=== PATIENT | male | born 1950 | race Caucasian/White ===

== ENCOUNTER 2016-07-30 11:11 | Inpatient (IN) | payer MEDICARE ==
[2016-07-30 12:18] LABS: Glucose,Whole Blood 125 mg/dL (75-99)
[2016-07-30 13:08] LABS: Anisocytosis Slight; Basophils % (A) 0 %; CH 30.4; CHCM 31.1; Eosinophils # (A) 0.1 k/uL (0-0.7); Eosinophils % (A) 1 %; HCT 36.9 % (39.0-53.0); HDW 3.21; HGB 11.2 gm/dL (13.0-17.5); Hypochromasia Moderate; Luc # (Auto) 0.18; Luc % (Auto) 2; Lymphocytes # (A) 0.7 k/uL (1.0-4.8); Lymphocytes % (A) 9 %; MCH 29.9 pg (25.0-35.0); MCHC 30.3 g/dL (31.0-37.0); MCV 98.6 fL (80.0-100.0); Macrocytosis Slight; Mean Platelet Volume 8.1; Monocytes # (A) 0.5 k/uL (0-1.0); Monocytes % (A) 7 %; Neutrophils # (A) 6.3 k/uL (1.3-7.7); Neutrophils % (A) 81 %; RBC 3.75 m/uL (4.30-5.90); WBC 7.8 k/uL (3.8-10.6); WBC (Perox) 8.12
[2016-07-30 13:12] LABS: INR 4.9 (<1.1); Prothrombin Time 48.6 sec (9.0-12.0)
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
[2016-07-30 13:58] LABS: ALT 23 U/L (21-72); AST 29 U/L (17-59); Alkaline Phosphatase 119 U/L (38-126); Anion Gap 13 mmol/L; Blood Urea Nitrogen 16 mg/dL (9-20); Calcium 9.3 mg/dL (8.4-10.2); Carbon Dioxide 30 mmol/L (22-30); Chloride 102 mmol/L (98-107); Glucose 127 mg/dL (74-99); Non-African American GFR(MDRD) >60 (>60 ml/min/1.73 sqM); Potassium 3.9 mmol/L (3.5-5.1); Sodium 145 mmol/L (137-145); Total Bilirubin 2.4 mg/dL (0.2-1.3); Total Protein 7.6 g/dL (6.3-8.2)
[2016-07-30 14:22] LABS: Hemoglobin A1C 5.7 % (4.2-6.1)
[2016-07-30] MEDS: ASPIRIN 81 MG CHEW PO SCH (14:32)
[2016-07-30 14:47] LABS: Uric Acid 3.8 mg/dL (3.5-8.5)
--- NOTE | 2016-07-30 15:16 | XR ---
EXAMINATION TYPE: XR chest 2V DATE OF EXAM: 07/30/2016 3:09 PM COMPARISON: NONE INDICATION: Dyspnea TECHNIQUE: Single frontal view of the chest is obtained. FINDINGS: The heart size is enlarged. The pulmonary vasculature is normal. There is improved retrocardiac infiltrate. Mild residual remains. Some right lower lobe infiltrate ma y be present. IMPRESSION: 1. Right lower lobe and suggestion of minimal retrocardiac infiltrate. Retrocardiac infiltrate is imp roving. 2. Cardiomegaly.
--- NOTE | 2016-07-30 15:23 | US ---
EXAMINATION TYPE: US carotid duplex BILAT DATE OF EXAM: 07/30/2016 3:02 PM COMPARISON: NONE CLINICAL HISTORY: syncope. EXAM MEASUREMENTS: RIGHT: Peak Systolic Velocity (PSV) cm/sec ----- Right CCA: 50.5 ----- Right ICA: 141.7 ----- Right ECA: 66.9 ICA/CCA ratio: 2.8 RIGHT: End Diastole cm/sec ----- Right CCA: 22.6 ----- Right ICA: 55.0 ----- Right ECA: 5.4 LEFT: Peak Systolic Velocity (PSV) cm/sec ----- Left CCA: 61.5 ----- Left ICA: 135.7 ----- Left ECA: 85.3 ICA/CCA ratio: 2.2 LEFT: End Diastole cm/sec ----- Left CCA: 16.4 ----- Left ICA: 45.1 ----- Left ECA: 12.8 VERTEBRALS (direction of flow): Right Vertebral: Antegrade Left Vertebral: Antegrade TECHNOLOGIST IMPRESSION: Moderate plaque noted bilateral bifurcations. Mildly increased velocities n oted right ICA and left ICA There is intimal thickening atheromatous plaquing within the right carotid bulb. Doppler waveforms ap pear normal. Some turbulent flow is noted within the distal right internal carotid artery. Atheromato us plaquing and intimal thickening is within the left carotid bulb. There is filling of the acoustic windows within the mid common carotid artery and proximal internal carotid artery. There is elevation of the internal carotid artery velocities bilaterally.t There is elevated ratios present bilaterally. IMPRESSION: 1. Elevated velocities with elevated ratios within the internal carotid arteries present bilaterally. This would place the degree of stenosis in the range of 50-69% bilaterally. Criteria for Assigning % of Stenosis / Diameter reduction (Estimation based on the indirect measurements of the internal carotid artery velocities (ICA PSV). 1. Normal (no stenosis)=ICA PSV < 125 cm/s: ratio < 2.0: ICA EDV<40 cm/s. 2. Less than 50% stenosis=ICA PSV < 125 cm/s: ratio < 2.0: ICA EDV<40 cm/s. 3. 50 to 69% stenosis=ICA PSV of 125 to 230 cm/s: ration 2.0 ? 4.0: ICA EDV 40-100 cm/s. 4. Greater than 70% stenosis to near occlusion= ICA PSV > 230 cm/s: ratio > 4.0: ICA EDV > 100 cm/s. 5. Near occlusion= ICA PSV velocities may be low or undetectable: variable ratio and ICA EDV. 6. Total occlusion=unable to detect flow.
[2016-07-30] MEDS: FUROSEMIDE 10 MG/ML 4 ML VIAL IV SCH ×2 (15:58→20:19)
[2016-07-30 17:08] LABS: Glucose,Whole Blood 112 mg/dL (75-99)
--- NOTE | 2016-07-30 17:31 | CONS ---
DATE OF CONSULTATION: Mr. Espitia is a 66-year-old male who was admitted directly from Dr. Rueda's office. He has a known history of what appears to be aortic valve placement many years ago, has not been followed in the cardiology office, history of chronic atrial fibrillation, hypertension, hyperlipidemia, and diabetes mellitus, who presented with progressive ulceration and lower extremities, progressive weakness and dyspnea. Two weeks ago he had an episode of fall that appears to be related to weakness as well as hypoglycemia. According to him, he did not have full syncopal episode. He denies any symptoms of chest pain. It is unclear if he had any obstructive coronary artery disease at time of his cardiac catheterization. I do not have those reports. He is very limited in his physical activity, has chronic dyspnea on exertion and progressive dyspnea as well as nonhealing ulcers in the lower extremities. I am not quite sure if evaluation of his peripheral circulation was done in the past. He has symptoms to suggest PND. No palpitation. He had the fall but no clear syncope according to him. He is unsteady walking. His coronary risk factors are remarkable for hypertension, hyperlipidemia, and diabetes mellitus. He is a nonsmoker. His medications at home include: 1. Coumadin. 2. Levothyroxine 0.025 mg daily. 3. Aspirin 81 mg daily. 4. Metformin 1 gram daily. 5. Simvastatin 40 mg daily. 6. Metoprolol titrate 25 mg twice a day. 7. Zestril 20 mg daily. 8. Glimepiride. 9. Lasix 40 mg twice a day. REVIEW OF SYSTEMS: RESPIRATORY SYSTEM: Had dyspnea on exertion. No recent wheezing or cough. GI: No recent GI bleeding. No peptic ulcer disease. system: No dysuria or hematuria. Nervous system: No history of stroke. PHYSICAL EXAMINATION: He is a 66-year-old male, alert, ( ) obese, mildly dyspneic. Blood pressure 146/90 with a heart in the 90s. HEAD: Normocephalic. EYES: Sclerae anicteric. NECK: No bruit. LUNGS: Clear to auscultation. HEART: Irregularly irregular. S1, S2, no S3, with systolic murmur 2/6 heard at the base. No diastolic murmur. No rub. ABDOMEN: Soft, obese, nontender. Extremities with ulceration noted on both legs, nonhealing, severe discoloration with 2+ edema and 1+ distal pulses. Lab data is not available. IMPRESSION: 1. Nonhealing ulcer of the lower extremities with decreased pulses. Could represent a peripheral vascular disease. 2. Episode of fall but no clear evidence of syncope. 3. Probable prior aortic valve replacement. 4. Atrial fibrillation appears to be chronic. 5. Hypertension. 6. Hyperlipidemia. 7. Diabetes mellitus. 8. Morbid obesity. RECOMMENDATION: I will obtain echocardiogram with Doppler. We will evaluate his lab data. I will try to obtain his prior work-up. I will start him on intravenous diuretics. He will be seen by Dr. Houser. If not done, he will need venous as well as an arterial duplex of his lower extremities. Depending on those findings, further recommendation will be made. Thank you for this consult. We will follow with you.
[2016-07-30] MEDS: HYDROcodone/APAP 5-325MG 1 EACH TAB PO PRN (17:58)
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
[2016-07-30] MEDS: METOPROLOL TARTRATE 25 MG TAB PO SCH (20:16)
--- NOTE | 2016-07-30 20:22 | US ---
EXAMINATION TYPE: US venous doppler duplex LE DATE OF EXAM: 07/30/2016 8:15 PM COMPARISON: NONE CLINICAL HISTORY: leg ulcers. Swelling. Patient states he takes blood thinners SIDE PERFORMED: Bilateral VESSELS IMAGED: External Iliac Vein (EIV) Common Femoral Vein Deep Femoral Vein Greater Saphenous Vein * Femoral Vein Popliteal Vein Small Saphenous Vein * Proximal Calf Veins (* superficial vessels) TECHNOLOGIST IMPRESSION: Right Leg: Negative for DVT Left Leg: Negative for DVT IMPRESSION: Normal exam. No evidence of deep venous thrombosis.
[2016-07-30 21:59] LABS: Glucose,Whole Blood 127 mg/dL (75-99)
[2016-07-31 01:55] LABS: Magnesium 1.9 mg/dL (1.6-2.3); Potassium 4.3 mmol/L (3.5-5.1)
[2016-07-31] MEDS: HYDROcodone/APAP 5-325MG 1 EACH TAB PO PRN ×3 (02:04→16:36)
[2016-07-31 06:18] LABS: Anisocytosis Slight; Basophils % (A) 0 %; Eosinophils # (A) 0.2 k/uL (0-0.7); Eosinophils % (A) 2 %; HCT 35.5 % (39.0-53.0); HDW 3.08; HGB 10.8 gm/dL (13.0-17.5); Hypochromasia Moderate; Luc # (Auto) 0.22; Luc % (Auto) 3; Lymphocytes # (A) 0.8 k/uL (1.0-4.8); Lymphocytes % (A) 10 %; MCH 29.7 pg (25.0-35.0); MCHC 30.4 g/dL (31.0-37.0); MCV 97.6 fL (80.0-100.0); Macrocytosis Slight; Monocytes # (A) 0.6 k/uL (0-1.0); Monocytes % (A) 8 %; Neutrophils % (A) 77 %; RBC 3.64 m/uL (4.30-5.90); RDW 16.8 % (11.5-15.5); WBC 7.7 k/uL (3.8-10.6); WBC (Perox) 7.99
[2016-07-31 06:31] LABS: INR 3.3 (<1.1); Prothrombin Time 32.1 sec (9.0-12.0)
[2016-07-31 06:35] LABS: ALT 28 U/L (21-72); AST 22 U/L (17-59); Alkaline Phosphatase 120 U/L (38-126); Anion Gap 11 mmol/L; Blood Urea Nitrogen 19 mg/dL (9-20); C Reactive Protein 12.9 mg/L (<10.0); Calcium 9.2 mg/dL (8.4-10.2); Carbon Dioxide 32 mmol/L (22-30); Chloride 99 mmol/L (98-107); Glucose 119 mg/dL (74-99); Non-African American GFR(MDRD) >60 (>60 ml/min/1.73 sqM); Potassium 4.2 mmol/L (3.5-5.1); Sodium 142 mmol/L (137-145); Total Bilirubin 2.3 mg/dL (0.2-1.3); Total Protein 7.5 g/dL (6.3-8.2)
[2016-07-31] MEDS: metFORMIN 500 MG TAB PO SCH (06:49)
[2016-07-31] MEDS: LEVOTHYROXINE 25 MCG TAB PO SCH (06:49)
[2016-07-31] MEDS: GLIMEPIRIDE 1 MG TAB PO SCH (06:50)
[2016-07-31 06:57] LABS: Glucose,Whole Blood 114 mg/dL (75-99)
[2016-07-31 07:26] LABS: Hepatitis B Surface Ag Index 0.08
[2016-07-31 07:32] LABS: Hepatitis B Core IgM Index 0.05
[2016-07-31 07:43] LABS: Hepatitis C Virus IgG Index 0.03
[2016-07-31] MEDS: ASPIRIN 81 MG CHEW PO SCH (07:54)
[2016-07-31] MEDS: ATORVASTATIN 20 MG TAB PO SCH (07:54)
[2016-07-31] MEDS: ALLOPURINOL 300 MG TAB PO SCH (07:54)
[2016-07-31] MEDS: FUROSEMIDE 10 MG/ML 4 ML VIAL IV SCH ×2 (07:54→21:03)
[2016-07-31] MEDS: METOPROLOL TARTRATE 25 MG TAB PO SCH ×2 (07:55→21:06)
[2016-07-31 08:00] LABS: Hepatitis C Virus IgG Ab Negative (Negative)
[2016-07-31 08:58] LABS: Erythrocyte Sedimentation Rate 50 mm/hr (0-15)
--- NOTE | 2016-07-31 09:52 | P.PN ---
Subjective Principal diagnosis: Acute congestive heart failure exacerbation Patient is a 66-year-old male with known history of aortic valve replacement and history of cardiomyopathy who was admitted to [facility] with multiple medical problems including syncopal episode, worsening shortness of breath with evidence of acute exacerbation of congestive heart failure, bilateral lower extremity cellulitis with large ulcerations on bilateral pretibial areas. He was admitted to telemetry floor he was started on IV Lasix he was seen by cardiology and by infectious disease. Today he is feeling somewhat better his shortness of breath has improved lower extremity swelling has improved he has dressing on bilateral lower extremities. He denies any chest pain no dizziness no nausea or vomiting no abdominal pain and no urinary symptoms. Objective - Vital Signs Vital signs: Vital Signs Temp 97.3 F L 07/31/16 07:48 Pulse 94 07/31/16 07:48 Resp 18 07/31/16 07:48 BP 124/73 07/31/16 07:48 Pulse Ox 92 L 07/31/16 07:48 Intake & Output 07/30/16 07/31/16 07/31/16 18:59 06:59 18:59 Intake Total 240 600 240 Output Total 800 1250 Balance -560 -650 240 Weight 132.6 kg 131.5 kg Intake: Oral 240 600 240 Output: Urine 800 1250 - Exam In general patient is alert and oriented 3 in no apparent distress HEENT head normocephalic and atraumatic Neck is supple no JVD no goiter no lymphadenopathy Chest exam reveals a scattered crackles in both lung helton no wheezing Cardiac exam reveals irregular heart sounds no gallops no murmurs Abdomen is soft nontender no organomegaly Extremity exam reveals 3+ edema, with large ulcers on bilateral lower extremities no cyanosis or clubbing Skin exam reveals generalized purpura rash on upper and lower extremities - Labs CBC & Chem 7: 07/31/16 05:31 07/31/16 05:31 Labs: Abnormal Lab Results - Last 24 Hours (Table) 07/30/16 07/30/16 07/30/16 Range/Units 12:09 12:44 12:44 RBC 3.75 L (4.30-5.90) m/uL Hgb 11.2 L (13.0-17.5) gm/dL Hct 36.9 L (39.0-53.0) % MCHC 30.3 L (31.0-37.0) g/dL RDW 17.0 H (11.5-15.5) % Lymphocytes # 0.7 L (1.0-4.8) k/uL ESR (0-15) mm/hr PT (9.0-12.0) sec Carbon Dioxide (22-30) mmol/L Glucose 127 H (74-99) mg/dL POC Glucose (mg/dL) 125 H (75-99) mg/dL Total Bilirubin 2.4 H (0.2-1.3) mg/dL C-Reactive Protein (<10.0) mg/L TSH 4.720 H (0.465-4.680) mIU/L 07/30/16 07/30/16 07/30/16 Range/Units 12:44 16:47 21:57 RBC (4.30-5.90) m/uL Hgb (13.0-17.5) gm/dL Hct (39.0-53.0) % MCHC (31.0-37.0) g/dL RDW (11.5-15.5) % Lymphocytes # (1.0-4.8) k/uL ESR (0-15) mm/hr PT 48.6 H (9.0-12.0) sec Carbon Dioxide (22-30) mmol/L Glucose (74-99) mg/dL POC Glucose (mg/dL) 112 H 127 H (75-99) mg/dL Total Bilirubin (0.2-1.3) mg/dL C-Reactive Protein (<10.0) mg/L TSH (0.465-4.680) mIU/L 07/31/16 07/31/16 07/31/16 Range/Units 05:31 05:31 05:31 RBC 3.64 L (4.30-5.90) m/uL Hgb 10.8 L (13.0-17.5) gm/dL Hct 35.5 L (39.0-53.0) % MCHC 30.4 L (31.0-37.0) g/dL RDW 16.8 H (11.5-15.5) % Lymphocytes # 0.8 L (1.0-4.8) k/uL ESR 50 H (0-15) mm/hr PT 32.1 H (9.0-12.0) sec Carbon Dioxide 32 H (22-30) mmol/L Glucose 119 H (74-99) mg/dL POC Glucose (mg/dL) (75-99) mg/dL Total Bilirubin 2.3 H (0.2-1.3) mg/dL C-Reactive Protein 12.9 H (<10.0) mg/L TSH (0.465-4.680) mIU/L 07/31/16 Range/Units 06:45 RBC (4.30-5.90) m/uL Hgb (13.0-17.5) gm/dL Hct (39.0-53.0) % MCHC (31.0-37.0) g/dL RDW (11.5-15.5) % Lymphocytes # (1.0-4.8) k/uL ESR (0-15) mm/hr PT (9.0-12.0) sec Carbon Dioxide (22-30) mmol/L Glucose (74-99) mg/dL POC Glucose (mg/dL) 114 H (75-99) mg/dL Total Bilirubin (0.2-1.3) mg/dL C-Reactive Protein (<10.0) mg/L TSH (0.465-4.680) mIU/L Assessment and Plan Plan: #1 syncopal episode, patient described waiting for the bus on his porch when the bus came in he walked down the 3 steps off his porch and then he felt dizzy and fell to the ground the electrician bus came down to help him he regained consciousness momentarily this happened few days prior to admission. At this time will check echocardiogram and carotid Doppler. #2 worsening dyspnea, likely acute diastolic congestive heart failure exacerbation, echocardiogram was ordered and cardiology consult requested patient was started on IV Lasix #3 coagulopathy Will hold Coumadin and monitor INR closely #4 bilateral lower extremity cellulitis was large ulcers, infectious disease consultation was requested #5 underlying history of [id number] diabetes mellitus millimeters, will check hemoglobin A1c will continue was his home medications at this time #6 underlying history of gout, resume allopurinol #7 for GI prophylaxis we will use Pepcid, for DVT prophylaxis will continue with Coumadin, dose need to be adjusted Will follow patient closely awaiting input from cardiology and infectious disease
[2016-07-31 11:39] LABS: Prealbumin 12 mg/dL (18-36)
[2016-07-31 11:49] LABS: Glucose,Whole Blood 72 mg/dL (75-99)
--- NOTE | 2016-07-31 12:11 | PN ---
Mr. Espitia is a 66-year-old male with a known history of aortic valve replacement for bicuspid aortic valve and severe aortic regurgitation, history of atrial fibrillation in the past, status post cardioversion in the past but with permanent atrial fibrillation at this time, history of cardiomyopathy who presented with symptoms of progressive dyspnea. He is feeling slightly better today. He was seen by Dr. Houser and treatment of his ulceration was initiated. He is denying any chest pain. No dizziness. No palpitation. He denies any PND or orthopnea. He has no palpitation. He continued to be on aspirin 81 mg daily, Lipitor 20 mg daily, furosemide 40 mg IV q.12 hours, lisinopril 20 mg daily, metoprolol tartrate 25 mg twice a day and metformin. PHYSICAL EXAMINATION: Blood pressure 124/70 with the heart rate in the 90s. LUNGS: With a few crackles bilaterally. No wheezes. HEART: Irregularly, irregular, S1, S2, no S3, with a systolic murmur at the base. No diastolic murmur. No rub. ABDOMEN: Soft, obese and nontender. EXTREMITIES: Van wrapping in place. Lab data revealed an INR of 3.3. BUN and creatinine 19 and 1.0. Potassium 4.2. Hemoglobin of 10.8. IMPRESSION: 1. Status post aortic valve replacement with prior history of cardiomyopathy. 2. Chronic atrial fibrillation. 3. Peripheral ulceration. His venous duplex scan revealed no evidence of deep venous thrombosis. He has underwent an arterial duplex scan and the results are pending. 4. Obesity. 5. Recent episode of presyncope. 6. History of diabetes. 7. Hyperlipidemia. RECOMMENDATION: From the cardiac standpoint, will continue present therapy. I will continue on IV Lasix and anticoagulation. I will review the results of his echocardiogram and depending on his progress, further recommendation will be made.
[2016-07-31] MEDS: LISINOPRIL 20 MG TAB PO SCH (16:36)
[2016-07-31 16:40] LABS: Glucose,Whole Blood 81 mg/dL (75-99)
[2016-07-31] MEDS ORDERED: METOPROLOL TARTRATE 25 MG TAB PO STA (19:08)
--- NOTE | 2016-07-31 20:57 | P.PN ---
Subjective Principal diagnosis: yncope with lower extremity edema 66-year-old male who is somewhat of a poor historian presents to the physician's office with a complaint of an episode of syncope and increasing weakness. The patient apparently has been ill over the last year with increasing difficulties with fatigue and worsening exercise tolerance. He developed increasing lower extremity edema and ulcerations. He was caring for them with local products at home including baby powder. This was not working and the ulcerations were continuing to increase in number and size. Not until he had the syncopal event at his home where he bruised his left arm that he finally seek care. It appears his 2 brothers helped him seek care. He lives in a home with his 90-year-old mother. The 2 other brothers do help with the overall care such that they do the shopping and help with the cooking. The patient apparently has been medically disabled since his mid 50s. Relates to feeling better today. Lower extremity edema is slightly improved. He is less short of breath and has been eating well. Relates to good urinary output. Objective - Vital Signs Vital signs: Vital Signs Temp 97.3 F L 07/31/16 07:48 Pulse 75 07/31/16 20:00 Resp 18 07/31/16 20:00 BP 114/75 07/31/16 20:00 Pulse Ox 92 L 07/31/16 20:00 Intake & Output 07/31/16 07/31/16 08/01/16 06:59 18:59 06:59 Intake Total 600 700 Output Total 1250 800 Balance -650 -100 Weight 131.5 kg 131.5 kg Intake: Oral 600 700 Output: Urine 1250 800 Other: Voiding Method Urinal - Exam Obese 66-year-old male seems to be comfortable sitting upright on the bedside. HEENT: Anicteric conjunctiva are pink and moist nasal mucosa grossly intact without significant lesions, there is no thrush. Poor dentition Neck: The neck is supple without significant lymphadenopathy or thyromegaly. Lungs: There is symmetrical air entry, few basilar crackles scattered wheezes without zeus bronchial sounds or egophony being noted Heart: Irregular with an audible S1 and S2. Soft S4 2/6 systolic murmur left sternal border that radiates to the carotid PMI is nondisplaced Abdomen: Obese, Positive bowel sounds soft and nontender without palpable masses or organomegaly. There was no guarding or rebound. Extremities: The upper extremities show evidence of the bruising to the left arm proximal to the elbow, there is evidence of muscular wasting. The lower extremities have evidence of just trace edema at this time. Skin patient is evidence of the multiple full-thickness ulcerations on the bilateral lower extremities with eschar at the base. He does have a few lesions on the abdominal wall on his pannus. The bruises left arm is without any ulceration. Although does have evidence of some rash-like changes of the bilateral upper extremities and he is not clear how long that has been present. The lower extremity ulcerations have been present for at least a year Neuro: Awake alert oriented to person place and time. Follows simple commands. Appears to have a limited IQ - Labs CBC & Chem 7: 07/31/16 05:31 07/31/16 05:31 Labs: Abnormal Lab Results - Last 24 Hours (Table) 07/30/16 07/31/16 07/31/16 Range/Units 21:57 05:31 05:31 RBC 3.64 L (4.30-5.90) m/uL Hgb 10.8 L (13.0-17.5) gm/dL Hct 35.5 L (39.0-53.0) % MCHC 30.4 L (31.0-37.0) g/dL RDW 16.8 H (11.5-15.5) % Lymphocytes # 0.8 L (1.0-4.8) k/uL ESR 50 H (0-15) mm/hr PT (9.0-12.0) sec Carbon Dioxide 32 H (22-30) mmol/L Glucose 119 H (74-99) mg/dL POC Glucose (mg/dL) 127 H (75-99) mg/dL Total Bilirubin 2.3 H (0.2-1.3) mg/dL C-Reactive Protein 12.9 H (<10.0) mg/L Prealbumin 12 L (18-36) mg/dL 07/31/16 07/31/16 07/31/16 Range/Units 05:31 06:45 11:48 RBC (4.30-5.90) m/uL Hgb (13.0-17.5) gm/dL Hct (39.0-53.0) % MCHC (31.0-37.0) g/dL RDW (11.5-15.5) % Lymphocytes # (1.0-4.8) k/uL ESR (0-15) mm/hr PT 32.1 H (9.0-12.0) sec Carbon Dioxide (22-30) mmol/L Glucose (74-99) mg/dL POC Glucose (mg/dL) 114 H 72 L (75-99) mg/dL Total Bilirubin (0.2-1.3) mg/dL C-Reactive Protein (<10.0) mg/L Prealbumin (18-36) mg/dL Microbiology - Last 24 Hours (Table) 07/30/16 17:47 Gram Stain - Preliminary Leg - Right Wound Culture - Preliminary Laboratory Results WBC 7.7 k/uL (3.8-10.6) 07/31/16 05:31 RBC 3.64 m/uL (4.30-5.90) L 07/31/16 05:31 Hgb 10.8 gm/dL (13.0-17.5) L 07/31/16 05:31 Hct 35.5 % (39.0-53.0) L 07/31/16 05:31 MCV 97.6 fL (80.0-100.0) 07/31/16 05:31 MCH 29.7 pg (25.0-35.0) 07/31/16 05:31 MCHC 30.4 g/dL (31.0-37.0) L 07/31/16 05:31 RDW 16.8 % (11.5-15.5) H 07/31/16 05:31 Plt Count 270 k/uL (150-450) 07/31/16 05:31 Neutrophils % 77 % 07/31/16 05:31 Lymphocytes % 10 % 07/31/16 05:31 Monocytes % 8 % 07/31/16 05:31 Eosinophils % 2 % 07/31/16 05:31 Basophils % 0 % 07/31/16 05:31 Neutrophils # 6.0 k/uL (1.3-7.7) 07/31/16 05:31 Lymphocytes # 0.8 k/uL (1.0-4.8) L 07/31/16 05:31 Monocytes # 0.6 k/uL (0-1.0) 07/31/16 05:31 Eosinophils # 0.2 k/uL (0-0.7) 07/31/16 05:31 Basophils # 0.0 k/uL (0-0.2) 07/31/16 05:31 Hypochromasia Moderate 07/31/16 05:31 Anisocytosis Slight 07/31/16 05:31 Macrocytosis Slight 07/31/16 05:31 ESR 50 mm/hr (0-15) H 07/31/16 05:31 PT 32.1 sec (9.0-12.0) H 07/31/16 05:31 INR 3.3 (<1.1) 07/31/16 05:31 Sodium 142 mmol/L (137-145) 07/31/16 05:31 Potassium 4.2 mmol/L (3.5-5.1) 07/31/16 05:31 Chloride 99 mmol/L (98-107) 07/31/16 05:31 Carbon Dioxide 32 mmol/L (22-30) H 07/31/16 05:31 Anion Gap 11 mmol/L 07/31/16 05:31 BUN 19 mg/dL (9-20) 07/31/16 05:31 Creatinine 1.00 mg/dL (0.66-1.25) 07/31/16 05:31 Est GFR (MDRD) Af Amer >60 (>60 ml/min/1.73 sqM) 07/31/16 05:31 Est GFR (MDRD) Non-Af >60 (>60 ml/min/1.73 sqM) 07/31/16 05:31 Glucose 119 mg/dL (74-99) H 07/31/16 05:31 POC Glucose (mg/dL) 81 mg/dL (75-99) 07/31/16 16:38 POC Glu Top Lift Nailer ID Silvia Quiles 07/31/16 16:[address] Glu mg/dL 117 mg/dL 07/30/16 13:50 Hemoglobin A1c 5.7 % (4.2-6.1) 07/30/16 13:50 Uric Acid 3.8 mg/dL (3.5-8.5) 07/30/16 12:44 Calcium 9.2 mg/dL (8.4-10.2) 07/31/16 05:31 Magnesium 1.9 mg/dL (1.6-2.3) 07/31/16 01:20 Total Bilirubin 2.3 mg/dL (0.2-1.3) H 07/31/16 05:31 AST 22 U/L (17-59) 07/31/16 05:31 ALT 28 U/L (21-72) 07/31/16 05:31 Alkaline Phosphatase 120 U/L (38-126) 07/31/16 05:31 C-Reactive Protein 12.9 mg/L (<10.0) H 07/31/16 05:31 NT-Pro-B Natriuret Pep 5800 pg/mL 07/30/16 12:44 Total Protein 7.5 g/dL (6.3-8.2) 07/31/16 05:31 Albumin 3.9 g/dL (3.5-5.0) 07/31/16 05:31 Prealbumin 12 mg/dL (18-36) L 07/31/16 05:31 TSH 4.720 mIU/L (0.465-4.680) H 07/30/16 12:44 Hepatitis A IgM Ab NEGATIVE 07/31/16 05:31 Hep Bs Antigen Negative 07/31/16 05:31 Hep B Core IgM Ab NEGATIVE 07/31/16 05:31 Hep C IgG Ab Negative (Negative) 07/31/16 05:31 Microbiology 07/30/16 17:47 Leg - Right Gram Stain - Preliminary 07/30/16 17:47 Leg - Right Wound Culture - Preliminary Duplex negative for deep venous thrombosis. Arterial Dopplers are pending. Assessment and Plan (1) Lower extremity ulceration Narrative/Plan: 66-year-old male who has a history of significant underlying medical issues including aortic valve replacement and a recent bout of syncope. He relates to about a one-year history of ulcerations to his bilateral lower extremities have been worsening over time. Is doing some in-home care such as local creams and baby powder which has not helped the ulcers improved. Because of the syncopal event in his worsening functional status he was brought to Hospital with concerns to worsening of congestive heart failure. Echocardiogram has been ordered as has carotid Dopplers. These are pending at this time. The patient is evidence of chronic lower extremity ulcerations and arterial Dopplers are in process and awaited but the venous studies show notice any deep venous thrombosis In the meantime cultures obtained and local wound care with Silvadene and a light wrap will be applied. The patient was concerned that he could be at risk for losing his legs. We discussed at the moment that workup is needed but he does not have evidence of gangrenous changes necessitating amputation at this time. His diabetes appears to be well controlled Evaluation of his cardiovascular status is in process to evaluate impact of his cardiovascular status on his lower extremities. Given his obesity and abnormal liver functions hepatitis panel was checked and is negative for viral hepatitis. Status: Acute (2) H/O aortic valve replacement Status: Acute (3) Warfarin-induced coagulopathy Status: Acute (4) Obesity Status: Acute
[2016-07-31 21:10] LABS: Glucose,Whole Blood 101 mg/dL (75-99)
[2016-08-01] MEDS: HYDROcodone/APAP 5-325MG 1 EACH TAB PO PRN ×3 (04:06→23:47)
[2016-08-01 06:18] LABS: Glucose,Whole Blood 88 mg/dL (75-99)
[2016-08-01] MEDS: metFORMIN 500 MG TAB PO SCH (06:55)
[2016-08-01] MEDS: LEVOTHYROXINE 25 MCG TAB PO SCH (06:55)
[2016-08-01 07:01] LABS: Prothrombin Time 19.7 sec (9.0-12.0)
[2016-08-01 07:12] LABS: Anion Gap 12 mmol/L; Blood Urea Nitrogen 28 mg/dL (9-20); Calcium 9.3 mg/dL (8.4-10.2); Carbon Dioxide 29 mmol/L (22-30); Chloride 99 mmol/L (98-107); Glucose 82 mg/dL (74-99); Non-African American GFR(MDRD) >60 (>60 ml/min/1.73 sqM); Potassium 3.9 mmol/L (3.5-5.1); Sodium 140 mmol/L (137-145)
--- NOTE | 2016-08-01 09:02 | PN ---
Mr. Espitia is a 66-year-old male with known history of bicuspid aortic valve, status post aortic valve replacement, history of cardiomyopathy in the past, atrial fibrillation who presented with progressive ulceration and edema in the lower extremities as well as dyspnea. He is feeling better today. He has no chest pain. He feels that his breathing is better, but he had an episode of nonsustained ventricular tachycardia that was asymptomatic yesterday. He is unaware of the arrhythmia. He denies any dizziness, palpitation. He is back in atrial fibrillation with controlled ventricular response. He continued to be on metoprolol 25 mg twice a day, Lipitor 20 mg daily, aspirin 81 mg daily, Lasix 40 mg IV q.12 hours, levothyroxine 0.025 mg daily, lisinopril 20 mg daily and metformin. PHYSICAL EXAMINATION: Blood pressure 130/80 with a heart rate in the 80s. LUNGS: No wheezes. HEART: Irregularly irregular. S1, S2, no S3, with systolic murmur heard at the base. No diastolic murmur. No rub. ABDOMEN: Soft, obese, nontender. EXTREMITIES: With Van wrapping in place. Edema noted. Lab data revealed BUN and creatinine 28 and 1.19. Potassium 3.9, INR of 2.0. IMPRESSION: 1. Prior history of cardiomyopathy, status post aortic valve replacement for bicuspid aortic valve. 2. Atrial fibrillation, chronic. 3. Peripheral cellulitis, awaiting the arterial duplex scan. 4. History of hypertension. 5. Diabetes. RECOMMENDATION: I will await the results of his echocardiogram, I will increase the dose of his beta leigh. Depending on his left ventricular systolic function, he may be a candidate for ICD implantation. I will continue the intravenous diuresis. Will follow his renal function and magnesium. I will continue on the diuresis and depending on his peripheral edema and his breathing, further recommendation will be made. Patient has been seen by Dr. Houser regarding his infections and ulceration in the lower extremities.
[2016-08-01] MEDS: GLIMEPIRIDE 1 MG TAB PO SCH (09:53)
[2016-08-01] MEDS: ASPIRIN 81 MG CHEW PO SCH (09:54)
[2016-08-01] MEDS: ALLOPURINOL 300 MG TAB PO SCH (09:54)
[2016-08-01] MEDS: FUROSEMIDE 10 MG/ML 4 ML VIAL IV SCH ×2 (09:54→20:13)
[2016-08-01] MEDS: LISINOPRIL 20 MG TAB PO SCH (09:54)
[2016-08-01] MEDS: METOPROLOL TARTRATE 50 MG TAB PO SCH ×2 (09:54→20:13)
[2016-08-01] MEDS: ATORVASTATIN 20 MG TAB PO SCH (09:54)
--- NOTE | 2016-08-01 10:06 | ECHOF ---
Referral Reason:syncope MEASUREMENTS -------- HEIGHT: 167.6 cm WEIGHT: 132.4 kg BP: RVIDd: 5.0 cm (< 3.3) IVSd: 1.3 cm (0.6 - 1.1) LVIDd: 4.9 cm (3.9 - 5.3) LVPWd: 1.6 cm (0.6 - 1.1) IVSs: 2.2 cm LVIDs: 3.3 cm LVPWs: 1.7 cm Ao Diam: 3.6 cm (2.0 - 3.7) AV Cusp: 1.6 cm (1.5 - 2.6) LA Diam: 4.8 cm (2.7 - 3.8) MV EXCURSION: 20.824 mm (> 18.000) MV EF SLOPE: 99 mm/s (70 - 150) EPSS: 1.8 cm MV E Aiden: 1.27 m/s MV DecT: 249 ms MV A Aiden: 0.26 m/s MV E/A Ratio: 4.87 AV maxP.09 mmHg AV meanP.74 mmHg RAP: 5.00 mmHg RVSP: 81.85 mmHg FINDINGS -------- Sinus rhythm. This was a technically difficult study with suboptimal views. There is moderate concentric left ventricular hypertrophy. Overall left ventricular systolic function is low-normal with, an EF between 50 - 55 %. There is paradoxical/dysynergic septal motion consistent with right ventricular volume overload and/or elevated right ventricular end-diastolic pressure. The right ventricle is severely enlarged. The left atrium is moderately dilated. The right atrium was not well visualized. 1.5mg of Definity was utilized for enhancement of images Aortic valve is trileaflet and is mildly thickened. There is no evidence of aortic regurgitation. Peak/mean gradient across the Aortic Valve is 22.09mmHg / 12.74mmHg. Normally functioning bioprosthetic valve. The mitral valve leaflets are mildly thickened. Mild mitral regurgitation is present. Moderate to severe tricuspid regurgitation present. There is severe pulmonary hypertension. The right ventricular systolic pressure, as measured by Doppler, is 81.85mmHg. Pulmonic valve appears structurally normal. The aortic root size is normal. The pericardium is normal. CONCLUSIONS -------- 1. Sinus rhythm. 2. Aortic valve is trileaflet and is mildly thickened. 3. There is no evidence of aortic regurgitation. 4. Peak/mean gradient across the Aortic Valve is 22.09mmHg / 12.74mmHg. 5. Normally functioning bioprosthetic valve. 6. The mitral valve leaflets are mildly thickened. 7. Mild mitral regurgitation is present. 8. Moderate to severe tricuspid regurgitation present. 9. There is severe pulmonary hypertension. 10. The right ventricular systolic pressure, as measured by Doppler, is 81.85mmHg. 11. Pulmonic valve appears structurally normal. 12. This was a technically difficult study with suboptimal views. 13. The aortic root size is normal. 14. The pericardium is normal. 15. There is moderate concentric left ventricular hypertrophy. 16. Overall left ventricular systolic function is low-normal with, an EF between 50 - 55 %. 17. There is paradoxical/dysynergic septal motion consistent with right ventricular volume overload and/or elevated right ventricular end-diastolic pressure. 18. The right ventricle is severely enlarged. 19. The left atrium is moderately dilated. 20. The right atrium was not well visualized. 21. 1.5mg of Definity was utilized for enhancement of images RAND SEWER: Kalyani Rossi RDCS
[2016-08-01 11:45] LABS: Glucose,Whole Blood 119 mg/dL (75-99)
[2016-08-01 16:52] LABS: Glucose,Whole Blood 102 mg/dL (75-99)
[2016-08-01] MEDS: ceFAZolin 2 GM in SODIUM CHLORIDE 0.9% 100 ML IVPB SCH ×2 (18:00→23:47)
[2016-08-01] MEDS ORDERED: WARFARIN 5 MG TAB PO ONE (18:00)
--- NOTE | 2016-08-01 18:08 | P.PN ---
Subjective Principal diagnosis: Acute congestive heart failure exacerbation Patient is a 66-year-old male with known history of aortic valve replacement and history of cardiomyopathy who was admitted to [facility] with multiple medical problems including syncopal episode, worsening shortness of breath with evidence of acute exacerbation of congestive heart failure, bilateral lower extremity cellulitis with large ulcerations on bilateral pretibial areas. He was admitted to telemetry floor he was started on IV Lasix he was seen by cardiology and by infectious disease. Today he is feeling somewhat better his shortness of breath has improved lower extremity swelling has improved he has dressing on bilateral lower extremities. He denies any chest pain no dizziness no nausea or vomiting no abdominal pain and no urinary symptoms. Objective - Vital Signs Vital signs: Vital Signs Temp 98.2 F 08/01/16 16:00 Pulse 69 08/01/16 16:00 Resp 18 08/01/16 16:00 BP 118/75 08/01/16 16:00 Pulse Ox 96 08/01/16 16:00 Intake & Output 07/31/16 08/01/16 08/01/16 18:59 06:59 18:59 Intake Total 700 20 Output Total 800 240 400 Balance -100 -220 -400 Weight 131.5 kg 132.9 kg Intake: IV 20 IV Flush 20 Oral 700 Output: Urine 800 240 400 Other: Voiding Method Urinal Urinal - Exam In general patient is alert and oriented 3 in no apparent distress HEENT head normocephalic and atraumatic Neck is supple no JVD no goiter no lymphadenopathy Chest exam reveals a scattered crackles in both lung helton no wheezing Cardiac exam reveals irregular heart sounds no gallops no murmurs Abdomen is soft nontender no organomegaly Extremity exam reveals 3+ edema, with large ulcers on bilateral lower extremities no cyanosis or clubbing Skin exam reveals generalized purpura rash on upper and lower extremities - Labs CBC & Chem 7: 07/31/16 05:31 08/01/16 06:12 Labs: Abnormal Lab Results - Last 24 Hours (Table) 07/31/16 08/01/16 08/01/16 Range/Units 21:08 06:12 06:14 PT 19.7 H (9.0-12.0) sec BUN 28 H (9-20) mg/dL POC Glucose (mg/dL) 101 H (75-99) mg/dL 08/01/16 08/01/16 Range/Units 11:38 16:49 PT (9.0-12.0) sec BUN (9-20) mg/dL POC Glucose (mg/dL) 119 H 102 H (75-99) mg/dL Microbiology - Last 24 Hours (Table) 07/30/16 17:47 Gram Stain - Preliminary Leg - Right Wound Culture - Preliminary Presumptive Staph aureus Strep pyogenes (grp a) Assessment and Plan Plan: #1 syncopal episode, patient described waiting for the bus on his porch when the bus came in he walked down the 3 steps off his porch and then he felt dizzy and fell to the ground the business management consultant came down to help him he regained consciousness momentarily this happened few days prior to admission. At this time will check echocardiogram and carotid Doppler. #2 worsening dyspnea, likely acute diastolic congestive heart failure exacerbation, echocardiogram was ordered and cardiology consult requested patient was started on IV Lasix #3 coagulopathy, resolved will resume on Coumadin today #4 bilateral lower extremity cellulitis was large ulcers, infectious disease consultation was requested, maintained on IV cefazolin #5 underlying history of [id number] diabetes mellitus millimeters, will check hemoglobin A1c will continue was his home medications at this time #6 underlying history of gout, resume allopurinol #7 for GI prophylaxis we will use Pepcid, for DVT prophylaxis will continue with Coumadin, dose need to be adjusted Will follow patient closely awaiting input from cardiology and infectious disease
--- NOTE | 2016-08-01 18:21 | P.PN ---
Subjective Principal diagnosis: syncope with lower extremity edema 66-year-old male who is somewhat of a poor historian presents to the physician's office with a complaint of an episode of syncope and increasing weakness. The patient apparently has been ill over the last year with increasing difficulties with fatigue and worsening exercise tolerance. He developed increasing lower extremity edema and ulcerations. He was caring for them with local products at home including baby powder. This was not working and the ulcerations were continuing to increase in number and size. Not until he had the syncopal event at his home where he bruised his left arm that he finally seek care. It appears his 2 brothers helped him seek care. He lives in a home with his 90-year-old mother. The 2 other brothers do help with the overall care such that they do the shopping and help with the cooking. The patient apparently has been medically disabled since his mid 50s. Relates to feeling better today. Lower extremity edema is slightly improved. He is less short of breath and has been eating well. Relates to good urinary output. Objective - Vital Signs Vital signs: Vital Signs Temp 98.2 F 08/01/16 16:00 Pulse 69 08/01/16 16:00 Resp 18 08/01/16 16:00 BP 118/75 08/01/16 16:00 Pulse Ox 96 08/01/16 16:00 Intake & Output 07/31/16 08/01/16 08/01/16 18:59 06:59 18:59 Intake Total 700 20 Output Total 800 240 400 Balance -100 -220 -400 Weight 131.5 kg 132.9 kg Intake: IV 20 IV Flush 20 Oral 700 Output: Urine 800 240 400 Other: Voiding Method Urinal Urinal - Exam Obese 66-year-old male seems to be comfortable sitting upright on the bedside. HEENT: Anicteric conjunctiva are pink and moist nasal mucosa grossly intact without significant lesions, there is no thrush. Poor dentition Neck: The neck is supple without significant lymphadenopathy or thyromegaly. Lungs: There is symmetrical air entry, few basilar crackles scattered wheezes without zeus bronchial sounds or egophony being noted Heart: Irregular with an audible S1 and S2. Soft S4 2/6 systolic murmur left sternal border that radiates to the carotid PMI is nondisplaced Abdomen: Obese, Positive bowel sounds soft and nontender without palpable masses or organomegaly. There was no guarding or rebound. Extremities: The upper extremities show evidence of the bruising to the left arm proximal to the elbow, there is evidence of muscular wasting. The lower extremities have evidence of just trace edema at this time. Skin patient is evidence of the multiple full-thickness ulcerations on the bilateral lower extremities with eschar at the base. He does have a few lesions on the abdominal wall on his pannus. The bruises left arm is without any ulceration. Although does have evidence of some rash-like changes of the bilateral upper extremities and he is not clear how long that has been present. The lower extremity ulcerations have been present for at least a year, improving with the Silvadene wrap. Neuro: Awake alert oriented to person place and time. Follows simple commands. Appears to have a limited IQ - Labs CBC & Chem 7: 07/31/16 05:31 08/01/16 06:12 Labs: Abnormal Lab Results - Last 24 Hours (Table) 07/31/16 08/01/16 08/01/16 Range/Units 21:08 06:12 06:14 PT 19.7 H (9.0-12.0) sec BUN 28 H (9-20) mg/dL POC Glucose (mg/dL) 101 H (75-99) mg/dL 08/01/16 08/01/16 Range/Units 11:38 16:49 PT (9.0-12.0) sec BUN (9-20) mg/dL POC Glucose (mg/dL) 119 H 102 H (75-99) mg/dL Microbiology - Last 24 Hours (Table) 07/30/16 17:47 Gram Stain - Preliminary Leg - Right Wound Culture - Preliminary Presumptive Staph aureus Strep pyogenes (grp a) Laboratory Results WBC 7.7 k/uL (3.8-10.6) 07/31/16 05:31 RBC 3.64 m/uL (4.30-5.90) L 07/31/16 05:31 Hgb 10.8 gm/dL (13.0-17.5) L 07/31/16 05:31 Hct 35.5 % (39.0-53.0) L 07/31/16 05:31 MCV 97.6 fL (80.0-100.0) 07/31/16 05:31 MCH 29.7 pg (25.0-35.0) 07/31/16 05:31 MCHC 30.4 g/dL (31.0-37.0) L 07/31/16 05:31 RDW 16.8 % (11.5-15.5) H 07/31/16 05:31 Plt Count 270 k/uL (150-450) 07/31/16 05:31 Neutrophils % 77 % 07/31/16 05:31 Lymphocytes % 10 % 07/31/16 05:31 Monocytes % 8 % 07/31/16 05:31 Eosinophils % 2 % 07/31/16 05:31 Basophils % 0 % 07/31/16 05:31 Neutrophils # 6.0 k/uL (1.3-7.7) 07/31/16 05:31 Lymphocytes # 0.8 k/uL (1.0-4.8) L 07/31/16 05:31 Monocytes # 0.6 k/uL (0-1.0) 07/31/16 05:31 Eosinophils # 0.2 k/uL (0-0.7) 07/31/16 05:31 Basophils # 0.0 k/uL (0-0.2) 07/31/16 05:31 Hypochromasia Moderate 07/31/16 05:31 Anisocytosis Slight 07/31/16 05:31 Macrocytosis Slight 07/31/16 05:31 ESR 50 mm/hr (0-15) H 07/31/16 05:31 PT 19.7 sec (9.0-12.0) H 08/01/16 06:14 INR 2.0 (<1.1) 08/01/16 06:14 Sodium 140 mmol/L (137-145) 08/01/16 06:12 Potassium 3.9 mmol/L (3.5-5.1) 08/01/16 06:12 Chloride 99 mmol/L (98-107) 08/01/16 06:12 Carbon Dioxide 29 mmol/L (22-30) 08/01/16 06:12 Anion Gap 12 mmol/L 08/01/16 06:12 BUN 28 mg/dL (9-20) H 08/01/16 06:12 Creatinine 1.19 mg/dL (0.66-1.25) 08/01/16 06:12 Est GFR (MDRD) Af Amer >60 (>60 ml/min/1.73 sqM) 08/01/16 06:12 Est GFR (MDRD) Non-Af >60 (>60 ml/min/1.73 sqM) 08/01/16 06:12 Glucose 82 mg/dL (74-99) 08/01/16 06:12 POC Glucose (mg/dL) 102 mg/dL (75-99) H 08/01/16 16:49 POC Glu Hand Thermal Cutter ID Mary Swanson 08/01/16 16:[address] Glu mg/dL 117 mg/dL 07/30/16 13:50 Hemoglobin A1c 5.7 % (4.2-6.1) 07/30/16 13:50 Uric Acid 3.8 mg/dL (3.5-8.5) 07/30/16 12:44 Calcium 9.3 mg/dL (8.4-10.2) 08/01/16 06:12 Magnesium 1.8 mg/dL (1.6-2.3) 08/01/16 06:12 Total Bilirubin 2.3 mg/dL (0.2-1.3) H 07/31/16 05:31 AST 22 U/L (17-59) 07/31/16 05:31 ALT 28 U/L (21-72) 07/31/16 05:31 Alkaline Phosphatase 120 U/L (38-126) 07/31/16 05:31 C-Reactive Protein 12.9 mg/L (<10.0) H 07/31/16 05:31 NT-Pro-B Natriuret Pep 5800 pg/mL 07/30/16 12:44 Total Protein 7.5 g/dL (6.3-8.2) 07/31/16 05:31 Albumin 3.9 g/dL (3.5-5.0) 07/31/16 05:31 Prealbumin 12 mg/dL (18-36) L 07/31/16 05:31 TSH 4.720 mIU/L (0.465-4.680) H 07/30/16 12:44 Hepatitis A IgM Ab NEGATIVE 07/31/16 05:31 Hep Bs Antigen Negative 07/31/16 05:31 Hep B Core IgM Ab NEGATIVE 02/28/17 05:31 Hep C IgG Ab Negative (Negative) 07/31/16 05:31 Microbiology 07/30/16 17:47 Leg - Right Gram Stain - Preliminary 07/30/16 17:47 Leg - Right Wound Culture - Preliminary Presumptive Staph aureus Strep pyogenes (grp a) Assessment and Plan (1) Lower extremity ulceration Narrative/Plan: 66-year-old male who has a history of significant underlying medical issues including aortic valve replacement and a recent bout of syncope. He relates to about a one-year history of ulcerations to his bilateral lower extremities have been worsening over time. Is doing some in-home care such as local creams and baby powder which has not helped the ulcers improved. Because of the syncopal event in his worsening functional status he was brought to Hospital with concerns to worsening of congestive heart failure. Echocardiogram has been ordered as has carotid Dopplers. These are pending at this time. The patient is evidence of chronic lower extremity ulcerations and arterial Dopplers are in process and awaited but the venous studies show notice any deep venous thrombosis In the meantime cultures obtained and local wound care with Silvadene and a light wrap will be applied. The patient was concerned that he could be at risk for losing his legs. We discussed at the moment that workup is needed but he does not have evidence of gangrenous changes necessitating amputation at this time. His diabetes appears to be well controlled Evaluation of his cardiovascular status is in process to evaluate impact of his cardiovascular status on his lower extremities. Given his obesity and abnormal liver functions hepatitis panel was checked and is negative for viral hepatitis. Culture to show evidence of MSSA as well as strep and cefazolin 2 g IV piggyback hours as started. Continue local wound care with Silvadene and wraps and elevation. Continue with treatment for his volume overload. As he improves would be able to transition to oral antibiotic therapy at discharge. Status: Acute (2) H/O aortic valve replacement Status: Acute (3) Warfarin-induced coagulopathy Status: Acute (4) Obesity Status: Acute
[2016-08-01] MEDS: SILVER sulfADIAZINE Cream 400 GM 1 APPLIC APPLIC TOPICAL SCH (20:09)
[2016-08-01 20:46] LABS: Glucose,Whole Blood 139 mg/dL (75-99)
[2016-08-02] MEDS: HYDROcodone/APAP 5-325MG 1 EACH TAB PO PRN ×4 (05:30→23:54)
[2016-08-02] MEDS: GLIMEPIRIDE 1 MG TAB PO SCH (05:59)
[2016-08-02 06:02] LABS: Glucose,Whole Blood 96 mg/dL (75-99)
[2016-08-02 06:05] LABS: Anisocytosis Slight; Basophils % (A) 0 %; CH 30.2; CHCM 31.8; Eosinophils # (A) 0.3 k/uL (0-0.7); Eosinophils % (A) 4 %; HCT 34.7 % (39.0-53.0); HDW 3.08; HGB 10.9 gm/dL (13.0-17.5); Hypochromasia Slight; Luc # (Auto) 0.23; Luc % (Auto) 3; Lymphocytes # (A) 0.7 k/uL (1.0-4.8); Lymphocytes % (A) 10 %; MCH 30.2 pg (25.0-35.0); MCHC 31.6 g/dL (31.0-37.0); MCV 95.7 fL (80.0-100.0); Mean Platelet Volume 7.8; Monocytes # (A) 0.6 k/uL (0-1.0); Monocytes % (A) 8 %; Neutrophils # (A) 5.5 k/uL (1.3-7.7); Neutrophils % (A) 74 %; RBC 3.63 m/uL (4.30-5.90); RDW 16.7 % (11.5-15.5); WBC 7.4 k/uL (3.8-10.6)
[2016-08-02 06:12] LABS: INR 1.9 (<1.1); Prothrombin Time 17.9 sec (9.0-12.0)
[2016-08-02 06:18] LABS: ALT 30 U/L (21-72); AST 22 U/L (17-59); Alkaline Phosphatase 132 U/L (38-126); Anion Gap 12 mmol/L; Blood Urea Nitrogen 43 mg/dL (9-20); Calcium 9.7 mg/dL (8.4-10.2); Carbon Dioxide 31 mmol/L (22-30); Chloride 98 mmol/L (98-107); Glucose 105 mg/dL (74-99); Non-African American GFR(MDRD) >60 (>60 ml/min/1.73 sqM); Potassium 4.5 mmol/L (3.5-5.1); Sodium 141 mmol/L (137-145); Total Bilirubin 1.7 mg/dL (0.2-1.3); Total Protein 7.5 g/dL (6.3-8.2)
[2016-08-02 06:18] LABS: Glucose,Whole Blood 108 mg/dL (75-99)
[2016-08-02] MEDS: metFORMIN 500 MG TAB PO SCH (06:33)
[2016-08-02] MEDS: LEVOTHYROXINE 25 MCG TAB PO SCH (06:33)
--- NOTE | 2016-08-02 07:58 | XR ---
EXAMINATION TYPE: XR chest 2V DATE OF EXAM: 08/02/2016 7:01 AM COMPARISON: 07/30/2016 TECHNIQUE: PA and lateral views submitted. HISTORY: Shortness of breath FINDINGS: Diffuse bilateral airspace disease is noted. Heart is enlarged and there is postoperative change. Art hropathy of the shoulders noted. IMPRESSION: 1. Diffuse bilateral airspace disease is stable. Differential diagnosis includes venous congestion, o pportunistic infection, interstitial pneumonitis or atypical pneumonia.
[2016-08-02] MEDS: FUROSEMIDE 10 MG/ML 4 ML VIAL IV SCH ×2 (08:28→21:11)
[2016-08-02] MEDS: ceFAZolin 2 GM in SODIUM CHLORIDE 0.9% 100 ML IVPB SCH ×3 (08:28→23:54)
[2016-08-02] MEDS: ALLOPURINOL 300 MG TAB PO SCH (08:28)
[2016-08-02] MEDS: METOPROLOL TARTRATE 50 MG TAB PO SCH ×2 (08:29→21:11)
[2016-08-02] MEDS: LISINOPRIL 20 MG TAB PO SCH (08:29)
[2016-08-02] MEDS: ATORVASTATIN 20 MG TAB PO SCH (08:29)
[2016-08-02] MEDS: ASPIRIN 81 MG CHEW PO SCH (08:29)
[2016-08-02 11:47] LABS: Glucose,Whole Blood 124 mg/dL (75-99)
[2016-08-02] MEDS ORDERED: ENOXAPARIN 80 MG/0.8 ML SYRINGE SQ STA (14:52)
--- NOTE | 2016-08-02 14:57 | P.PN ---
Subjective Acute congestive heart failure exacerbation Patient is a 66-year-old male with known history of aortic valve replacement and history of cardiomyopathy who was admitted to [facility] with multiple medical problems including syncopal episode, worsening shortness of breath with evidence of acute exacerbation of congestive heart failure, bilateral lower extremity cellulitis with large ulcerations on bilateral pretibial areas. He was admitted to telemetry floor he was started on IV Lasix he was seen by cardiology and by infectious disease. Patient still having some shortness of breath and lower extremity edema. He has noted to have some weight gain. He reports no bowel movement for a couple of days. He denies any difficulty urinating. Denies any chest pain or shortness of breath. Objective - Vital Signs Vital signs: Vital Signs Temp 97 F L 08/02/16 08:28 Pulse 68 08/02/16 11:25 Resp 16 08/02/16 11:25 BP 124/69 08/02/16 11:25 Pulse Ox 92 L 08/02/16 11:25 Intake & Output 08/01/16 08/02/16 08/02/16 18:59 06:59 18:59 Intake Total 450 238 Output Total 400 1300 200 Balance -400 -850 38 Weight 133.7 kg Intake: Intake, IV Titration 100 Amount ceFAZolin 2 gm In Sodium 100 Chloride 0.9% 100 ml @ 100 mls/hr IVPB Q8HR [facility] Rx#:[id number] Oral 350 238 Output: Urine 400 1300 200 Other: Voiding Method Urinal Urinal Urinal # Voids 0 - Exam Head normocephalic Neck supple Lungs crackles at bases Heart regular rate and rhythm S1-S2, no rub or gallop Abdomen is soft nontender nondistended positive bowel sounds no hepatosplenomegaly Extremities legs are Van wrapped. 2+ edema. Neuro alert and orientated to 3 - Labs CBC & Chem 7: 08/02/16 05:52 08/02/16 05:52 Labs: Abnormal Lab Results - Last 24 Hours (Table) 08/01/16 08/01/16 08/02/16 Range/Units 16:49 20:09 05:52 RBC (4.30-5.90) m/uL Hgb (13.0-17.5) gm/dL Hct (39.0-53.0) % RDW (11.5-15.5) % Lymphocytes # (1.0-4.8) k/uL PT 17.9 H (9.0-12.0) sec Carbon Dioxide (22-30) mmol/L BUN (9-20) mg/dL Glucose (74-99) mg/dL POC Glucose (mg/dL) 102 H 139 H (75-99) mg/dL Total Bilirubin (0.2-1.3) mg/dL Alkaline Phosphatase (38-126) U/L 08/02/16 08/02/16 08/02/16 Range/Units 05:52 05:52 06:17 RBC 3.63 L (4.30-5.90) m/uL Hgb 10.9 L (13.0-17.5) gm/dL Hct 34.7 L (39.0-53.0) % RDW 16.7 H (11.5-15.5) % Lymphocytes # 0.7 L (1.0-4.8) k/uL PT (9.0-12.0) sec Carbon Dioxide 31 H (22-30) mmol/L BUN 43 H (9-20) mg/dL Glucose 105 H (74-99) mg/dL POC Glucose (mg/dL) 108 H (75-99) mg/dL Total Bilirubin 1.7 H (0.2-1.3) mg/dL Alkaline Phosphatase 132 H (38-126) U/L 08/02/16 Range/Units 11:45 RBC (4.30-5.90) m/uL Hgb (13.0-17.5) gm/dL Hct (39.0-53.0) % RDW (11.5-15.5) % Lymphocytes # (1.0-4.8) k/uL PT (9.0-12.0) sec Carbon Dioxide (22-30) mmol/L BUN (9-20) mg/dL Glucose (74-99) mg/dL POC Glucose (mg/dL) 124 H (75-99) mg/dL Total Bilirubin (0.2-1.3) mg/dL Alkaline Phosphatase (38-126) U/L Microbiology - Last 24 Hours (Table) 07/30/16 17:47 Gram Stain - Final Leg - Right Wound Culture - Final Staphylococcus aureus Strep pyogenes (grp a) Assessment and Plan Plan: #1 syncopal episode, patient described waiting for the bus on his porch when the bus came in he walked down the 3 steps off his porch and then he felt dizzy and fell to the ground the business development consultant came down to help him he regained consciousness momentarily this happened few days prior to admission. Carotid shows bilateral stenosis of the internal carotid arteries of 50-69%. Echo shows an EF of 50-55% with moderate to severe tricuspid regurgitation and severe pulmonary hypertension. #2 acute diastolic CHF exacerbation: Continue IV Lasix. Cardiology is following. #3 coagulopathy, resolved . INR 1.9. She will receive Coumadin 5 mg tonight. We'll give Lovenox 80 mg 1. Repeat PT/INR in a.m. #4 bilateral lower extremity cellulitis was large ulcers, infectious disease consultation was requested, maintained on IV cefazolin #5 underlying history of [id number] diabetes mellitus millimeters, will check hemoglobin A1c will continue was his home medications at this time #6 underlying history of gout, resume allopurinol #7 for GI prophylaxis we will use Pepcid, for DVT prophylaxis will continue with Coumadin, dose need to be adjusted
[2016-08-02] MEDS ORDERED: LACTULOSE 20 GM/30 ML CUP PO ONE (15:00)
--- NOTE | 2016-08-02 15:52 | P.PN ---
Subjective Principal diagnosis: Dyspnea This is a 66-year-old gentleman with known history of bicuspid aortic valve, status post aortic valve replacement, history of cardiomyopathy in the past atrial fibrillation, who presented to the hospital with ulcerations and edema in the lower extremities as well as associated dyspnea. Patient also had an episode of nonsustained ventricular tachycardia that was asymptomatic the day before yesterday. He was unaware of the arrhythmia. No further arrhythmias have been noted on the monitor. A repeat echocardiogram with Doppler study was performed this admission which revealed a normal left ventricular systolic function. The pressure today 120/80 with a heart rate of 68. Hemoglobin 10.9, platelet count 285, potassium 4.5, INR normal 1.9, BUN 43 , creatinine 1.2. Objective - Vital Signs Vital signs: Vital Signs Temp 97 F L 08/02/16 15:26 Pulse 68 08/02/16 15:26 Resp 18 08/02/16 15:26 BP 120/88 08/02/16 15:26 Pulse Ox 95 08/02/16 15:26 Intake & Output 08/01/16 08/02/16 08/02/16 18:59 06:59 18:59 Intake Total 450 238 Output Total 400 1300 200 Balance -400 -850 38 Weight 133.7 kg Intake: Intake, IV Titration 100 Amount ceFAZolin 2 gm In Sodium 100 Chloride 0.9% 100 ml @ 100 mls/hr IVPB Q8HR [facility] Rx#:[id number] Oral 350 238 Output: Urine 400 1300 200 Other: Voiding Method Urinal Urinal Urinal # Voids 0 - Exam PHYSICAL EXAMINATION: HEENT: Head is atraumatic, normocephalic. Pupils equal, round. Neck is supple. There is no elevated jugular venous pressure. HEART EXAMINATION: Heart S1 and S2 irregularly irregular, systolic murmur is CHEST EXAMINATION: Lungs reveal decreased air exchange ABDOMEN: Soft, obese, nontender. Bowel sounds are heard. No organomegaly noted. EXTREMITIES: 1+ peripheral pulses with 1-2+ evidence of peripheral edema and no calf tenderness noted. NEUROLOGIC patient is awake, alert and oriented -3. . - Labs CBC & Chem 7: 08/02/16 05:52 08/02/16 05:52 Labs: Abnormal Lab Results - Last 24 Hours (Table) 08/01/16 08/01/16 08/02/16 Range/Units 16:49 20:09 05:52 RBC (4.30-5.90) m/uL Hgb (13.0-17.5) gm/dL Hct (39.0-53.0) % RDW (11.5-15.5) % Lymphocytes # (1.0-4.8) k/uL PT 17.9 H (9.0-12.0) sec Carbon Dioxide (22-30) mmol/L BUN (9-20) mg/dL Glucose (74-99) mg/dL POC Glucose (mg/dL) 102 H 139 H (75-99) mg/dL Total Bilirubin (0.2-1.3) mg/dL Alkaline Phosphatase (38-126) U/L 08/02/16 08/02/16 08/02/16 Range/Units 05:52 05:52 06:17 RBC 3.63 L (4.30-5.90) m/uL Hgb 10.9 L (13.0-17.5) gm/dL Hct 34.7 L (39.0-53.0) % RDW 16.7 H (11.5-15.5) % Lymphocytes # 0.7 L (1.0-4.8) k/uL PT (9.0-12.0) sec Carbon Dioxide 31 H (22-30) mmol/L BUN 43 H (9-20) mg/dL Glucose 105 H (74-99) mg/dL POC Glucose (mg/dL) 108 H (75-99) mg/dL Total Bilirubin 1.7 H (0.2-1.3) mg/dL Alkaline Phosphatase 132 H (38-126) U/L 08/02/16 Range/Units 11:45 RBC (4.30-5.90) m/uL Hgb (13.0-17.5) gm/dL Hct (39.0-53.0) % RDW (11.5-15.5) % Lymphocytes # (1.0-4.8) k/uL PT (9.0-12.0) sec Carbon Dioxide (22-30) mmol/L BUN (9-20) mg/dL Glucose (74-99) mg/dL POC Glucose (mg/dL) 124 H (75-99) mg/dL Total Bilirubin (0.2-1.3) mg/dL Alkaline Phosphatase (38-126) U/L Microbiology - Last 24 Hours (Table) 07/30/16 17:47 Gram Stain - Final Leg - Right Wound Culture - Final Staphylococcus aureus Strep pyogenes (grp a) Assessment and Plan (1) HTN (hypertension) Status: Acute (2) Chronic a-fib Status: Acute (3) H/O aortic valve replacement Status: Acute (4) Lower extremity ulceration Status: Acute (5) Obesity Status: Acute (6) Diabetes Status: Acute (7) Hyperlipemia Status: Acute Plan: We will give the patient 5 mg of Coumadin today. Continue Lasix 40 mg IV twice a day, check lytes BUN and creatinine in the morning. DNP note has been reviewed, I agree with a documented findings and plan of care. Patient was seen and examined.
[2016-08-02 16:46] LABS: Glucose,Whole Blood 105 mg/dL (75-99)
[2016-08-02] MEDS: SILVER sulfADIAZINE Cream 400 GM 1 APPLIC APPLIC TOPICAL SCH ×2 (17:32→23:54)
[2016-08-02] MEDS ORDERED: WARFARIN 5 MG TAB PO ONE (18:00)
[2016-08-02 21:15] LABS: Glucose,Whole Blood 125 mg/dL (75-99)
[2016-08-03 05:47] LABS: Anisocytosis Slight; Basophils % (A) 1 %; CH 30.3; CHCM 31.6; Eosinophils # (A) 0.3 k/uL (0-0.7); Eosinophils % (A) 5 %; HCT 36.6 % (39.0-53.0); HDW 2.97; HGB 11.2 gm/dL (13.0-17.5); Hypochromasia Slight; Luc # (Auto) 0.31; Luc % (Auto) 4; Lymphocytes # (A) 0.8 k/uL (1.0-4.8); Lymphocytes % (A) 11 %; MCH 29.6 pg (25.0-35.0); MCHC 30.7 g/dL (31.0-37.0); MCV 96.6 fL (80.0-100.0); Macrocytosis Slight; Mean Platelet Volume 6.9; Monocytes # (A) 0.7 k/uL (0-1.0); Monocytes % (A) 10 %; Neutrophils # (A) 5.2 k/uL (1.3-7.7); Neutrophils % (A) 71 %; RBC 3.79 m/uL (4.30-5.90); RDW 16.6 % (11.5-15.5); WBC 7.4 k/uL (3.8-10.6); WBC (Perox) 7.26
[2016-08-03 05:58] LABS: INR 2.4 (<1.1); Prothrombin Time 23.4 sec (9.0-12.0)
[2016-08-03 06:33] LABS: ALT 31 U/L (21-72); AST 25 U/L (17-59); Alkaline Phosphatase 126 U/L (38-126); Anion Gap 15 mmol/L; Blood Urea Nitrogen 46 mg/dL (9-20); Calcium 9.8 mg/dL (8.4-10.2); Carbon Dioxide 27 mmol/L (22-30); Chloride 102 mmol/L (98-107); Glucose 107 mg/dL (74-99); Non-African American GFR(MDRD) >60 (>60 ml/min/1.73 sqM); Potassium 4.6 mmol/L (3.5-5.1); Sodium 144 mmol/L (137-145); Total Bilirubin 1.5 mg/dL (0.2-1.3); Total Protein 7.7 g/dL (6.3-8.2)
[2016-08-03 06:36] LABS: Glucose,Whole Blood 95 mg/dL (75-99)
[2016-08-03] MEDS: GLIMEPIRIDE 1 MG TAB PO SCH (06:45)
[2016-08-03] MEDS: LEVOTHYROXINE 25 MCG TAB PO SCH (06:46)
[2016-08-03] MEDS: metFORMIN 500 MG TAB PO SCH (06:46)
[2016-08-03] MEDS: HYDROcodone/APAP 5-325MG 1 EACH TAB PO PRN ×3 (06:50→18:20)
[2016-08-03] MEDS: FUROSEMIDE 10 MG/ML 4 ML VIAL IV SCH ×2 (08:41→22:23)
[2016-08-03] MEDS: ATORVASTATIN 20 MG TAB PO SCH (08:41)
[2016-08-03] MEDS: ceFAZolin 2 GM in SODIUM CHLORIDE 0.9% 100 ML IVPB SCH ×2 (08:41→15:59)
[2016-08-03] MEDS: ALLOPURINOL 300 MG TAB PO SCH (08:41)
[2016-08-03] MEDS: METOPROLOL TARTRATE 50 MG TAB PO SCH ×2 (08:42→22:23)
[2016-08-03] MEDS: LISINOPRIL 20 MG TAB PO SCH (08:42)
--- NOTE | 2016-08-03 10:03 | P.PN ---
Subjective Principal diagnosis: Acute congestive heart failure exacerbation Patient is a 66-year-old male with known history of aortic valve replacement and history of cardiomyopathy who was admitted to [facility] with multiple medical problems including syncopal episode, worsening shortness of breath with evidence of acute exacerbation of congestive heart failure, bilateral lower extremity cellulitis with large ulcerations on bilateral pretibial areas. He was admitted to telemetry floor he was started on IV Lasix he was seen by cardiology and by infectious disease. Today he is feeling somewhat better his shortness of breath has improved lower extremity swelling has improved he has dressing on bilateral lower extremities. He denies any chest pain no dizziness no nausea or vomiting no abdominal pain and no urinary symptoms. Objective - Vital Signs Vital signs: Vital Signs Temp 97.0 F L 08/03/16 04:00 Pulse 73 08/03/16 04:00 Resp 18 08/03/16 04:00 BP 141/86 08/03/16 04:00 Pulse Ox 92 L 08/03/16 04:00 Intake & Output 08/02/16 08/03/16 08/03/16 18:59 06:59 18:59 Intake Total 238 Output Total 925 1350 Balance -687 -1350 Weight 133.9 kg Intake: Oral 238 Output: Urine 925 1350 Other: Voiding Method Urinal # Voids 1 - Exam In general patient is alert and oriented 3 in no apparent distress HEENT head normocephalic and atraumatic Neck is supple no JVD no goiter no lymphadenopathy Chest exam reveals a scattered crackles in both lung [place] no wheezing Cardiac exam reveals irregular heart sounds no gallops no murmurs Abdomen is soft nontender no organomegaly Extremity exam reveals 3+ edema, with large ulcers on bilateral lower extremities no cyanosis or clubbing Skin exam reveals generalized purpura rash on upper and lower extremities - Labs CBC & Chem 7: 08/03/16 05:31 08/03/16 05:31 Labs: Abnormal Lab Results - Last 24 Hours (Table) 08/02/16 08/02/16 08/02/16 Range/Units 11:45 16:44 20:48 RBC (4.30-5.90) m/uL Hgb (13.0-17.5) gm/dL Hct (39.0-53.0) % MCHC (31.0-37.0) g/dL RDW (11.5-15.5) % Lymphocytes # (1.0-4.8) k/uL PT (9.0-12.0) sec BUN (9-20) mg/dL Glucose (74-99) mg/dL POC Glucose (mg/dL) 124 H 105 H 125 H (75-99) mg/dL Total Bilirubin (0.2-1.3) mg/dL 08/03/16 08/03/16 08/03/16 Range/Units 05:31 05:31 05:31 RBC 3.79 L (4.30-5.90) m/uL Hgb 11.2 L (13.0-17.5) gm/dL Hct 36.6 L (39.0-53.0) % MCHC 30.7 L (31.0-37.0) g/dL RDW 16.6 H (11.5-15.5) % Lymphocytes # 0.8 L (1.0-4.8) k/uL PT 23.4 H (9.0-12.0) sec BUN 46 H (9-20) mg/dL Glucose 107 H (74-99) mg/dL POC Glucose (mg/dL) (75-99) mg/dL Total Bilirubin 1.5 H (0.2-1.3) mg/dL Microbiology - Last 24 Hours (Table) 07/30/16 17:47 Gram Stain - Final Leg - Right Wound Culture - Final Staphylococcus aureus Strep pyogenes (grp a) Assessment and Plan Plan: #1 syncopal episode, patient described waiting for the bus on his porch when the bus came in he walked down the 3 steps off his porch and then he felt dizzy and fell to the ground the rodbuster came down to help him he regained consciousness momentarily this happened few days prior to admission. At this time will check echocardiogram and carotid Doppler. #2 worsening dyspnea, likely acute diastolic congestive heart failure exacerbation, echocardiogram was ordered and cardiology consult requested patient was started on IV Lasix #3 coagulopathy, resolved will resume on Coumadin today #4 bilateral lower extremity cellulitis was large ulcers, infectious disease consultation was requested, maintained on IV cefazolin #5 underlying history of [id number] diabetes mellitus millimeters, will check hemoglobin A1c will continue was his home medications at this time #6 underlying history of gout, resume allopurinol #7 bilateral lower extremity purpura likely related to Coumadin use will assess if patient qualifies for a different anticoagulant #8 for GI prophylaxis we will use Pepcid, for DVT prophylaxis will continue with Coumadin, dose need to be adjusted Will follow patient closely awaiting input from cardiology and infectious disease
[2016-08-03] MEDS: SILVER sulfADIAZINE Cream 400 GM 1 APPLIC APPLIC TOPICAL SCH ×2 (11:26→22:23)
[2016-08-03 11:45] LABS: Glucose,Whole Blood 113 mg/dL (75-99)
--- NOTE | 2016-08-03 12:56 | P.PN ---
Subjective Principal diagnosis: Dyspnea This is a 66-year-old gentleman with known history of bicuspid aortic valve, status post aortic valve replacement, history of cardiomyopathy in the past , atrial fibrillation, who presented to the hospital with ulcerations and edema in the lower extremities as well as associated dyspnea. A repeat echocardiogram with Doppler study was performed this admission which revealed a normal left ventricular systolic function. Blood pressure today 120/80 with a heart rate of 68. Hemoglobin 11.2, platelet count 275, potassium 4.6, INR normal 2.4, BUN 46, creatinine 1.1. Patient was seen and examined this morning , overall doing much better. Edema is improving. Breathing is improving. Objective - Vital Signs Vital signs: Vital Signs Temp 96.9 F L 08/03/16 12:00 Pulse 72 08/03/16 12:00 Resp 18 08/03/16 12:00 BP 134/81 08/03/16 12:00 Pulse Ox 92 L 08/03/16 12:00 Intake & Output 08/02/16 08/03/16 08/03/16 18:59 06:59 18:59 Intake Total 238 Output Total 925 1350 625 Balance -687 -1350 -625 Weight 133.9 kg 133.9 kg Intake: Oral 238 Output: Urine 925 1350 625 Other: Voiding Method Urinal # Voids 1 - Exam PHYSICAL EXAMINATION: HEENT: Head is atraumatic, normocephalic. Pupils equal, round. Neck is supple. There is no elevated jugular venous pressure. HEART EXAMINATION: Heart S1 and S2 irregularly irregular, systolic murmur is CHEST EXAMINATION: Lungs reveal improvement in air exchange bilaterally. ABDOMEN: Soft, obese, nontender. Bowel sounds are heard. No organomegaly noted. EXTREMITIES: 1+ peripheral pulses with 1+ evidence of peripheral edema and no calf tenderness noted. Evidence of bilateral ulcerations NEUROLOGIC patient is awake, alert and oriented -3. . - Labs CBC & Chem 7: 08/03/16 05:31 08/03/16 05:31 Labs: Abnormal Lab Results - Last 24 Hours (Table) 08/02/16 08/02/16 08/03/16 Range/Units 16:44 20:48 05:31 RBC (4.30-5.90) m/uL Hgb (13.0-17.5) gm/dL Hct (39.0-53.0) % MCHC (31.0-37.0) g/dL RDW (11.5-15.5) % Lymphocytes # (1.0-4.8) k/uL PT (9.0-12.0) sec BUN 46 H (9-20) mg/dL Glucose 107 H (74-99) mg/dL POC Glucose (mg/dL) 105 H 125 H (75-99) mg/dL Total Bilirubin 1.5 H (0.2-1.3) mg/dL 08/03/16 08/03/16 08/03/16 Range/Units 05:31 05:31 11:44 RBC 3.79 L (4.30-5.90) m/uL Hgb 11.2 L (13.0-17.5) gm/dL Hct 36.6 L (39.0-53.0) % MCHC 30.7 L (31.0-37.0) g/dL RDW 16.6 H (11.5-15.5) % Lymphocytes # 0.8 L (1.0-4.8) k/uL PT 23.4 H (9.0-12.0) sec BUN (9-20) mg/dL Glucose (74-99) mg/dL POC Glucose (mg/dL) 113 H (75-99) mg/dL Total Bilirubin (0.2-1.3) mg/dL Microbiology - Last 24 Hours (Table) 07/30/16 17:47 Gram Stain - Final Leg - Right Wound Culture - Final Staphylococcus aureus Strep pyogenes (grp a) Assessment and Plan (1) HTN (hypertension) Status: Acute (2) Chronic a-fib Status: Acute (3) H/O aortic valve replacement Status: Acute (4) Lower extremity ulceration Status: Acute (5) Obesity Status: Acute (6) Diabetes Status: Acute (7) Hyperlipemia Status: Acute Plan: Coumadin will be discontinued and patient will be initiated on Xarelto 20 mg daily. We will continue current dose of IV Lasix. Check lytes BUN and creatinine in the morning. DNP note has been reviewed, I agree with a documented findings and plan of care. Patient was seen and examined.
[2016-08-03 16:45] LABS: Glucose,Whole Blood 124 mg/dL (75-99)
[2016-08-03] MEDS ORDERED: RIVAROXABAN 10 MG TAB PO SCH (17:30)
[2016-08-03] MEDS ORDERED: WARFARIN 2.5 MG TAB PO ONE (18:00)
--- NOTE | 2016-08-03 19:56 | P.PN ---
Subjective Principal diagnosis: syncope with lower extremity edema 66-year-old male who is somewhat of a poor historian presents to the physician's office with a complaint of an episode of syncope and increasing weakness. The patient apparently has been ill over the last year with increasing difficulties with fatigue and worsening exercise tolerance. He developed increasing lower extremity edema and ulcerations. He was caring for them with local products at home including baby powder. This was not working and the ulcerations were continuing to increase in number and size. Not until he had the syncopal event at his home where he bruised his left arm that he finally seek care. It appears his 2 brothers helped him seek care. He lives in a home with his 90-year-old mother. The 2 other brothers do help with the overall care such that they do the shopping and help with the cooking. The patient apparently has been medically disabled since his mid 50s. Relates to feeling somewhat worse today to the onset of a rash on his legs that is burning and uncomfortable. Lower extremity edema is slightly improved. He is less short of breath and has been eating well. Relates to good urinary output. Objective - Vital Signs Vital signs: Vital Signs Temp 96.0 F L 08/03/16 16:00 Pulse 69 08/03/16 16:00 Resp 18 08/03/16 16:00 BP 126/79 08/03/16 16:00 Pulse Ox 91 L 08/03/16 16:00 Intake & Output 08/03/16 08/03/16 08/04/16 06:59 18:59 06:59 Intake Total 400 Output Total 1350 975 Balance -1350 -575 Weight 133.9 kg 133.9 kg Intake: Oral 400 Output: Urine 1350 975 Other: # Voids 1 - Exam Obese 66-year-old male seems to be comfortable sitting upright on the bedside. HEENT: Anicteric conjunctiva are pink and moist nasal mucosa grossly intact without significant lesions, there is no thrush. Poor dentition Neck: The neck is supple without significant lymphadenopathy or thyromegaly. Lungs: There is symmetrical air entry, few basilar crackles scattered wheezes without zeus bronchial sounds or egophony being noted Heart: Irregular with an audible S1 and S2. Soft S4 2/6 systolic murmur left sternal border that radiates to the carotid PMI is nondisplaced Abdomen: Obese, Positive bowel sounds soft and nontender without palpable masses or organomegaly. There was no guarding or rebound. Extremities: The upper extremities show evidence of the bruising to the left arm proximal to the elbow, there is evidence of muscular wasting. The lower extremities have evidence of just trace edema at this time. Skin patient is evidence of the multiple full-thickness ulcerations on the bilateral lower extremities with eschar at the base. He does have a few lesions on the abdominal wall on his pannus. The bruises left arm is without any ulceration. Although does have evidence of some rash-like changes of the bilateral upper extremities and he is not clear how long that has been present. The lower extremity ulcerations have been present for at least a year, improving with the Silvadene wrap. However now has evidence of the purpuric rash in the lower extremities from the knee distally. Neuro: Awake alert oriented to person place and time. Follows simple commands. Appears to have a limited IQ - Labs CBC & Chem 7: 08/03/16 05:31 08/03/16 05:31 Labs: Abnormal Lab Results - Last 24 Hours (Table) 08/02/16 08/03/16 08/03/16 Range/Units 20:48 05:31 05:31 RBC 3.79 L (4.30-5.90) m/uL Hgb 11.2 L (13.0-17.5) gm/dL Hct 36.6 L (39.0-53.0) % MCHC 30.7 L (31.0-37.0) g/dL RDW 16.6 H (11.5-15.5) % Lymphocytes # 0.8 L (1.0-4.8) k/uL PT (9.0-12.0) sec BUN 46 H (9-20) mg/dL Glucose 107 H (74-99) mg/dL POC Glucose (mg/dL) 125 H (75-99) mg/dL Total Bilirubin 1.5 H (0.2-1.3) mg/dL 08/03/16 08/03/16 08/03/16 Range/Units 05:31 11:44 16:41 RBC (4.30-5.90) m/uL Hgb (13.0-17.5) gm/dL Hct (39.0-53.0) % MCHC (31.0-37.0) g/dL RDW (11.5-15.5) % Lymphocytes # (1.0-4.8) k/uL PT 23.4 H (9.0-12.0) sec BUN (9-20) mg/dL Glucose (74-99) mg/dL POC Glucose (mg/dL) 113 H 124 H (75-99) mg/dL Total Bilirubin (0.2-1.3) mg/dL Laboratory Results WBC 7.4 k/uL (3.8-10.6) 08/03/16 05:31 RBC 3.79 m/uL (4.30-5.90) L 08/03/16 05:31 Hgb 11.2 gm/dL (13.0-17.5) L 08/03/16 05:31 Hct 36.6 % (39.0-53.0) L 08/03/16 05:31 MCV 96.6 fL (80.0-100.0) 08/03/16 05:31 MCH 29.6 pg (25.0-35.0) 08/03/16 05:31 MCHC 30.7 g/dL (31.0-37.0) L 08/03/16 05:31 RDW 16.6 % (11.5-15.5) H 08/03/16 05:31 Plt Count 275 k/uL (150-450) 08/03/16 05:31 Neutrophils % 71 % 08/03/16 05:31 Lymphocytes % 11 % 08/03/16 05:31 Monocytes % 10 % 08/03/16 05:31 Eosinophils % 5 % 08/03/16 05:31 Basophils % 1 % 08/03/16 05:31 Neutrophils # 5.2 k/uL (1.3-7.7) 08/03/16 05:31 Lymphocytes # 0.8 k/uL (1.0-4.8) L 08/03/16 05:31 Monocytes # 0.7 k/uL (0-1.0) 08/03/16 05:31 Eosinophils # 0.3 k/uL (0-0.7) 08/03/16 05:31 Basophils # 0.0 k/uL (0-0.2) 08/03/16 05:31 Hypochromasia Slight 08/03/16 05:31 Anisocytosis Slight 08/03/16 05:31 Macrocytosis Slight 08/03/16 05:31 ESR 50 mm/hr (0-15) H 07/31/16 05:31 PT 23.4 sec (9.0-12.0) H 08/03/16 05:31 INR 2.4 (<1.1) 08/03/16 05:31 Sodium 144 mmol/L (137-145) 08/03/16 05:31 Potassium 4.6 mmol/L (3.5-5.1) 08/03/16 05:31 Chloride 102 mmol/L (98-107) 08/03/16 05:31 Carbon Dioxide 27 mmol/L (22-30) 08/03/16 05:31 Anion Gap 15 mmol/L 08/03/16 05:31 BUN 46 mg/dL (9-20) H 08/03/16 05:31 Creatinine 1.10 mg/dL (0.66-1.25) 08/03/16 05:31 Est GFR (MDRD) Af Amer >60 (>60 ml/min/1.73 sqM) 08/03/16 05:31 Est GFR (MDRD) Non-Af >60 (>60 ml/min/1.73 sqM) 08/03/16 05:31 Glucose 107 mg/dL (74-99) H 08/03/16 05:31 POC Glucose (mg/dL) 124 mg/dL (75-99) H 08/03/16 16:41 POC Glu Tow Motor Driver HE Malinda Conner 08/03/16 16:[address] Glu mg/dL 117 mg/dL 07/30/16 13:50 Hemoglobin A1c 5.7 % (4.2-6.1) 07/30/16 13:50 Uric Acid 3.8 mg/dL (3.5-8.5) 07/30/16 12:44 Calcium 9.8 mg/dL (8.4-10.2) 08/03/16 05:31 Magnesium 1.8 mg/dL (1.6-2.3) 08/01/16 06:12 Total Bilirubin 1.5 mg/dL (0.2-1.3) H 08/03/16 05:31 AST 25 U/L (17-59) 08/03/16 05:31 ALT 31 U/L (21-72) 08/03/16 05:31 Alkaline Phosphatase 126 U/L (38-126) 08/03/16 05:31 C-Reactive Protein 12.9 mg/L (<10.0) H 07/31/16 05:31 NT-Pro-B Natriuret Pep 5800 pg/mL 07/30/16 12:44 Total Protein 7.7 g/dL (6.3-8.2) 08/03/16 05:31 Albumin 4.0 g/dL (3.5-5.0) 08/03/16 05:31 Prealbumin 12 mg/dL (18-36) L 07/31/16 05:31 TSH 4.720 mIU/L (0.465-4.680) H 07/30/16 12:44 Hepatitis A IgM Ab NEGATIVE 07/31/16 05:31 Hep Bs Antigen Negative 07/31/16 05:31 Hep B Core IgM Ab NEGATIVE 07/31/16 05:31 Hep C IgG Ab Negative (Negative) 07/31/16 05:31 Microbiology 07/30/16 17:47 Leg - Right Gram Stain - Final 07/30/16 17:47 Leg - Right Wound Culture - Final Staphylococcus aureus Strep pyogenes (grp a) Assessment and Plan (1) Lower extremity ulceration Narrative/Plan: 66-year-old male who has a history of significant underlying medical issues including aortic valve replacement and a recent bout of syncope. He relates to about a one-year history of ulcerations to his bilateral lower extremities have been worsening over time. Is doing some in-home care such as local creams and baby powder which has not helped the ulcers improved. Because of the syncopal event in his worsening functional status he was brought to Hospital with concerns to worsening of congestive heart failure. Echocardiogram has been ordered as has carotid Dopplers. These are pending at this time. The patient is evidence of chronic lower extremity ulcerations and arterial Dopplers are in process and awaited but the venous studies show notice any deep venous thrombosis In the meantime cultures obtained and local wound care with Silvadene and a light wrap will be applied. The patient was concerned that he could be at risk for losing his legs. We discussed at the moment that workup is needed but he does not have evidence of gangrenous changes necessitating amputation at this time. His diabetes appears to be well controlled Evaluation of his cardiovascular status is in process to evaluate impact of his cardiovascular status on his lower extremities. Given his obesity and abnormal liver functions hepatitis panel was checked and is negative for viral hepatitis. Culture did show evidence of MSSA as well as strep and cefazolin 2 g IV piggyback every 8 hours in use. Continue local wound care with Silvadene and wraps and elevation. Continue with treatment for his volume overload. Since the ulceration is improving alter cefazolin to cefuroxime 500 mg every 12 hours. The current skin eruption was thought to be due to his Coumadin therapy. It is somewhat limited to the lower extremities. Drug eruption not completely ruled out. Ancef was discontinued and monitored. Status: Acute (2) H/O aortic valve replacement Status: Acute (3) Warfarin-induced coagulopathy Status: Acute (4) Obesity Status: Acute
[2016-08-03 21:09] LABS: Glucose,Whole Blood 162 mg/dL (75-99)
[2016-08-03] MEDS: CEFUROXIME 250 MG TAB PO SCH (22:39)
[2016-08-04] MEDS: HYDROcodone/APAP 5-325MG 1 EACH TAB PO PRN ×4 (03:07→22:01)
[2016-08-04 06:27] LABS: Anisocytosis Slight; Basophils % (A) 0 %; CH 30.2; CHCM 31.3; Eosinophils # (A) 0.2 k/uL (0-0.7); Eosinophils % (A) 3 %; HCT 34.1 % (39.0-53.0); HDW 3.01; HGB 10.7 gm/dL (13.0-17.5); Hypochromasia Slight; Luc # (Auto) 0.24; Luc % (Auto) 3; Lymphocytes # (A) 0.6 k/uL (1.0-4.8); Lymphocytes % (A) 8 %; MCH 30.6 pg (25.0-35.0); MCHC 31.4 g/dL (31.0-37.0); MCV 97.5 fL (80.0-100.0); Macrocytosis Slight; Mean Platelet Volume 7.9; Monocytes # (A) 0.7 k/uL (0-1.0); Monocytes % (A) 9 %; Neutrophils # (A) 5.6 k/uL (1.3-7.7); Neutrophils % (A) 76 %; RDW 16.8 % (11.5-15.5); WBC 7.4 k/uL (3.8-10.6); WBC (Perox) 7.61
[2016-08-04 06:42] LABS: ALT 16 U/L (21-72); AST 23 U/L (17-59); Alkaline Phosphatase 128 U/L (38-126); Anion Gap 14 mmol/L; Blood Urea Nitrogen 43 mg/dL (9-20); Calcium 9.5 mg/dL (8.4-10.2); Carbon Dioxide 31 mmol/L (22-30); Chloride 98 mmol/L (98-107); Glucose 119 mg/dL (74-99); Non-African American GFR(MDRD) >60 (>60 ml/min/1.73 sqM); Potassium 4.1 mmol/L (3.5-5.1); Sodium 143 mmol/L (137-145); Total Bilirubin 1.7 mg/dL (0.2-1.3); Total Protein 7.6 g/dL (6.3-8.2)
[2016-08-04] MEDS: GLIMEPIRIDE 1 MG TAB PO SCH (06:48)
[2016-08-04] MEDS: LEVOTHYROXINE 25 MCG TAB PO SCH (06:48)
[2016-08-04] MEDS: metFORMIN 500 MG TAB PO SCH (06:48)
[2016-08-04 07:22] LABS: INR 4.9 (<1.1); Prothrombin Time 48.7 sec (9.0-12.0)
[2016-08-04] MEDS: CEFUROXIME 250 MG TAB PO SCH ×2 (08:44→22:01)
[2016-08-04] MEDS: LISINOPRIL 20 MG TAB PO SCH (08:44)
[2016-08-04] MEDS: ALLOPURINOL 300 MG TAB PO SCH (08:44)
[2016-08-04] MEDS: METOPROLOL TARTRATE 50 MG TAB PO SCH ×2 (08:44→22:01)
[2016-08-04] MEDS: ATORVASTATIN 20 MG TAB PO SCH (08:45)
[2016-08-04] MEDS: FUROSEMIDE 10 MG/ML 4 ML VIAL IV SCH ×2 (08:45→22:01)
[2016-08-04 12:17] LABS: Glucose,Whole Blood 85 mg/dL (75-99)
--- NOTE | 2016-08-04 13:17 | P.PN ---
Subjective Patient is complaining of itching in both lower extremities Objective - Vital Signs Vital signs: Vital Signs Temp 97.9 F 08/04/16 12:00 Pulse 69 08/04/16 12:00 Resp 18 08/04/16 12:00 BP 100/69 08/04/16 12:00 Pulse Ox 94 L 08/04/16 12:00 Intake & Output 08/03/16 08/04/16 08/04/16 18:59 06:59 18:59 Intake Total 400 300 440 Output Total 975 1800 Balance -575 300 -1360 Weight 133.9 kg 134.1 kg Intake: Oral 400 300 440 Output: Urine 975 1800 Other: Voiding Method Urinal Urinal # Voids 1 - Exam General: The patient is awake and alert, in no distress Eye: there is normal conjunctiva bilaterally. Neck: The neck is supple, there is no JVD. Cardiovascular: Normal S1-S2, no S3-S4, no murmurs. Respiratory: Lungs clear to auscultation bilaterally Gastrointestinal: Abdomen is soft, nontender Musculoskeletal: Lower extremities wrapped with Van wrap to [id number] Neurological:. Speech is normal. Skin: There is redness and evidence of poor involving the skin on the lower extremity above the knee above the Van wrap up to the midthigh - Labs CBC & Chem 7: 08/04/16 05:33 08/04/16 05:33 Labs: Abnormal Lab Results - Last 24 Hours (Table) 08/03/16 08/03/16 08/04/16 Range/Units 16:41 20:43 05:33 RBC 3.50 L (4.30-5.90) m/uL Hgb 10.7 L (13.0-17.5) gm/dL Hct 34.1 L (39.0-53.0) % RDW 16.8 H (11.5-15.5) % Lymphocytes # 0.6 L (1.0-4.8) k/uL PT (9.0-12.0) sec Carbon Dioxide (22-30) mmol/L BUN (9-20) mg/dL Glucose (74-99) mg/dL POC Glucose (mg/dL) 124 H 162 H (75-99) mg/dL Total Bilirubin (0.2-1.3) mg/dL ALT (21-72) U/L Alkaline Phosphatase (38-126) U/L 08/04/16 08/04/16 Range/Units 05:33 07:02 RBC (4.30-5.90) m/uL Hgb (13.0-17.5) gm/dL Hct (39.0-53.0) % RDW (11.5-15.5) % Lymphocytes # (1.0-4.8) k/uL PT 48.7 H (9.0-12.0) sec Carbon Dioxide 31 H (22-30) mmol/L BUN 43 H (9-20) mg/dL Glucose 119 H (74-99) mg/dL POC Glucose (mg/dL) (75-99) mg/dL Total Bilirubin 1.7 H (0.2-1.3) mg/dL ALT 16 L (21-72) U/L Alkaline Phosphatase 128 H (38-126) U/L Assessment and Plan Plan: #3 worsening dyspnea, secondary to acute diastolic congestive heart failure exacerbation, echocardiogram was ordered and cardiology consult requested patient was started on IV Lasix #3 coagulopathy, Coumadin was discontinued. Patient will be restarted on Rivaroxaban and when INR is below 2 #4 bilateral lower extremity cellulitis was large ulcers, infectious disease consultation was requested, antibiotic switched to oral. #5 underlying history of [id number] diabetes mellitus millimeters, continue with his home medications at this time #6 underlying history of gout, I would discontinue allopurinol for now and check uric acid level #7 bilateral lower extremity purpura likely related to Coumadin and possibly allopurinol use: May use Benadryl for itching as needed
[2016-08-04] MEDS: SILVER sulfADIAZINE Cream 400 GM 1 APPLIC APPLIC TOPICAL SCH ×2 (14:07→22:01)
[2016-08-04 17:13] LABS: Glucose,Whole Blood 94 mg/dL (75-99)
[2016-08-04 21:05] LABS: Glucose,Whole Blood 102 mg/dL (75-99)
[2016-08-05 06:19] LABS: Anisocytosis Slight; Basophils % (A) 1 %; CH 30.2; CHCM 30.7; Eosinophils # (A) 0.2 k/uL (0-0.7); Eosinophils % (A) 3 %; HCT 37.8 % (39.0-53.0); HDW 2.89; HGB 11.3 gm/dL (13.0-17.5); Hypochromasia Moderate; Luc # (Auto) 0.23; Luc % (Auto) 3; Lymphocytes # (A) 0.6 k/uL (1.0-4.8); Lymphocytes % (A) 9 %; MCH 29.5 pg (25.0-35.0); MCHC 29.8 g/dL (31.0-37.0); MCV 99.1 fL (80.0-100.0); Macrocytosis Slight; Mean Platelet Volume 7.3; Monocytes # (A) 0.6 k/uL (0-1.0); Monocytes % (A) 9 %; Neutrophils # (A) 5.2 k/uL (1.3-7.7); Neutrophils % (A) 75 %; RBC 3.82 m/uL (4.30-5.90); RDW 16.7 % (11.5-15.5); WBC 6.9 k/uL (3.8-10.6)
[2016-08-05 06:26] LABS: Glucose,Whole Blood 87 mg/dL (75-99)
[2016-08-05 06:29] LABS: ALT 26 U/L (21-72); AST 27 U/L (17-59); Alkaline Phosphatase 135 U/L (38-126); Anion Gap 10 mmol/L; Blood Urea Nitrogen 44 mg/dL (9-20); Calcium 9.9 mg/dL (8.4-10.2); Carbon Dioxide 31 mmol/L (22-30); Chloride 101 mmol/L (98-107); Glucose 87 mg/dL (74-99); Non-African American GFR(MDRD) >60 (>60 ml/min/1.73 sqM); Potassium 4.9 mmol/L (3.5-5.1); Sodium 142 mmol/L (137-145); Total Bilirubin 1.6 mg/dL (0.2-1.3); Total Protein 7.9 g/dL (6.3-8.2); Uric Acid 3.9 mg/dL (3.5-8.5)
[2016-08-05 06:30] LABS: INR 2.7 (<1.1); Prothrombin Time 25.9 sec (9.0-12.0)
[2016-08-05] MEDS: GLIMEPIRIDE 1 MG TAB PO SCH (06:37)
[2016-08-05] MEDS: LEVOTHYROXINE 25 MCG TAB PO SCH (06:37)
[2016-08-05] MEDS: metFORMIN 500 MG TAB PO SCH (06:37)
[2016-08-05] MEDS: HYDROcodone/APAP 5-325MG 1 EACH TAB PO PRN ×3 (06:43→19:08)
[2016-08-05] MEDS: FUROSEMIDE 10 MG/ML 4 ML VIAL IV SCH (09:27)
[2016-08-05] MEDS: LISINOPRIL 20 MG TAB PO SCH (09:27)
[2016-08-05] MEDS: CEFUROXIME 250 MG TAB PO SCH ×2 (09:27→21:27)
[2016-08-05] MEDS: ATORVASTATIN 20 MG TAB PO SCH (09:28)
[2016-08-05] MEDS: METOPROLOL TARTRATE 50 MG TAB PO SCH ×2 (09:28→21:27)
[2016-08-05 11:47] LABS: Glucose,Whole Blood 96 mg/dL (75-99)
[2016-08-05] MEDS: diphenhydrAMINE 25 MG CAP PO PRN ×2 (12:38→21:31)
--- NOTE | 2016-08-05 13:03 | P.PN ---
Subjective Patient's anasarca with no significant improvement. Negative fluid balance within the past 24 hours. Objective - Vital Signs Vital signs: Vital Signs Temp 97.8 F 08/05/16 08:00 Pulse 82 08/05/16 08:00 Resp 18 08/05/16 08:00 BP 106/62 08/05/16 08:00 Pulse Ox 93 L 08/05/16 08:00 Intake & Output 08/04/16 08/05/16 08/05/16 18:59 06:59 18:59 Intake Total 680 240 Output Total 1999 Balance -1320 240 Weight 134.8 kg Intake: Oral 680 240 Output: Urine 1999 Other: Voiding Method Urinal Urinal Urinal # Voids 0 - Exam General: The patient is awake and alert, in no distress Eye: there is normal conjunctiva bilaterally. Neck: The neck is supple, there is no JVD. Cardiovascular: Normal S1-S2, no S3-S4, no murmurs. Respiratory: Lungs clear to auscultation bilaterally Gastrointestinal: Abdomen is soft, nontender Musculoskeletal: Lower extremities wrapped with Van wrap to [id number]. There is evidence of anasarca up to the hip bilaterally Neurological:. Speech is normal. Skin: There is redness and evidence of poor involving the skin on the lower extremity above the knee above the Van wrap up to the midthigh - Labs CBC & Chem 7: 08/05/16 05:39 08/05/16 05:39 Labs: Abnormal Lab Results - Last 24 Hours (Table) 08/04/16 08/05/16 08/05/16 Range/Units 20:56 05:39 05:39 RBC 3.82 L (4.30-5.90) m/uL Hgb 11.3 L (13.0-17.5) gm/dL Hct 37.8 L (39.0-53.0) % MCHC 29.8 L (31.0-37.0) g/dL RDW 16.7 H (11.5-15.5) % Lymphocytes # 0.6 L (1.0-4.8) k/uL PT 25.9 H (9.0-12.0) sec Carbon Dioxide (22-30) mmol/L BUN (9-20) mg/dL POC Glucose (mg/dL) 102 H (75-99) mg/dL Total Bilirubin (0.2-1.3) mg/dL Alkaline Phosphatase (38-126) U/L 08/05/16 Range/Units 05:39 RBC (4.30-5.90) m/uL Hgb (13.0-17.5) gm/dL Hct (39.0-53.0) % MCHC (31.0-37.0) g/dL RDW (11.5-15.5) % Lymphocytes # (1.0-4.8) k/uL PT (9.0-12.0) sec Carbon Dioxide 31 H (22-30) mmol/L BUN 44 H (9-20) mg/dL POC Glucose (mg/dL) (75-99) mg/dL Total Bilirubin 1.6 H (0.2-1.3) mg/dL Alkaline Phosphatase 135 H (38-126) U/L Assessment and Plan Plan: #1 worsening dyspnea, secondary to acute diastolic congestive heart failure exacerbation, echocardiogram showed preserved ejection fraction of 50-55%. Elevated right ventricular and diastolic pressure with diastolic dysfunction #2 severe pulmonary hypertension/cor pulmonale with diffuse anasarca: #3 coagulopathy, Coumadin was discontinued. Patient will be restarted on Rivaroxaban and when INR is below 2 #4 bilateral lower extremity cellulitis was large ulcers, infectious disease consultation was requested, antibiotic switched to oral. Doppler ultrasound negative for DVT #5 underlying history of [id number] diabetes mellitus millimeters, continue with his home medications at this time #6 underlying history of gout, I would discontinue allopurinol for now and check uric acid level #7 bilateral lower extremity purpura likely related to Coumadin and possibly allopurinol use: May use Benadryl for itching as needed Plan for today: Switch diuresis regimen to Lasix drip at 5 mg per hour. Check postvoid residual to ensure patient is emptying his bladder. Continue to monitor I's and O's closely. Repeat lab work in the morning.
--- NOTE | 2016-08-05 14:09 | P.PN ---
Subjective Principal diagnosis: Dyspnea This is a 66-year-old gentleman with known history of bicuspid aortic valve, status post aortic valve replacement, history of cardiomyopathy in the past , atrial fibrillation, who presented to the hospital with ulcerations and edema in the lower extremities as well as associated dyspnea. A repeat echocardiogram with Doppler study was performed this admission which revealed a normal left ventricular systolic function. Blood pressure today 120/80 with a heart rate of 68. Hemoglobin 11.3, platelet [id number], potassium 4.9, INR normal 2.7, BUN 44, creatinine 1.0. Patient was seen and examined this morning , overall doing much better. Edema is improving. Breathing is improving. Objective - Vital Signs Vital signs: Vital Signs Temp 97.8 F 08/05/16 08:00 Pulse 82 08/05/16 08:00 Resp 18 08/05/16 08:00 BP 106/62 08/05/16 08:00 Pulse Ox 93 L 08/05/16 08:00 Intake & Output 08/04/16 08/05/16 08/05/16 18:59 06:59 18:59 Intake Total 680 240 Output Total 1999 Balance -1320 240 Weight 134.8 kg Intake: Oral 680 240 Output: Urine 1999 Other: Voiding Method Urinal Urinal Urinal # Voids 0 - Exam PHYSICAL EXAMINATION: HEENT: Head is atraumatic, normocephalic. Pupils equal, round. Neck is supple. There is no elevated jugular venous pressure. HEART EXAMINATION: Heart S1 and S2 irregularly irregular, systolic murmur is CHEST EXAMINATION: Lungs reveal improvement in air exchange bilaterally. ABDOMEN: Soft, obese, nontender. Bowel sounds are heard. No organomegaly noted. EXTREMITIES: 1+ peripheral pulses with 1+ evidence of peripheral edema and no calf tenderness noted. Evidence of bilateral ulcerations NEUROLOGIC patient is awake, alert and oriented -3. . - Labs CBC & Chem 7: 08/05/16 05:39 08/05/16 05:39 Labs: Abnormal Lab Results - Last 24 Hours (Table) 08/04/16 08/05/16 08/05/16 Range/Units 20:56 05:39 05:39 RBC 3.82 L (4.30-5.90) m/uL Hgb 11.3 L (13.0-17.5) gm/dL Hct 37.8 L (39.0-53.0) % MCHC 29.8 L (31.0-37.0) g/dL RDW 16.7 H (11.5-15.5) % Lymphocytes # 0.6 L (1.0-4.8) k/uL PT 25.9 H (9.0-12.0) sec Carbon Dioxide (22-30) mmol/L BUN (9-20) mg/dL POC Glucose (mg/dL) 102 H (75-99) mg/dL Total Bilirubin (0.2-1.3) mg/dL Alkaline Phosphatase (38-126) U/L 08/05/16 Range/Units 05:39 RBC (4.30-5.90) m/uL Hgb (13.0-17.5) gm/dL Hct (39.0-53.0) % MCHC (31.0-37.0) g/dL RDW (11.5-15.5) % Lymphocytes # (1.0-4.8) k/uL PT (9.0-12.0) sec Carbon Dioxide 31 H (22-30) mmol/L BUN 44 H (9-20) mg/dL POC Glucose (mg/dL) (75-99) mg/dL Total Bilirubin 1.6 H (0.2-1.3) mg/dL Alkaline Phosphatase 135 H (38-126) U/L Assessment and Plan (1) HTN (hypertension) Status: Acute (2) Chronic a-fib Status: Acute (3) H/O aortic valve replacement Status: Acute (4) Lower extremity ulceration Status: Acute (5) Obesity Status: Acute (6) Diabetes Status: Acute (7) Hyperlipemia Status: Acute Plan: Continue Lasix drip, continue to monitor intake and output along with daily weights. DNP note has been reviewed, I agree with a documented findings and plan of care. Patient was seen and examined.
[2016-08-05] MEDS: INSULIN LISPRO (humaLOG) 300 UNIT/3 ML VIAL SQ SCH ×2 (16:58→21:26)
[2016-08-05 17:02] LABS: Glucose,Whole Blood 94 mg/dL (75-99)
[2016-08-05] MEDS: FUROSEMIDE 250 MG in SODIUM CHLORIDE 0.9% 225 ML IVP SCH (17:05)
[2016-08-05] MEDS: SILVER sulfADIAZINE Cream 400 GM 1 APPLIC APPLIC TOPICAL SCH ×2 (17:05→22:50)
[2016-08-05 21:34] LABS: Glucose,Whole Blood 85 mg/dL (75-99)
[2016-08-06] MEDS: HYDROcodone/APAP 5-325MG 1 EACH TAB PO PRN ×3 (03:28→19:04)
[2016-08-06 06:17] LABS: Glucose,Whole Blood 91 mg/dL (75-99)
[2016-08-06] MEDS: INSULIN LISPRO (humaLOG) 300 UNIT/3 ML VIAL SQ SCH ×4 (06:18→20:55)
[2016-08-06] MEDS: GLIMEPIRIDE 1 MG TAB PO SCH (06:18)
[2016-08-06] MEDS: diphenhydrAMINE 25 MG CAP PO PRN ×3 (06:20→20:54)
[2016-08-06] MEDS: LEVOTHYROXINE 25 MCG TAB PO SCH (06:21)
[2016-08-06 06:22] LABS: Anisocytosis Slight; Basophils % (A) 1 %; CH 30.2; CHCM 31.3; Eosinophils # (A) 0.2 k/uL (0-0.7); Eosinophils % (A) 3 %; HCT 35.8 % (39.0-53.0); HDW 2.89; HGB 10.9 gm/dL (13.0-17.5); Hypochromasia Slight; Luc # (Auto) 0.29; Luc % (Auto) 4; Lymphocytes # (A) 0.8 k/uL (1.0-4.8); Lymphocytes % (A) 10 %; MCH 29.6 pg (25.0-35.0); MCHC 30.4 g/dL (31.0-37.0); MCV 97.4 fL (80.0-100.0); Macrocytosis Slight; Monocytes # (A) 0.7 k/uL (0-1.0); Monocytes % (A) 9 %; Neutrophils # (A) 5.6 k/uL (1.3-7.7); Neutrophils % (A) 73 %; RBC 3.67 m/uL (4.30-5.90); RDW 16.6 % (11.5-15.5); WBC 7.7 k/uL (3.8-10.6); WBC (Perox) 7.85
[2016-08-06 06:23] LABS: ALT 28 U/L (21-72); AST 27 U/L (17-59); Alkaline Phosphatase 132 U/L (38-126); Anion Gap 12 mmol/L; Blood Urea Nitrogen 46 mg/dL (9-20); Calcium 9.7 mg/dL (8.4-10.2); Carbon Dioxide 31 mmol/L (22-30); Chloride 100 mmol/L (98-107); Glucose 87 mg/dL (74-99); Non-African American GFR(MDRD) >60 (>60 ml/min/1.73 sqM); Potassium 4.6 mmol/L (3.5-5.1); Sodium 143 mmol/L (137-145); Total Bilirubin 1.7 mg/dL (0.2-1.3); Total Protein 7.5 g/dL (6.3-8.2)
[2016-08-06] MEDS: ATORVASTATIN 20 MG TAB PO SCH (08:33)
[2016-08-06] MEDS: LISINOPRIL 20 MG TAB PO SCH (08:33)
[2016-08-06] MEDS: CEFUROXIME 250 MG TAB PO SCH ×2 (08:33→20:54)
[2016-08-06] MEDS: METOPROLOL TARTRATE 50 MG TAB PO SCH ×2 (08:33→20:55)
--- NOTE | 2016-08-06 09:23 | PN ---
This patient is admitted with congestive cardiac failure with bilateral leg edema and the skin rash and possibly cellulitis. The skin rash could be secondary to probably Coumadin. He is feeling better. He is not in any respiratory distress, but patient has not lost any significant amount of weight. Patient's respirations are not labored. Blood pressure is 100/69 mmHg. First and second heart sounds are normal. Lungs reveal a few scattered wheezes. Electrolytes are normal. Creatinine is 1.13. We will continue patient currently on IV Lasix. A chest x-ray done yesterday showed evidence of congestive cardiac failure.
[2016-08-06 10:06] LABS: Mis test requested (Blood) PT/INR
[2016-08-06] MEDS: FUROSEMIDE 250 MG in SODIUM CHLORIDE 0.9% 225 ML IVP SCH (11:50)
[2016-08-06 11:51] LABS: Glucose,Whole Blood 92 mg/dL (75-99)
--- NOTE | 2016-08-06 13:50 | P.PN ---
Subjective Acute congestive heart failure exacerbation Patient is a 66-year-old male with known history of aortic valve replacement and history of cardiomyopathy who was admitted to [facility] with multiple medical problems including syncopal episode, worsening shortness of breath with evidence of acute exacerbation of congestive heart failure, bilateral lower extremity cellulitis with large ulcerations on bilateral pretibial areas. He was admitted to telemetry floor he was started on IV Lasix he was seen by cardiology and by infectious disease. Patient does note some mild improvement in the lower extremity edema. He has been on IV Lasix drip. Denies any chest pain or shortness breath. Denies any nausea or vomiting. He has been having bowel movements. Denies any difficulty urinating. Objective - Vital Signs Vital signs: Vital Signs Temp 98.6 F 08/06/16 12:00 Pulse 77 08/06/16 12:00 Resp 18 08/06/16 12:00 BP 111/75 08/06/16 12:00 Pulse Ox 93 L 08/06/16 12:00 Intake & Output 08/05/16 08/06/16 08/06/16 18:59 06:59 18:59 Intake Total 250 65 128.75 Output Total 2933 600 Balance 250 -2868 -471.25 Weight 135.4 kg Intake: IV 10 10 35 Furosemide 250 mg In 35 Sodium Chloride 0.9% 225 ml @ 5 MG/HR 5 mls/hr IVP .Q24H [facility] Rx#:[id number] IV Flush 10 10 Intake, IV Titration 55 93.75 Amount Furosemide 250 mg In 55 93.75 Sodium Chloride 0.9% 225 ml @ 5 MG/HR 5 mls/hr IVP .Q24H [facility] Rx#:[id number] Oral 240 Output: Urine 2900 600 Post Void Residual 33 Other: Voiding Method Urinal Urinal Urinal - Exam Head normocephalic Neck supple Lungs crackles at bases Heart regular rate and rhythm S1-S2, no rub or gallop Abdomen is soft nontender nondistended positive bowel sounds no hepatosplenomegaly Extremities legs are Van wrapped. 2+ edema. Neuro alert and orientated to 3 - Labs CBC & Chem 7: 08/06/16 05:48 08/06/16 05:48 Labs: Abnormal Lab Results - Last 24 Hours (Table) 03/06/17 03/06/17 Range/Units 05:48 05:48 RBC 3.67 L (4.30-5.90) m/uL Hgb 10.9 L (13.0-17.5) gm/dL Hct 35.8 L (39.0-53.0) % MCHC 30.4 L (31.0-37.0) g/dL RDW 16.6 H (11.5-15.5) % Lymphocytes # 0.8 L (1.0-4.8) k/uL Carbon Dioxide 31 H (22-30) mmol/L BUN 46 H (9-20) mg/dL Total Bilirubin 1.7 H (0.2-1.3) mg/dL Alkaline Phosphatase 132 H (38-126) U/L Assessment and Plan Plan: #1 worsening dyspnea, secondary to acute diastolic congestive heart failure exacerbation, echocardiogram showed preserved ejection fraction of 50-55%. Elevated right ventricular and diastolic pressure with diastolic dysfunction. Patient currently on IV Lasix drip. Cardiology following. #2 severe pulmonary hypertension and cor pulmonale with diffuse anasarca: #3 coagulopathy, Coumadin was discontinued. Patient will be restarted on Rivaroxaban and when INR is below 2 #4 bilateral lower extremity cellulitis was large ulcers, infectious disease consultation was requested, antibiotic switched to oral. Doppler ultrasound negative for DVT . Currently on Ceftin. Encouraged patient to keep legs elevated #5 underlying history of [id number] diabetes mellitus millimeters, continue with his home medications at this time #6 underlying history of gout, I would discontinue allopurinol for now and check uric acid level #7 bilateral lower extremity purpura likely related to Coumadin and possibly allopurinol use: May use Benadryl for itching as needed
[2016-08-06] MEDS: SILVER sulfADIAZINE Cream 400 GM 1 APPLIC APPLIC TOPICAL SCH (15:00)
--- NOTE | 2016-08-06 15:20 | P.PN ---
Subjective Principal diagnosis: Dyspnea This is a 66-year-old gentleman with known history of bicuspid aortic valve, status post aortic valve replacement, history of cardiomyopathy in the past , atrial fibrillation, who presented to the hospital with ulcerations and edema in the lower extremities as well as associated dyspnea. A repeat echocardiogram with Doppler study was performed this admission which revealed a normal left ventricular systolic function. Blood pressure today 110/80 with a heart rate of 70. Hemoglobin 10.9, platelet count 297, potassium 4.6, INR normal 2.7, BUN 46, creatinine 1.0. Patient was seen and examined this morning , overall doing much better. Edema is improving. Breathing is improving. Objective - Vital Signs Vital signs: Vital Signs Temp 98.6 F 08/06/16 12:00 Pulse 77 08/06/16 12:00 Resp 18 08/06/16 12:00 BP 111/75 08/06/16 12:00 Pulse Ox 93 L 08/06/16 12:00 Intake & Output 08/05/16 08/06/16 08/06/16 18:59 06:59 18:59 Intake Total 250 65 128.75 Output Total 2933 1000 Balance 250 -2868 -871.25 Weight 135.4 kg Intake: IV 10 10 35 Furosemide 250 mg In 35 Sodium Chloride 0.9% 225 ml @ 5 MG/HR 5 mls/hr IVP .Q24H [facility] Rx#:[id number] IV Flush 10 10 Intake, IV Titration 55 93.75 Amount Furosemide 250 mg In 55 93.75 Sodium Chloride 0.9% 225 ml @ 5 MG/HR 5 mls/hr IVP .Q24H [facility] Rx#:[id number] Oral 240 Output: Urine 2900 1000 Post Void Residual 33 Other: Voiding Method Urinal Urinal Urinal - Exam PHYSICAL EXAMINATION: HEENT: Head is atraumatic, normocephalic. Pupils equal, round. Neck is supple. There is no elevated jugular venous pressure. HEART EXAMINATION: Heart S1 and S2 irregularly irregular, systolic murmur is CHEST EXAMINATION: Lungs reveal improvement in air exchange bilaterally. ABDOMEN: Soft, obese, nontender. Bowel sounds are heard. No organomegaly noted. EXTREMITIES: 1+ peripheral pulses with 1+ evidence of peripheral edema and no calf tenderness noted. Evidence of bilateral ulcerations NEUROLOGIC patient is awake, alert and oriented -3. . - Labs CBC & Chem 7: 08/06/16 05:48 08/06/16 05:48 Labs: Abnormal Lab Results - Last 24 Hours (Table) 08/06/16 08/06/16 Range/Units 05:48 05:48 RBC 3.67 L (4.30-5.90) m/uL Hgb 10.9 L (13.0-17.5) gm/dL Hct 35.8 L (39.0-53.0) % MCHC 30.4 L (31.0-37.0) g/dL RDW 16.6 H (11.5-15.5) % Lymphocytes # 0.8 L (1.0-4.8) k/uL Carbon Dioxide 31 H (22-30) mmol/L BUN 46 H (9-20) mg/dL Total Bilirubin 1.7 H (0.2-1.3) mg/dL Alkaline Phosphatase 132 H (38-126) U/L Assessment and Plan (1) HTN (hypertension) Status: Acute (2) Chronic a-fib Status: Acute (3) H/O aortic valve replacement Status: Acute (4) Lower extremity ulceration Status: Acute (5) Obesity Status: Acute (6) Diabetes Status: Acute (7) Hyperlipemia Status: Acute Plan: Continue Lasix drip, continue to monitor intake and output along with daily weights. DNP note has been reviewed, I agree with a documented findings and plan of care. Patient was seen and examined.
[2016-08-06] MEDS: SPIRONOLACTONE 25 MG TAB PO SCH (16:19)
[2016-08-06 17:25] LABS: Glucose,Whole Blood 105 mg/dL (75-99)
--- NOTE | 2016-08-06 17:41 | P.PN ---
Subjective Principal diagnosis: syncope with lower extremity edema 66-year-old male who is somewhat of a poor historian presents to the physician's office with a complaint of an episode of syncope and increasing weakness. The patient apparently has been ill over the last year with increasing difficulties with fatigue and worsening exercise tolerance. He developed increasing lower extremity edema and ulcerations. He was caring for them with local products at home including baby powder. This was not working and the ulcerations were continuing to increase in number and size. Not until he had the syncopal event at his home where he bruised his left arm that he finally seek care. It appears his 2 brothers helped him seek care. He lives in a home with his 90-year-old mother. The 2 other brothers do help with the overall care such that they do the shopping and help with the cooking. The patient apparently has been medically disabled since his mid 50s. Relates to feeling somewhat worse today to the onset of a rash on his legs that is burning and uncomfortable. Lower extremity edema is slightly improved. Patient was having some more shortness of breath. Lasix drip has now been started. Attempt to try to have an improved negative fluid balance in process. This also help his lower extremities. Objective - Vital Signs Vital signs: Vital Signs Temp 98.6 F 08/06/16 12:00 Pulse 82 08/06/16 16:00 Resp 18 08/06/16 16:00 BP 111/72 08/06/16 16:00 Pulse Ox 95 08/06/16 16:00 Intake & Output 08/05/16 08/06/16 08/06/16 18:59 06:59 18:59 Intake Total 250 65 128.75 Output Total 2933 1000 Balance 250 -2868 -871.25 Weight 135.4 kg Intake: IV 10 10 35 Furosemide 250 mg In 35 Sodium Chloride 0.9% 225 ml @ 5 MG/HR 5 mls/hr IVP .Q24H [facility] Rx#:[id number] IV Flush 10 10 Intake, IV Titration 55 93.75 Amount Furosemide 250 mg In 55 93.75 Sodium Chloride 0.9% 225 ml @ 5 MG/HR 5 mls/hr IVP .Q24H [facility] Rx#:[id number] Oral 240 Output: Urine 2900 1000 Post Void Residual 33 Other: Voiding Method Urinal Urinal Urinal - Exam Obese 66-year-old male seems to be comfortable sitting upright on the bedside. HEENT: Anicteric conjunctiva are pink and moist nasal mucosa grossly intact without significant lesions, there is no thrush. Poor dentition Neck: The neck is supple without significant lymphadenopathy or thyromegaly. Lungs: There is symmetrical air entry, few basilar crackles scattered wheezes without zeus bronchial sounds or egophony being noted Heart: Irregular with an audible S1 and S2. Soft S4 2/6 systolic murmur left sternal border that radiates to the carotid PMI is nondisplaced Abdomen: Obese, Positive bowel sounds soft and nontender without palpable masses or organomegaly. There was no guarding or rebound. Extremities: The upper extremities show evidence of the bruising to the left arm proximal to the elbow, there is evidence of muscular wasting. The lower extremities have evidence of just trace edema at this time. Skin patient is evidence of the multiple full-thickness ulcerations on the bilateral lower extremities with eschar at the base. He does have a few lesions on the abdominal wall on his pannus. The bruises left arm is without any ulceration. Although does have evidence of some rash-like changes of the bilateral upper extremities and he is not clear how long that has been present. The lower extremity ulcerations have been present for at least a year, improving with the Silvadene wrap. However now has evidence of the purpuric rash in the lower extremities from the knee distally. Is improved today. Is not tender Neuro: Awake alert oriented to person place and time. Follows simple commands. Appears to have a limited IQ - Labs CBC & Chem 7: 08/06/16 05:48 08/06/16 05:48 Labs: Abnormal Lab Results - Last 24 Hours (Table) 08/06/16 08/06/16 08/06/16 Range/Units 05:48 05:48 17:04 RBC 3.67 L (4.30-5.90) m/uL Hgb 10.9 L (13.0-17.5) gm/dL Hct 35.8 L (39.0-53.0) % MCHC 30.4 L (31.0-37.0) g/dL RDW 16.6 H (11.5-15.5) % Lymphocytes # 0.8 L (1.0-4.8) k/uL Carbon Dioxide 31 H (22-30) mmol/L BUN 46 H (9-20) mg/dL POC Glucose (mg/dL) 105 H (75-99) mg/dL Total Bilirubin 1.7 H (0.2-1.3) mg/dL Alkaline Phosphatase 132 H (38-126) U/L Laboratory Results WBC 7.7 k/uL (3.8-10.6) 08/06/16 05:48 RBC 3.67 m/uL (4.30-5.90) L 08/06/16 05:48 Hgb 10.9 gm/dL (13.0-17.5) L 08/06/16 05:48 Hct 35.8 % (39.0-53.0) L 08/06/16 05:48 MCV 97.4 fL (80.0-100.0) 08/06/16 05:48 MCH 29.6 pg (25.0-35.0) 08/06/16 05:48 MCHC 30.4 g/dL (31.0-37.0) L 08/06/16 05:48 RDW 16.6 % (11.5-15.5) H 08/06/16 05:48 Plt Count 297 k/uL (150-450) 08/06/16 05:48 Neutrophils % 73 % 08/06/16 05:48 Lymphocytes % 10 % 08/06/16 05:48 Monocytes % 9 % 08/06/16 05:48 Eosinophils % 3 % 08/06/16 05:48 Basophils % 1 % 08/06/16 05:48 Neutrophils # 5.6 k/uL (1.3-7.7) 08/06/16 05:48 Lymphocytes # 0.8 k/uL (1.0-4.8) L 08/06/16 05:48 Monocytes # 0.7 k/uL (0-1.0) 08/06/16 05:48 Eosinophils # 0.2 k/uL (0-0.7) 08/06/16 05:48 Basophils # 0.0 k/uL (0-0.2) 08/06/16 05:48 Hypochromasia Slight 08/06/16 05:48 Anisocytosis Slight 08/06/16 05:48 Macrocytosis Slight 08/06/16 05:48 ESR 50 mm/hr (0-15) H 07/31/16 05:31 PT sec (9.0-12.0) 08/06/16 05:48 INR (<1.1) 08/06/16 05:48 Sodium 143 mmol/L (137-145) 08/06/16 05:48 Potassium 4.6 mmol/L (3.5-5.1) 08/06/16 05:48 Chloride 100 mmol/L (98-107) 08/06/16 05:48 Carbon Dioxide 31 mmol/L (22-30) H 08/06/16 05:48 Anion Gap 12 mmol/L 08/06/16 05:48 BUN 46 mg/dL (9-20) H 08/06/16 05:48 Creatinine 1.10 mg/dL (0.66-1.25) 08/06/16 05:48 Est GFR (MDRD) Af Amer >60 (>60 ml/min/1.73 sqM) 08/06/16 05:48 Est GFR (MDRD) Non-Af >60 (>60 ml/min/1.73 sqM) 08/06/16 05:48 Glucose 87 mg/dL (74-99) 08/06/16 05:48 POC Glucose (mg/dL) 105 mg/dL (75-99) H 08/06/16 17:04 POC Glu Lisw Mary Arboleda 08/06/16 17:[address] Glu mg/dL 117 mg/dL 07/30/16 13:50 Hemoglobin A1c 5.7 % (4.2-6.1) 07/30/16 13:50 Uric Acid 3.9 mg/dL (3.5-8.5) 08/05/16 05:39 Calcium 9.7 mg/dL (8.4-10.2) 08/06/16 05:48 Magnesium 1.8 mg/dL (1.6-2.3) 08/01/16 06:12 Total Bilirubin 1.7 mg/dL (0.2-1.3) H 08/06/16 05:48 AST 27 U/L (17-59) 08/06/16 05:48 ALT 28 U/L (21-72) 08/06/16 05:48 Alkaline Phosphatase 132 U/L (38-126) H 08/06/16 05:48 C-Reactive Protein 12.9 mg/L (<10.0) H 07/31/16 05:31 NT-Pro-B Natriuret Pep 5800 pg/mL 07/30/16 12:44 Total Protein 7.5 g/dL (6.3-8.2) 08/06/16 05:48 Albumin 3.9 g/dL (3.5-5.0) 08/06/16 05:48 Prealbumin 12 mg/dL (18-36) L 07/31/16 05:31 TSH 4.720 mIU/L (0.465-4.680) H 07/30/16 12:44 Hepatitis A IgM Ab NEGATIVE 07/31/16 05:31 Hep Bs Antigen Negative 07/31/16 05:31 Hep B Core IgM Ab NEGATIVE 07/31/16 05:31 Hep C IgG Ab Negative (Negative) 07/31/16 05:31 Miscellaneous Test PT/INR 08/06/16 05:48 Misc Test Result 08/06/16 05:48 Microbiology 07/30/16 17:47 Leg - Right Gram Stain - Final 07/30/16 17:47 Leg - Right Wound Culture - Final Staphylococcus aureus Strep pyogenes (grp a) Assessment and Plan (1) Lower extremity ulceration Narrative/Plan: 66-year-old male who has a history of significant underlying medical issues including aortic valve replacement and a recent bout of syncope. He relates to about a one-year history of ulcerations to his bilateral lower extremities have been worsening over time. Is doing some in-home care such as local creams and baby powder which has not helped the ulcers improved. Because of the syncopal event in his worsening functional status he was brought to Hospital with concerns to worsening of congestive heart failure. Echocardiogram has been ordered as has carotid Dopplers. These are pending at this time. The patient is evidence of chronic lower extremity ulcerations and arterial Dopplers are in process and awaited but the venous studies show notice any deep venous thrombosis In the meantime cultures obtained and local wound care with Silvadene and a light wrap will be applied. The patient was concerned that he could be at risk for losing his legs. We discussed at the moment that workup is needed but he does not have evidence of gangrenous changes necessitating amputation at this time. His diabetes appears to be well controlled Evaluation of his cardiovascular status is in process to evaluate impact of his cardiovascular status on his lower extremities. Given his obesity and abnormal liver functions hepatitis panel was checked and is negative for viral hepatitis. Culture did show evidence of MSSA as well as strep and cefazolin 2 g IV piggyback every 8 hours in use. Continue local wound care with Silvadene and wraps and elevation. Continue with treatment for his volume overload. Since the ulceration is improving alter cefazolin to cefuroxime 500 mg every 12 hours. The current skin eruption was thought to be due to his Coumadin therapy. It is limited to the lower extremities. The skin eruption is improving. Volume overload remains a problem and is now on the Lasix drip. Status: Acute (2) H/O aortic valve replacement Status: Acute (3) Warfarin-induced coagulopathy Status: Acute (4) Obesity Status: Acute
--- NOTE | 2016-08-06 19:26 | XR ---
EXAMINATION TYPE: XR chest 2V DATE OF EXAM: 08/06/2016 7:20 PM COMPARISON: 08/02/2016 HISTORY: Cough and syncope TECHNIQUE: Frontal and lateral views of the chest are obtained. FINDINGS: There is slight blunting of costophrenic angles. There is mild pulmonary congestion. Heart is probably enlarged. There are chest leads. There are no hilar masses. There are sternal wires. IMPRESSION: There could be mild heart failure without change compared to last exam. Small right pleu ral effusion.
[2016-08-06 20:40] LABS: Glucose,Whole Blood 146 mg/dL (75-99)
[2016-08-07] MEDS: HYDROcodone/APAP 5-325MG 1 EACH TAB PO PRN ×4 (02:14→21:25)
[2016-08-07] MEDS: SILVER sulfADIAZINE Cream 400 GM 1 APPLIC APPLIC TOPICAL SCH ×3 (03:02→21:26)
[2016-08-07 05:52] LABS: Glucose,Whole Blood 101 mg/dL (75-99)
[2016-08-07 06:33] LABS: INR 1.9 (<1.1); Prothrombin Time 17.9 sec (9.0-12.0)
[2016-08-07] MEDS: INSULIN LISPRO (humaLOG) 300 UNIT/3 ML VIAL SQ SCH ×4 (06:55→21:12)
[2016-08-07] MEDS: GLIMEPIRIDE 1 MG TAB PO SCH (06:55)
[2016-08-07] MEDS: LEVOTHYROXINE 25 MCG TAB PO SCH (06:56)
[2016-08-07] MEDS: diphenhydrAMINE 25 MG CAP PO PRN ×3 (06:59→21:25)
[2016-08-07] MEDS: ATORVASTATIN 20 MG TAB PO SCH (08:29)
[2016-08-07] MEDS: METOPROLOL TARTRATE 50 MG TAB PO SCH ×2 (08:29→21:11)
[2016-08-07] MEDS: SPIRONOLACTONE 25 MG TAB PO SCH (08:29)
[2016-08-07] MEDS: LISINOPRIL 20 MG TAB PO SCH (08:29)
[2016-08-07] MEDS: CEFUROXIME 250 MG TAB PO SCH ×2 (08:29→21:11)
[2016-08-07] MEDS: FUROSEMIDE 250 MG in SODIUM CHLORIDE 0.9% 225 ML IVP SCH (09:48)
[2016-08-07 10:34] LABS: Anisocytosis Slight; Basophils # (A) 0.1 k/uL (0-0.2); Basophils % (A) 1 %; CH 30.1; CHCM 30.9; Eosinophils # (A) 0.2 k/uL (0-0.7); Eosinophils % (A) 3 %; HCT 36.1 % (39.0-53.0); HDW 2.96; HGB 11.1 gm/dL (13.0-17.5); Hypochromasia Moderate; Luc # (Auto) 0.21; Luc % (Auto) 3; Lymphocytes # (A) 0.7 k/uL (1.0-4.8); Lymphocytes % (A) 9 %; MCH 30.2 pg (25.0-35.0); MCHC 30.8 g/dL (31.0-37.0); MCV 98.2 fL (80.0-100.0); Macrocytosis Slight; Mean Platelet Volume 8.3; Monocytes # (A) 0.8 k/uL (0-1.0); Monocytes % (A) 11 %; Neutrophils # (A) 5.1 k/uL (1.3-7.7); Neutrophils % (A) 72 %; RBC 3.67 m/uL (4.30-5.90); RDW 16.8 % (11.5-15.5); WBC 7.1 k/uL (3.8-10.6); WBC (Perox) 7.82
[2016-08-07 10:36] LABS: Anion Gap 14 mmol/L; Blood Urea Nitrogen 48 mg/dL (9-20); Calcium 9.6 mg/dL (8.4-10.2); Carbon Dioxide 27 mmol/L (22-30); Chloride 101 mmol/L (98-107); Glucose 95 mg/dL (74-99); Magnesium 2.2 mg/dL (1.6-2.3); Non-African American GFR(MDRD) >60 (>60 ml/min/1.73 sqM); Potassium 4.7 mmol/L (3.5-5.1); Sodium 142 mmol/L (137-145)
[2016-08-07 12:12] LABS: Glucose,Whole Blood 94 mg/dL (75-99)
--- NOTE | 2016-08-07 16:12 | P.PN ---
Subjective Patient's anasarca improving gradually Objective - Vital Signs Vital signs: Vital Signs Temp 96.7 F L 08/07/16 12:00 Pulse 67 08/07/16 12:00 Resp 18 08/07/16 12:00 BP 127/79 08/07/16 12:00 Pulse Ox 93 L 08/07/16 12:00 Intake & Output 08/06/16 08/07/16 08/07/16 18:59 06:59 18:59 Intake Total 128.75 40 229.916 Output Total 1000 1787 575 Balance -871.25 -1747 -345.084 Weight 134.1 kg Intake: IV 35 40 Furosemide 250 mg In 35 40 Sodium Chloride 0.9% 225 ml @ 5 MG/HR 5 mls/hr IVP .Q24H [facility] Rx#:[id number] Intake, IV Titration 93.75 109.916 Amount Furosemide 250 mg In 93.75 109.916 Sodium Chloride 0.9% 225 ml @ 5 MG/HR 5 mls/hr IVP .Q24H [facility] Rx#:[id number] Oral 120 Output: Urine 1000 1750 575 Post Void Residual 37 Other: Voiding Method Urinal Urinal # Voids 1 - Exam General: The patient is awake and alert, in no distress Eye: there is normal conjunctiva bilaterally. Neck: The neck is supple, there is no JVD. Cardiovascular: Normal S1-S2, no S3-S4, no murmurs. Respiratory: Lungs clear to auscultation bilaterally Gastrointestinal: Abdomen is soft, nontender Musculoskeletal: Lower extremities wrapped with Van wrap to [id number]. There is evidence of anasarca up to the hip bilaterally Neurological:. Speech is normal. Skin: There is redness and evidence of poor involving the skin on the lower extremity above the knee above the Van wrap up to the midthigh - Labs CBC & Chem 7: 08/07/16 06:04 08/07/16 06:04 Labs: Abnormal Lab Results - Last 24 Hours (Table) 08/06/16 08/06/16 08/07/16 Range/Units 17:04 20:39 05:50 RBC (4.30-5.90) m/uL Hgb (13.0-17.5) gm/dL Hct (39.0-53.0) % MCHC (31.0-37.0) g/dL RDW (11.5-15.5) % Lymphocytes # (1.0-4.8) k/uL PT (9.0-12.0) sec BUN (9-20) mg/dL POC Glucose (mg/dL) 105 H 146 H 101 H (75-99) mg/dL 08/07/16 08/07/16 08/07/16 Range/Units 06:04 06:04 06:04 RBC 3.67 L (4.30-5.90) m/uL Hgb 11.1 L (13.0-17.5) gm/dL Hct 36.1 L (39.0-53.0) % MCHC 30.8 L (31.0-37.0) g/dL RDW 16.8 H (11.5-15.5) % Lymphocytes # 0.7 L (1.0-4.8) k/uL PT 17.9 H (9.0-12.0) sec BUN 48 H (9-20) mg/dL POC Glucose (mg/dL) (75-99) mg/dL Assessment and Plan Plan: #1 worsening dyspnea, secondary to acute diastolic congestive heart failure exacerbation, echocardiogram showed preserved ejection fraction of 50-55%. Elevated right ventricular and diastolic pressure with diastolic dysfunction #2 severe pulmonary hypertension/cor pulmonale with diffuse anasarca #3 coagulopathy, Coumadin was discontinued. Patient started on Rivaroxaban #4 bilateral lower extremity cellulitis was large ulcers, infectious disease consultation was requested, antibiotic switched to oral. Doppler ultrasound negative for DVT #5 underlying history of [id number]-[id number] diabetes mellitus millimeters, continue with his home medications at this time #6 underlying history of gout, I would discontinue allopurinol for now. Uric acid within acceptable range. May recheck couple of month and resume allopurinol as needed #7 bilateral lower extremity purpura likely related to Coumadin and possibly allopurinol use: May use Benadryl for itching as needed Plan for today: continue diuresis with Lasix drip at 5 mg per hour. Continue to monitor I's and O's closely. Repeat lab work in the morning. Appreciate [employer] consultant's recommendations.
[2016-08-07] MEDS ORDERED: METOLAZONE 2.5 MG TAB PO STA (16:42)
--- NOTE | 2016-08-07 16:44 | P.PN ---
Subjective Principal diagnosis: Dyspnea This is a 66-year-old gentleman with known history of bicuspid aortic valve, status post aortic valve replacement, history of cardiomyopathy in the past , atrial fibrillation, who presented to the hospital with ulcerations and edema in the lower extremities as well as associated dyspnea. A repeat echocardiogram with Doppler study was performed this admission which revealed a normal left ventricular systolic function. Blood pressure today 110/80 with a heart rate of 70. Hemoglobin 11.1, platelet count 300, potassium 4.7, , BUN 48 , creatinine 1.1. Patient was seen and examined this morning, overall doing much better. Edema is improving. Breathing is improving. Weight down 1 kg Objective - Vital Signs Vital signs: Vital Signs Temp 97.4 F L 08/07/16 15:50 Pulse 74 08/07/16 15:50 Resp 18 08/07/16 15:50 BP 136/85 08/07/16 15:50 Pulse Ox 93 L 08/07/16 15:50 Intake & Output 08/06/16 08/07/16 08/07/16 18:59 06:59 18:59 Intake Total 128.75 40 229.916 Output Total 1000 1787 575 Balance -871.25 -1747 -345.084 Weight 134.1 kg Intake: IV 35 40 Furosemide 250 mg In 35 40 Sodium Chloride 0.9% 225 ml @ 5 MG/HR 5 mls/hr IVP .Q24H [facility] Rx#:[id number] Intake, IV Titration 93.75 109.916 Amount Furosemide 250 mg In 93.75 109.916 Sodium Chloride 0.9% 225 ml @ 5 MG/HR 5 mls/hr IVP .Q24H [facility] Rx#:[id number] Oral 120 Output: Urine 1000 1750 575 Post Void Residual 37 Other: Voiding Method Urinal Urinal # Voids 1 - Exam PHYSICAL EXAMINATION: HEENT: Head is atraumatic, normocephalic. Pupils equal, round. Neck is supple. There is no elevated jugular venous pressure. HEART EXAMINATION: Heart S1 and S2 irregularly irregular, systolic murmur is CHEST EXAMINATION: Lungs reveal improvement in air exchange bilaterally. ABDOMEN: Soft, obese, nontender. Bowel sounds are heard. No organomegaly noted. EXTREMITIES: 1+ peripheral pulses with 1+ evidence of peripheral edema and no calf tenderness noted. Evidence of bilateral ulcerations NEUROLOGIC patient is awake, alert and oriented -3. . - Labs CBC & Chem 7: 08/07/16 06:04 08/07/16 06:04 Labs: Abnormal Lab Results - Last 24 Hours (Table) 08/06/16 08/06/16 08/07/16 Range/Units 17:04 20:39 05:50 RBC (4.30-5.90) m/uL Hgb (13.0-17.5) gm/dL Hct (39.0-53.0) % MCHC (31.0-37.0) g/dL RDW (11.5-15.5) % Lymphocytes # (1.0-4.8) k/uL PT (9.0-12.0) sec BUN (9-20) mg/dL POC Glucose (mg/dL) 105 H 146 H 101 H (75-99) mg/dL 08/07/16 08/07/16 08/07/16 Range/Units 06:04 06:04 06:04 RBC 3.67 L (4.30-5.90) m/uL Hgb 11.1 L (13.0-17.5) gm/dL Hct 36.1 L (39.0-53.0) % MCHC 30.8 L (31.0-37.0) g/dL RDW 16.8 H (11.5-15.5) % Lymphocytes # 0.7 L (1.0-4.8) k/uL PT 17.9 H (9.0-12.0) sec BUN 48 H (9-20) mg/dL POC Glucose (mg/dL) (75-99) mg/dL Assessment and Plan (1) HTN (hypertension) Status: Acute (2) Chronic a-fib Status: Acute (3) H/O aortic valve replacement Status: Acute (4) Lower extremity ulceration Status: Acute (5) Obesity Status: Acute (6) Diabetes Status: Acute (7) Hyperlipemia Status: Acute Plan: Continue Lasix drip, give one dose of Zaroxolyn 2.5 mg, continue to monitor intake and output along with daily weights. DNP note has been reviewed, I agree with a documented findings and plan of care. Patient was seen and examined.
[2016-08-07 17:13] LABS: Glucose,Whole Blood 100 mg/dL (75-99)
[2016-08-07] MEDS: RIVAROXABAN 10 MG TAB PO SCH (17:36)
--- NOTE | 2016-08-07 20:05 | P.PN ---
Subjective Principal diagnosis: syncope with lower extremity edema 66-year-old male who is somewhat of a poor historian presents to the physician's office with a complaint of an episode of syncope and increasing weakness. The patient apparently has been ill over the last year with increasing difficulties with fatigue and worsening exercise tolerance. He developed increasing lower extremity edema and ulcerations. He was caring for them with local products at home including baby powder. This was not working and the ulcerations were continuing to increase in number and size. Not until he had the syncopal event at his home where he bruised his left arm that he finally seek care. It appears his 2 brothers helped him seek care. He lives in a home with his 90-year-old mother. The 2 other brothers do help with the overall care such that they do the shopping and help with the cooking. The patient apparently has been medically disabled since his mid 50s. Relates to feeling somewhat worse today to the onset of a rash on his legs that is burning and uncomfortable. Lower extremity edema is slightly improved. Patient was having some more shortness of breath. Lasix drip has now been started. This allowed a negative fluid balance and he feels better today. Objective - Vital Signs Vital signs: Vital Signs Temp 97.4 F L 08/07/16 15:50 Pulse 74 08/07/16 15:50 Resp 18 08/07/16 15:50 BP 136/85 08/07/16 15:50 Pulse Ox 93 L 08/07/16 15:50 Intake & Output 08/07/16 08/07/16 08/08/16 06:59 18:59 06:59 Intake Total 40 238.916 Output Total 1787 1125 200 Balance -1747 -886.084 -200 Weight 134.1 kg Intake: IV 40 9 Furosemide 250 mg In 40 Sodium Chloride 0.9% 225 ml @ 5 MG/HR 5 mls/hr IVP .Q24H [facility] Rx#:[id number] IV Flush 9 Intake, IV Titration 109.916 Amount Furosemide 250 mg In 109.916 Sodium Chloride 0.9% 225 ml @ 5 MG/HR 5 mls/hr IVP .Q24H [facility] Rx#:[id number] Oral 120 Output: Urine 1750 1125 200 Post Void Residual 37 Other: Voiding Method Urinal # Voids 1 - Exam Obese 66-year-old male seems to be comfortable sitting upright on the bedside. HEENT: Anicteric conjunctiva are pink and moist nasal mucosa grossly intact without significant lesions, there is no thrush. Poor dentition Neck: The neck is supple without significant lymphadenopathy or thyromegaly. Lungs: There is symmetrical air entry, few basilar crackles scattered wheezes without zeus bronchial sounds or egophony being noted Heart: Irregular with an audible S1 and S2. Soft S4 2/6 systolic murmur left sternal border that radiates to the carotid PMI is nondisplaced Abdomen: Obese, Positive bowel sounds soft and nontender without palpable masses or organomegaly. There was no guarding or rebound. Extremities: The upper extremities show evidence of the bruising to the left arm proximal to the elbow, there is evidence of muscular wasting. The lower extremities have evidence of just trace edema at this time. Skin patient is evidence of the multiple full-thickness ulcerations on the bilateral lower extremities with eschar at the base. He does have a few lesions on the abdominal wall on his pannus. The bruises left arm is without any ulceration. Although does have evidence of some rash-like changes of the bilateral upper extremities and he is not clear how long that has been present. The lower extremity ulcerations have been present for at least a year, improving with the Silvadene wrap. However now has evidence of the purpuric rash in the lower extremities from the knee distally. It was improving but on the posterior aspect of the left knee is some increased irritation. Neuro: Awake alert oriented to person place and time. Follows simple commands. Appears to have a limited IQ - Labs CBC & Chem 7: 08/07/16 06:04 08/07/16 06:04 Labs: Abnormal Lab Results - Last 24 Hours (Table) 08/06/16 08/07/16 08/07/16 Range/Units 20:39 05:50 06:04 RBC (4.30-5.90) m/uL Hgb (13.0-17.5) gm/dL Hct (39.0-53.0) % MCHC (31.0-37.0) g/dL RDW (11.5-15.5) % Lymphocytes # (1.0-4.8) k/uL PT 17.9 H (9.0-12.0) sec BUN (9-20) mg/dL POC Glucose (mg/dL) 146 H 101 H (75-99) mg/dL 08/07/16 08/07/16 08/07/16 Range/Units 06:04 06:04 17:11 RBC 3.67 L (4.30-5.90) m/uL Hgb 11.1 L (13.0-17.5) gm/dL Hct 36.1 L (39.0-53.0) % MCHC 30.8 L (31.0-37.0) g/dL RDW 16.8 H (11.5-15.5) % Lymphocytes # 0.7 L (1.0-4.8) k/uL PT (9.0-12.0) sec BUN 48 H (9-20) mg/dL POC Glucose (mg/dL) 100 H (75-99) mg/dL Laboratory Results WBC 7.1 k/uL (3.8-10.6) 08/07/16 06:04 RBC 3.67 m/uL (4.30-5.90) L 08/07/16 06:04 Hgb 11.1 gm/dL (13.0-17.5) L 08/07/16 06:04 Hct 36.1 % (39.0-53.0) L 08/07/16 06:04 MCV 98.2 fL (80.0-100.0) 08/07/16 06:04 MCH 30.2 pg (25.0-35.0) 08/07/16 06:04 MCHC 30.8 g/dL (31.0-37.0) L 08/07/16 06:04 RDW 16.8 % (11.5-15.5) H 08/07/16 06:04 Plt Count 300 k/uL (150-450) 08/07/16 06:04 Neutrophils % 72 % 08/07/16 06:04 Lymphocytes % 9 % 08/07/16 06:04 Monocytes % 11 % 08/07/16 06:04 Eosinophils % 3 % 08/07/16 06:04 Basophils % 1 % 08/07/16 06:04 Neutrophils # 5.1 k/uL (1.3-7.7) 08/07/16 06:04 Lymphocytes # 0.7 k/uL (1.0-4.8) L 08/07/16 06:04 Monocytes # 0.8 k/uL (0-1.0) 08/07/16 06:04 Eosinophils # 0.2 k/uL (0-0.7) 08/07/16 06:04 Basophils # 0.1 k/uL (0-0.2) 08/07/16 06:04 Hypochromasia Moderate 08/07/16 06:04 Anisocytosis Slight 08/07/16 06:04 Macrocytosis Slight 08/07/16 06:04 ESR 50 mm/hr (0-15) H 07/31/16 05:31 PT 17.9 sec (9.0-12.0) H 08/07/16 06:04 INR 1.9 (<1.1) 08/07/16 06:04 Sodium 142 mmol/L (137-145) 08/07/16 06:04 Potassium 4.7 mmol/L (3.5-5.1) 08/07/16 06:04 Chloride 101 mmol/L (98-107) 08/07/16 06:04 Carbon Dioxide 27 mmol/L (22-30) 08/07/16 06:04 Anion Gap 14 mmol/L 08/07/16 06:04 BUN 48 mg/dL (9-20) H 08/07/16 06:04 Creatinine 1.14 mg/dL (0.66-1.25) 08/07/16 06:04 Est GFR (MDRD) Af Amer >60 (>60 ml/min/1.73 sqM) 08/07/16 06:04 Est GFR (MDRD) Non-Af >60 (>60 ml/min/1.73 sqM) 08/07/16 06:04 Glucose 95 mg/dL (74-99) 08/07/16 06:04 POC Glucose (mg/dL) 100 mg/dL (75-99) H 08/07/16 17:11 POC Glu Computer Systems Designer ID [email or web address] 08/07/16 17:[address] Glu mg/dL 117 mg/dL 07/30/16 13:50 Hemoglobin A1c 5.7 % (4.2-6.1) 07/30/16 13:50 Uric Acid 3.9 mg/dL (3.5-8.5) 08/05/16 05:39 Calcium 9.6 mg/dL (8.4-10.2) 08/07/16 06:04 Magnesium 2.2 mg/dL (1.6-2.3) 08/07/16 06:04 Total Bilirubin 1.7 mg/dL (0.2-1.3) H 08/06/16 05:48 AST 27 U/L (17-59) 08/06/16 05:48 ALT 28 U/L (21-72) 08/06/16 05:48 Alkaline Phosphatase 132 U/L (38-126) H 08/06/16 05:48 C-Reactive Protein 12.9 mg/L (<10.0) H 07/31/16 05:31 NT-Pro-B Natriuret Pep 5800 pg/mL 07/30/16 12:44 Total Protein 7.5 g/dL (6.3-8.2) 08/06/16 05:48 Albumin 3.9 g/dL (3.5-5.0) 08/06/16 05:48 Prealbumin 12 mg/dL (18-36) L 07/31/16 05:31 TSH 4.720 mIU/L (0.465-4.680) H 07/30/16 12:44 Hepatitis A IgM Ab NEGATIVE 07/31/16 05:31 Hep Bs Antigen Negative 07/31/16 05:31 Hep B Core IgM Ab NEGATIVE 07/31/16 05:31 Hep C IgG Ab Negative (Negative) 07/31/16 05:31 Miscellaneous Test PT/INR 08/06/16 05:48 Misc Test Result 08/06/16 05:48 Microbiology 07/30/16 17:47 Leg - Right Gram Stain - Final 07/30/16 17:47 Leg - Right Wound Culture - Final Staphylococcus aureus Strep pyogenes (grp a) Assessment and Plan (1) Lower extremity ulceration Narrative/Plan: 66-year-old male who has a history of significant underlying medical issues including aortic valve replacement and a recent bout of syncope. He relates to about a one-year history of ulcerations to his bilateral lower extremities have been worsening over time. Is doing some in-home care such as local creams and baby powder which has not helped the ulcers improved. Because of the syncopal event in his worsening functional status he was brought to Hospital with concerns to worsening of congestive heart failure. Echocardiogram has been ordered as has carotid Dopplers. These are pending at this time. The patient is evidence of chronic lower extremity ulcerations and arterial Dopplers are in process and awaited but the venous studies show notice any deep venous thrombosis In the meantime cultures obtained and local wound care with Silvadene and a light wrap will be applied. The patient was concerned that he could be at risk for losing his legs. We discussed at the moment that workup is needed but he does not have evidence of gangrenous changes necessitating amputation at this time. His diabetes appears to be well controlled Evaluation of his cardiovascular status is in process to evaluate impact of his cardiovascular status on his lower extremities. Given his obesity and abnormal liver functions hepatitis panel was checked and is negative for viral hepatitis. Culture did show evidence of MSSA as well as strep and cefazolin 2 g IV piggyback every 8 hours in use. Continue local wound care with Silvadene and wraps and elevation. Continue with treatment for his volume overload. Since the ulceration is improving alter cefazolin to cefuroxime 500 mg every 12 hours. The current skin eruption was thought to be due to his Coumadin therapy. To the area that is more irritated will add in some topical triamcinolone. It is limited to the lower extremities. . Volume overload remains a problem and is now on the Lasix drip. Status: Acute (2) H/O aortic valve replacement Status: Acute (3) Warfarin-induced coagulopathy Status: Acute (4) Obesity Status: Acute
[2016-08-07 21:09] LABS: Glucose,Whole Blood 131 mg/dL (75-99)
[2016-08-07] MEDS: TRIAMCINOLONE 0.1% CREAM 80 GM TUBE TOPICAL SCH (21:26)
[2016-08-08 05:58] LABS: Glucose,Whole Blood 94 mg/dL (75-99)
[2016-08-08] MEDS: INSULIN LISPRO (humaLOG) 300 UNIT/3 ML VIAL SQ SCH ×4 (06:01→20:59)
[2016-08-08] MEDS: LEVOTHYROXINE 25 MCG TAB PO SCH (06:20)
[2016-08-08] MEDS: HYDROcodone/APAP 5-325MG 1 EACH TAB PO PRN ×3 (06:21→23:14)
[2016-08-08] MEDS: diphenhydrAMINE 25 MG CAP PO PRN ×3 (06:21→23:14)
[2016-08-08] MEDS: GLIMEPIRIDE 1 MG TAB PO SCH (06:21)
[2016-08-08 06:32] LABS: Anisocytosis Slight; Basophils % (A) 1 %; CH 29.7; CHCM 30.6; Eosinophils # (A) 0.2 k/uL (0-0.7); Eosinophils % (A) 3 %; HCT 38.2 % (39.0-53.0); HDW 2.83; HGB 11.4 gm/dL (13.0-17.5); Hypochromasia Moderate; Luc # (Auto) 0.25; Luc % (Auto) 3; Lymphocytes # (A) 0.6 k/uL (1.0-4.8); Lymphocytes % (A) 8 %; MCHC 29.7 g/dL (31.0-37.0); MCV 97.7 fL (80.0-100.0); Macrocytosis Slight; Monocytes # (A) 0.8 k/uL (0-1.0); Monocytes % (A) 10 %; Neutrophils # (A) 5.5 k/uL (1.3-7.7); Neutrophils % (A) 74 %; RBC 3.92 m/uL (4.30-5.90); RDW 16.5 % (11.5-15.5); WBC 7.4 k/uL (3.8-10.6); WBC (Perox) 7.82
[2016-08-08 06:36] LABS: INR 2.2 (<1.1); Prothrombin Time 21.1 sec (9.0-12.0)
[2016-08-08 06:44] LABS: Anion Gap 14 mmol/L; Blood Urea Nitrogen 53 mg/dL (9-20); Carbon Dioxide 29 mmol/L (22-30); Chloride 96 mmol/L (98-107); Glucose 95 mg/dL (74-99); Magnesium 2.2 mg/dL (1.6-2.3); Non-African American GFR(MDRD) >60 (>60 ml/min/1.73 sqM); Potassium 4.6 mmol/L (3.5-5.1); Sodium 139 mmol/L (137-145)
[2016-08-08] MEDS: LISINOPRIL 20 MG TAB PO SCH (08:24)
[2016-08-08] MEDS: CEFUROXIME 250 MG TAB PO SCH ×2 (08:24→20:13)
[2016-08-08] MEDS: METOPROLOL TARTRATE 50 MG TAB PO SCH ×2 (08:24→20:13)
[2016-08-08] MEDS: SPIRONOLACTONE 25 MG TAB PO SCH (08:24)
[2016-08-08] MEDS: SILVER sulfADIAZINE Cream 400 GM 1 APPLIC APPLIC TOPICAL SCH ×2 (08:24→20:13)
[2016-08-08] MEDS: ATORVASTATIN 20 MG TAB PO SCH (08:24)
[2016-08-08] MEDS: TRIAMCINOLONE 0.1% CREAM 80 GM TUBE TOPICAL SCH ×3 (08:24→20:13)
--- NOTE | 2016-08-08 09:17 | P.PN ---
Subjective Principal diagnosis: Acute congestive heart failure exacerbation Patient is a 66-year-old male with known history of aortic valve replacement and history of cardiomyopathy who was admitted to [facility] with multiple medical problems including syncopal episode, worsening shortness of breath with evidence of acute exacerbation of congestive heart failure, bilateral lower extremity cellulitis with large ulcerations on bilateral pretibial areas. He was admitted to telemetry floor he was started on IV Lasix he was seen by cardiology and by infectious disease. Today he is feeling somewhat better his shortness of breath has improved lower extremity swelling has improved he has dressing on bilateral lower extremities. He denies any chest pain no dizziness no nausea or vomiting no abdominal pain and no urinary symptoms. Weight continued to be elevated despite IV Lasix, patient was started on Lasix drip and oral Zaroxolyn, he is starting to lose weight, BUN and creatinine are going up gradually, will monitor closely. Objective - Vital Signs Vital signs: Vital Signs Temp 97.4 F L 08/08/16 04:00 Pulse 73 08/08/16 06:20 Resp 18 08/08/16 06:20 BP 116/82 08/08/16 06:20 Pulse Ox 92 L 08/08/16 06:20 Intake & Output 08/07/16 08/08/16 08/08/16 18:59 06:59 18:59 Intake Total 238.916 Output Total 1125 3675 300 Balance -886.084 -3675 -300 Weight 130.7 kg Intake: IV 9 IV Flush 9 Intake, IV Titration 109.916 Amount Furosemide 250 mg In 109.916 Sodium Chloride 0.9% 225 ml @ 5 MG/HR 5 mls/hr IVP .Q24H [facility] Rx#:[id number] Oral 120 Output: Urine 1125 3675 300 Other: Voiding Method Urinal # Voids 1 1 - Exam In general patient is alert and oriented 3 in no apparent distress HEENT head normocephalic and atraumatic Neck is supple no JVD no goiter no lymphadenopathy Chest exam reveals a scattered crackles in both lung [place] no wheezing Cardiac exam reveals irregular heart sounds no gallops no murmurs Abdomen is soft nontender no organomegaly Extremity exam reveals 3+ edema, with large ulcers on bilateral lower extremities no cyanosis or clubbing Skin exam reveals generalized purpura rash on upper and lower extremities - Labs CBC & Chem 7: 08/08/16 05:54 08/08/16 05:54 Labs: Abnormal Lab Results - Last 24 Hours (Table) 08/07/16 08/07/16 08/07/16 Range/Units 06:04 06:04 17:11 RBC 3.67 L (4.30-5.90) m/uL Hgb 11.1 L (13.0-17.5) gm/dL Hct 36.1 L (39.0-53.0) % MCHC 30.8 L (31.0-37.0) g/dL RDW 16.8 H (11.5-15.5) % Lymphocytes # 0.7 L (1.0-4.8) k/uL PT (9.0-12.0) sec Chloride (98-107) mmol/L BUN 48 H (9-20) mg/dL POC Glucose (mg/dL) 100 H (75-99) mg/dL 08/07/16 08/08/16 08/08/16 Range/Units 21:08 05:54 05:54 RBC 3.92 L (4.30-5.90) m/uL Hgb 11.4 L (13.0-17.5) gm/dL Hct 38.2 L (39.0-53.0) % MCHC 29.7 L (31.0-37.0) g/dL RDW 16.5 H (11.5-15.5) % Lymphocytes # 0.6 L (1.0-4.8) k/uL PT 21.1 H (9.0-12.0) sec Chloride (98-107) mmol/L BUN (9-20) mg/dL POC Glucose (mg/dL) 131 H (75-99) mg/dL 08/08/16 Range/Units 05:54 RBC (4.30-5.90) m/uL Hgb (13.0-17.5) gm/dL Hct (39.0-53.0) % MCHC (31.0-37.0) g/dL RDW (11.5-15.5) % Lymphocytes # (1.0-4.8) k/uL PT (9.0-12.0) sec Chloride 96 L (98-107) mmol/L BUN 53 H (9-20) mg/dL POC Glucose (mg/dL) (75-99) mg/dL Assessment and Plan Plan: #1 syncopal episode, patient described waiting for the bus on his porch when the bus came in he walked down the 3 steps off his porch and then he felt dizzy and fell to the ground the business analytics intern came down to help him he regained consciousness momentarily this happened few days prior to admission. At this time will check echocardiogram and carotid Doppler. #2 worsening dyspnea, likely acute diastolic congestive heart failure exacerbation, echocardiogram was ordered and cardiology consult requested patient was started on IV Lasix drip and Zaroxolyn, patient is starting to lose weight, will monitor kidney function closely #3 coagulopathy on admission resolved, patient was switched from Coumadin to Xarelto #4 bilateral lower extremity cellulitis was large ulcers, infectious disease consultation was requested, maintained on IV cefazolin #5 underlying history of [id number] diabetes mellitus millimeters, will check hemoglobin A1c will continue was his home medications at this time #6 underlying history of gout, resume allopurinol #7 bilateral lower extremity purpura likely related to Coumadin use, anticoagulation switched to Xarelto #8 for GI prophylaxis we will use Pepcid, for DVT prophylaxis will continue with Xarelto Will follow patient closely awaiting input from cardiology and infectious disease
--- NOTE | 2016-08-08 09:46 | P.ARTDOP ---
Arterial Doppler LOWER EXTREMITY ARTERIAL DOPPLER: DATE OF SERVICE: 07/31/2016 Reason for study: Bilateral lower leg cellulitis. Doppler waveforms: Multiphasic bilaterally throughout. Pulse volume recording: Normal configuration. Pressure gradients: None. Ankle-brachial indices: Greater than 1 bilaterally. Toe pressures: 88 on the right, 60 on the left Impression: Essentially normal study. Decrease in pressures on the left foot are probably a physiologic issue. Not related to tissue healing..
[2016-08-08 11:36] LABS: Glucose,Whole Blood 71 mg/dL (75-99)
[2016-08-08 14:04] VITALS: BMI 46.5
[2016-08-08] MEDS ORDERED: METOLAZONE 2.5 MG TAB PO STA (15:17)
--- NOTE | 2016-08-08 15:25 | P.PN ---
Subjective Principal diagnosis: Dyspnea This is a 66-year-old gentleman with known history of bicuspid aortic valve, status post aortic valve replacement, history of cardiomyopathy in the past , atrial fibrillation, who presented to the hospital with ulcerations and edema in the lower extremities as well as associated dyspnea. A repeat echocardiogram with Doppler study was performed this admission which revealed a normal left ventricular systolic function. Blood pressure today 110/80 with a heart rate of 70. Hemoglobin 11.4, platelet count 321, potassium 4.6, , BUN 53 , creatinine 1.1. Patient was seen and examined this morning, overall doing much better. Edema is improving. Breathing is improving. Weight down 3 kg. we will continue IV Lasix drip, give one more dose of Zaroxolyn today. Objective - Vital Signs Vital signs: Vital Signs Temp 96.0 F L 08/08/16 11:40 Pulse 62 08/08/16 11:40 Resp 18 08/08/16 11:40 BP 108/58 08/08/16 11:40 Pulse Ox 94 L 08/08/16 11:40 Intake & Output 08/07/16 08/08/16 08/08/16 18:59 06:59 18:59 Intake Total 238.916 336 Output Total 1125 3675 1050 Balance -886.084 -3595 -714 Weight 130.7 kg 130.7 kg Intake: IV 9 IV Flush 9 Intake, IV Titration 109.916 Amount Furosemide 250 mg In 109.916 Sodium Chloride 0.9% 225 ml @ 5 MG/HR 5 mls/hr IVP .Q24H [facility] Rx#:[id number] Oral 120 336 Output: Urine 1125 3675 1050 Other: Voiding Method Urinal # Voids 1 1 - Exam PHYSICAL EXAMINATION: HEENT: Head is atraumatic, normocephalic. Pupils equal, round. Neck is supple. There is no elevated jugular venous pressure. HEART EXAMINATION: Heart S1 and S2 irregularly irregular, systolic murmur is CHEST EXAMINATION: Lungs reveal improvement in air exchange bilaterally. ABDOMEN: Soft, obese, nontender. Bowel sounds are heard. No organomegaly noted. EXTREMITIES: 1+ peripheral pulses with trace to 1+ evidence of peripheral edema and no calf tenderness noted. Evidence of bilateral ulcerations NEUROLOGIC patient is awake, alert and oriented -3. . - Labs CBC & Chem 7: 08/08/16 05:54 08/08/16 05:54 Labs: Abnormal Lab Results - Last 24 Hours (Table) 08/07/16 08/07/16 08/08/16 Range/Units 17:11 21:08 05:54 RBC 3.92 L (4.30-5.90) m/uL Hgb 11.4 L (13.0-17.5) gm/dL Hct 38.2 L (39.0-53.0) % MCHC 29.7 L (31.0-37.0) g/dL RDW 16.5 H (11.5-15.5) % Lymphocytes # 0.6 L (1.0-4.8) k/uL PT (9.0-12.0) sec Chloride (98-107) mmol/L BUN (9-20) mg/dL POC Glucose (mg/dL) 100 H 131 H (75-99) mg/dL 08/08/16 08/08/16 08/08/16 Range/Units 05:54 05:54 11:34 RBC (4.30-5.90) m/uL Hgb (13.0-17.5) gm/dL Hct (39.0-53.0) % MCHC (31.0-37.0) g/dL RDW (11.5-15.5) % Lymphocytes # (1.0-4.8) k/uL PT 21.1 H (9.0-12.0) sec Chloride 96 L (98-107) mmol/L BUN 53 H (9-20) mg/dL POC Glucose (mg/dL) 71 L (75-99) mg/dL Assessment and Plan (1) HTN (hypertension) Status: Acute (2) Chronic a-fib Status: Acute (3) H/O aortic valve replacement Status: Acute (4) Lower extremity ulceration Status: Acute (5) Obesity Status: Acute (6) Diabetes Status: Acute (7) Hyperlipemia Status: Acute Plan: Continue Lasix drip, give one dose of Zaroxolyn 2.5 mg, continue to monitor intake and output along with daily weights. DNP note has been reviewed, I agree with a documented findings and plan of care. Patient was seen and examined.
[2016-08-08 15:52] LABS: Glucose,Whole Blood 87 mg/dL (75-99)
[2016-08-08] MEDS: FUROSEMIDE 250 MG in SODIUM CHLORIDE 0.9% 225 ML IVP SCH (17:10)
[2016-08-08] MEDS: RIVAROXABAN 10 MG TAB PO SCH (17:13)
[2016-08-08 21:00] LABS: Glucose,Whole Blood 122 mg/dL (75-99)
--- NOTE | 2016-08-08 21:15 | P.PN ---
Subjective Principal diagnosis: syncope with lower extremity edema 66-year-old male who is somewhat of a poor historian presents to the physician's office with a complaint of an episode of syncope and increasing weakness. The patient apparently has been ill over the last year with increasing difficulties with fatigue and worsening exercise tolerance. He developed increasing lower extremity edema and ulcerations. He was caring for them with local products at home including baby powder. This was not working and the ulcerations were continuing to increase in number and size. Not until he had the syncopal event at his home where he bruised his left arm that he finally seek care. It appears his 2 brothers helped him seek care. He lives in a home with his 90-year-old mother. The 2 other brothers do help with the overall care such that they do the shopping and help with the cooking. The patient apparently has been medically disabled since his mid 50s. With a Lasix drip there has been a significant improvement of his volume overload. He has a 4 kg decrease in the last day. He is less short of breath and feeling better overall. Lower extremity edema is also improved. The new rashes started in the lower extremities is improving and less uncomfortable today. Objective - Vital Signs Vital signs: Vital Signs Temp 97.7 F 08/08/16 19:47 Pulse 68 08/08/16 19:52 Resp 14 08/08/16 19:52 BP 99/59 08/08/16 19:47 Pulse Ox 92 L 08/08/16 19:47 Intake & Output 08/08/16 08/08/16 08/09/16 06:59 18:59 06:59 Intake Total 1328.75 Output Total 3675 1250 Balance -3675 78.75 Weight 130.7 kg 130.7 kg Intake: Intake, IV Titration 156.75 Amount Furosemide 250 mg In 156.75 Sodium Chloride 0.9% 225 ml @ 5 MG/HR 5 mls/hr IVP .Q24H [facility] Rx#:[id number] Oral 1172 Output: Urine 3675 1250 Other: Voiding Method Urinal # Voids 1 - Exam Obese 66-year-old male seems to be comfortable sitting upright on the bedside. HEENT: Anicteric conjunctiva are pink and moist nasal mucosa grossly intact without significant lesions, there is no thrush. Poor dentition Neck: The neck is supple without significant lymphadenopathy or thyromegaly. Lungs: There is symmetrical air entry, few basilar crackles scattered wheezes without zeus bronchial sounds or egophony being noted Heart: Irregular with an audible S1 and S2. Soft S4 2/6 systolic murmur left sternal border that radiates to the carotid PMI is nondisplaced Abdomen: Obese, Positive bowel sounds soft and nontender without palpable masses or organomegaly. There was no guarding or rebound. Extremities: The upper extremities show evidence of the bruising to the left arm proximal to the elbow, there is evidence of muscular wasting. The lower extremities have evidence of just trace edema at this time. Skin patient is evidence of the multiple full-thickness ulcerations on the bilateral lower extremities with eschar at the base. He does have a few lesions on the abdominal wall on his pannus. The bruises left arm is without any ulceration. Although does have evidence of some rash-like changes of the bilateral upper extremities and he is not clear how long that has been present. The lower extremity ulcerations have been present for at least a year, improving with the Silvadene wrap. However now has evidence of the purpuric rash in the lower extremities from the knee distally. It was improving but on the posterior aspect of the left knee is some increased irritation. Responding to the current steroid therapy that has been started. Neuro: Awake alert oriented to person place and time. Follows simple commands. Appears to have a limited IQ - Labs CBC & Chem 7: 08/08/16 05:54 08/08/16 05:54 Labs: Abnormal Lab Results - Last 24 Hours (Table) 08/07/16 08/08/16 08/08/16 Range/Units 21:08 05:54 05:54 RBC 3.92 L (4.30-5.90) m/uL Hgb 11.4 L (13.0-17.5) gm/dL Hct 38.2 L (39.0-53.0) % MCHC 29.7 L (31.0-37.0) g/dL RDW 16.5 H (11.5-15.5) % Lymphocytes # 0.6 L (1.0-4.8) k/uL PT 21.1 H (9.0-12.0) sec Chloride (98-107) mmol/L BUN (9-20) mg/dL POC Glucose (mg/dL) 131 H (75-99) mg/dL 08/08/16 08/08/16 08/08/16 Range/Units 05:54 11:34 20:58 RBC (4.30-5.90) m/uL Hgb (13.0-17.5) gm/dL Hct (39.0-53.0) % MCHC (31.0-37.0) g/dL RDW (11.5-15.5) % Lymphocytes # (1.0-4.8) k/uL PT (9.0-12.0) sec Chloride 96 L (98-107) mmol/L BUN 53 H (9-20) mg/dL POC Glucose (mg/dL) 71 L 122 H (75-99) mg/dL Laboratory Results WBC 7.4 k/uL (3.8-10.6) 08/08/16 05:54 RBC 3.92 m/uL (4.30-5.90) L 08/08/16 05:54 Hgb 11.4 gm/dL (13.0-17.5) L 08/08/16 05:54 Hct 38.2 % (39.0-53.0) L 08/08/16 05:54 MCV 97.7 fL (80.0-100.0) 08/08/16 05:54 MCH 29.0 pg (25.0-35.0) 08/08/16 05:54 MCHC 29.7 g/dL (31.0-37.0) L 08/08/16 05:54 RDW 16.5 % (11.5-15.5) H 08/08/16 05:54 Plt Count 321 k/uL (150-450) 08/08/16 05:54 Neutrophils % 74 % 08/08/16 05:54 Lymphocytes % 8 % 08/08/16 05:54 Monocytes % 10 % 08/08/16 05:54 Eosinophils % 3 % 08/08/16 05:54 Basophils % 1 % 08/08/16 05:54 Neutrophils # 5.5 k/uL (1.3-7.7) 08/08/16 05:54 Lymphocytes # 0.6 k/uL (1.0-4.8) L 08/08/16 05:54 Monocytes # 0.8 k/uL (0-1.0) 08/08/16 05:54 Eosinophils # 0.2 k/uL (0-0.7) 08/08/16 05:54 Basophils # 0.0 k/uL (0-0.2) 08/08/16 05:54 Hypochromasia Moderate 08/08/16 05:54 Anisocytosis Slight 08/08/16 05:54 Macrocytosis Slight 08/08/16 05:54 ESR 50 mm/hr (0-15) H 07/31/16 05:31 PT 21.1 sec (9.0-12.0) H 08/08/16 05:54 INR 2.2 (<1.1) 08/08/16 05:54 Sodium 139 mmol/L (137-145) 08/08/16 05:54 Potassium 4.6 mmol/L (3.5-5.1) 08/08/16 05:54 Chloride 96 mmol/L (98-107) L 08/08/16 05:54 Carbon Dioxide 29 mmol/L (22-30) 08/08/16 05:54 Anion Gap 14 mmol/L 08/08/16 05:54 BUN 53 mg/dL (9-20) H 08/08/16 05:54 Creatinine 1.16 mg/dL (0.66-1.25) 08/08/16 05:54 Est GFR (MDRD) Af Amer >60 (>60 ml/min/1.73 sqM) 08/08/16 05:54 Est GFR (MDRD) Non-Af >60 (>60 ml/min/1.73 sqM) 08/08/16 05:54 Glucose 95 mg/dL (74-99) 08/08/16 05:54 POC Glucose (mg/dL) 122 mg/dL (75-99) H 08/08/16 20:58 POC Glu [employer]ding [employer] Arc ID Tiffanie Angulo 08/08/16 20:[address] Glu mg/dL 117 mg/dL 07/30/16 13:50 Hemoglobin A1c 5.7 % (4.2-6.1) 07/30/16 13:50 Uric Acid 3.9 mg/dL (3.5-8.5) 08/05/16 05:39 Calcium 10.0 mg/dL (8.4-10.2) 08/08/16 05:54 Magnesium 2.2 mg/dL (1.6-2.3) 08/08/16 05:54 Total Bilirubin 1.7 mg/dL (0.2-1.3) H 08/06/16 05:48 AST 27 U/L (17-59) 08/06/16 05:48 ALT 28 U/L (21-72) 08/06/16 05:48 Alkaline Phosphatase 132 U/L (38-126) H 08/06/16 05:48 C-Reactive Protein 12.9 mg/L (<10.0) H 07/31/16 05:31 NT-Pro-B Natriuret Pep 5800 pg/mL 07/30/16 12:44 Total Protein 7.5 g/dL (6.3-8.2) 08/06/16 05:48 Albumin 3.9 g/dL (3.5-5.0) 08/06/16 05:48 Prealbumin 12 mg/dL (18-36) L 07/31/16 05:31 TSH 4.720 mIU/L (0.465-4.680) H 07/30/16 12:44 Hepatitis A IgM Ab NEGATIVE 07/31/16 05:31 Hep Bs Antigen Negative 07/31/16 05:31 Hep B Core IgM Ab NEGATIVE 07/31/16 05:31 Hep C IgG Ab Negative (Negative) 07/31/16 05:31 Miscellaneous Test PT/INR 08/06/16 05:48 Misc Test Result 08/06/16 05:48 Microbiology 07/30/16 17:47 Leg - Right Gram Stain - Final 07/30/16 17:47 Leg - Right Wound Culture - Final Staphylococcus aureus Strep pyogenes (grp a) Assessment and Plan (1) Lower extremity ulceration Narrative/Plan: 66-year-old male who has a history of significant underlying medical issues including aortic valve replacement and a recent bout of syncope. He relates to about a one-year history of ulcerations to his bilateral lower extremities have been worsening over time. Is doing some in-home care such as local creams and baby powder which has not helped the ulcers improved. Because of the syncopal event in his worsening functional status he was brought to Hospital with concerns to worsening of congestive heart failure. Echocardiogram has been ordered as has carotid Dopplers. These are pending at this time. The patient is evidence of chronic lower extremity ulcerations and arterial Dopplers are in process and awaited but the venous studies show notice any deep venous thrombosis In the meantime cultures obtained and local wound care with Silvadene and a light wrap will be applied. The patient was concerned that he could be at risk for losing his legs. We discussed at the moment that workup is needed but he does not have evidence of gangrenous changes necessitating amputation at this time. His diabetes appears to be well controlled Evaluation of his cardiovascular status is in process to evaluate impact of his cardiovascular status on his lower extremities. Given his obesity and abnormal liver functions hepatitis panel was checked and is negative for viral hepatitis. Culture did show evidence of MSSA as well as strep and cefazolin 2 g IV piggyback every 8 hours in use. Continue local wound care with Silvadene and wraps and elevation. Continue with treatment for his volume overload. Since the ulceration is improving now on cefuroxime 500 mg every 12 hours. The current skin eruption was thought to be due to his Coumadin therapy. To the area that is more irritated is being treated with some topical triamcinolone. It is limited to the lower extremities. The extensive volume overload is improving with the Lasix drip. Status: Acute (2) H/O aortic valve replacement Status: Acute (3) Warfarin-induced coagulopathy Status: Acute (4) Obesity Status: Acute
[2016-08-09 06:16] LABS: Glucose,Whole Blood 90 mg/dL (75-99)
[2016-08-09] MEDS: INSULIN LISPRO (humaLOG) 300 UNIT/3 ML VIAL SQ SCH ×4 (06:22→22:16)
[2016-08-09 06:31] LABS: Anisocytosis Slight; Aty Lym Flag Slight; Basophils % (A) 0 %; CH 30.3; CHCM 31.6; Eosinophils # (A) 0.3 k/uL (0-0.7); Eosinophils % (A) 3 %; HCT 36.2 % (39.0-53.0); HDW 2.86; HGB 11.1 gm/dL (13.0-17.5); Hypochromasia Slight; Luc # (Auto) 0.37; Luc % (Auto) 5; Lymphocytes # (A) 0.7 k/uL (1.0-4.8); Lymphocytes % (A) 9 %; MCH 29.6 pg (25.0-35.0); MCHC 30.8 g/dL (31.0-37.0); MCV 96.2 fL (80.0-100.0); Mean Platelet Volume 7.1; Monocytes # (A) 0.7 k/uL (0-1.0); Monocytes % (A) 10 %; Neutrophils # (A) 5.7 k/uL (1.3-7.7); Neutrophils % (A) 73 %; RBC 3.76 m/uL (4.30-5.90); RDW 16.5 % (11.5-15.5); WBC 7.8 k/uL (3.8-10.6); WBC (Perox) 8.22
[2016-08-09] MEDS: GLIMEPIRIDE 1 MG TAB PO SCH (06:39)
[2016-08-09] MEDS: LEVOTHYROXINE 25 MCG TAB PO SCH (06:39)
[2016-08-09 06:44] LABS: INR 1.8 (<1.1); Prothrombin Time 17.8 sec (9.0-12.0)
[2016-08-09 06:46] LABS: Anion Gap 13 mmol/L; Blood Urea Nitrogen 66 mg/dL (9-20); Calcium 10.2 mg/dL (8.4-10.2); Carbon Dioxide 33 mmol/L (22-30); Chloride 93 mmol/L (98-107); Glucose 84 mg/dL (74-99); Magnesium 2.2 mg/dL (1.6-2.3); Non-African American GFR(MDRD) 54 (>60 ml/min/1.73 sqM); Potassium 4.7 mmol/L (3.5-5.1); Sodium 139 mmol/L (137-145)
[2016-08-09] MEDS: SILVER sulfADIAZINE Cream 400 GM 1 APPLIC APPLIC TOPICAL SCH ×2 (06:46→22:24)
[2016-08-09] MEDS: TRIAMCINOLONE 0.1% CREAM 80 GM TUBE TOPICAL SCH ×3 (06:47→22:24)
[2016-08-09] MEDS: ATORVASTATIN 20 MG TAB PO SCH (09:04)
[2016-08-09] MEDS: SPIRONOLACTONE 25 MG TAB PO SCH (09:04)
[2016-08-09] MEDS: METOPROLOL TARTRATE 50 MG TAB PO SCH ×2 (09:04→22:21)
[2016-08-09] MEDS: LISINOPRIL 20 MG TAB PO SCH (09:04)
[2016-08-09] MEDS: CEFUROXIME 250 MG TAB PO SCH ×2 (09:04→22:22)
[2016-08-09] MEDS: HYDROcodone/APAP 5-325MG 1 EACH TAB PO PRN ×3 (09:10→22:22)
[2016-08-09] MEDS: diphenhydrAMINE 25 MG CAP PO PRN ×3 (09:10→22:22)
[2016-08-09 11:42] LABS: Glucose,Whole Blood 84 mg/dL (75-99)
[2016-08-09] MEDS ORDERED: ERGOCALCIFEROL 50,000 UNIT CAP PO SCH (12:00)
--- NOTE | 2016-08-09 12:49 | P.PN ---
Subjective Acute congestive heart failure exacerbation Patient is a 66-year-old male with known history of aortic valve replacement and history of cardiomyopathy who was admitted to [facility] with multiple medical problems including syncopal episode, worsening shortness of breath with evidence of acute exacerbation of congestive heart failure, bilateral lower extremity cellulitis with large ulcerations on bilateral pretibial areas. He was admitted to telemetry floor he was started on IV Lasix he was seen by cardiology and by infectious disease. Patient does note some mild improvement in the lower extremity edema. He has been on IV Lasix drip. Denies any chest pain or shortness breath. Denies any nausea or vomiting. He has been having bowel movements. Denies any difficulty urinating. 08/09/2016 patient has had weight loss. Weight has gone from 130.7 down to 127.5 kg. Currently remains on IV Lasix drip and Zaroxolyn. Followed by cardiology. Patient denies any chest pain or shortness breath. Denies any nausea vomiting. He reports having bowel movements. Denies a difficulty urinating. Did have hypoglycemia yesterday and today. Glipizide will be discontinued. To sliding scale. Objective - Vital Signs Vital signs: Vital Signs Temp 96.4 F L 08/09/16 08:00 Pulse 81 08/09/16 08:00 Resp 18 08/09/16 08:00 BP 103/58 08/09/16 08:00 Pulse Ox 90 L 08/09/16 08:00 Intake & Output 08/08/16 08/09/16 08/09/16 18:59 06:59 18:59 Intake Total 1328.75 250 2508 Output Total 1250 2997 750 Balance 78.75 -2747 1758 Weight 130.7 kg 127.5 kg Intake: Intake, IV Titration 156.75 Amount Furosemide 250 mg In 156.75 Sodium Chloride 0.9% 225 ml @ 5 MG/HR 5 mls/hr IVP .Q24H [facility] Rx#:[id number] Oral [id number] Output: Urine 1250 2975 750 Post Void Residual 22 Other: Voiding Method Urinal # Voids 5 0 - Exam Head normocephalic Neck supple Lungs crackles at bases Heart regular rate and rhythm S1-S2, no rub or gallop Abdomen is soft nontender nondistended positive bowel sounds no hepatosplenomegaly Extremities legs are Van wrapped. 2+ edema. Some mild improvement in swelling. Still having evidence of purpura. And large ulcers lower extremities. Neuro alert and orientated to 3 - Labs CBC & Chem 7: 08/09/16 05:29 08/09/16 05:29 Labs: Abnormal Lab Results - Last 24 Hours (Table) 08/08/16 08/09/16 08/09/16 Range/Units 20:58 05:29 05:29 RBC 3.76 L (4.30-5.90) m/uL Hgb 11.1 L (13.0-17.5) gm/dL Hct 36.2 L (39.0-53.0) % MCHC 30.8 L (31.0-37.0) g/dL RDW 16.5 H (11.5-15.5) % Lymphocytes # 0.7 L (1.0-4.8) k/uL PT 17.8 H (9.0-12.0) sec Chloride (98-107) mmol/L Carbon Dioxide (22-30) mmol/L BUN (9-20) mg/dL Creatinine (0.66-1.25) mg/dL POC Glucose (mg/dL) 122 H (75-99) mg/dL 08/09/16 Range/Units 05:29 RBC (4.30-5.90) m/uL Hgb (13.0-17.5) gm/dL Hct (39.0-53.0) % MCHC (31.0-37.0) g/dL RDW (11.5-15.5) % Lymphocytes # (1.0-4.8) k/uL PT (9.0-12.0) sec Chloride 93 L (98-107) mmol/L Carbon Dioxide 33 H (22-30) mmol/L BUN 66 H (9-20) mg/dL Creatinine 1.32 H (0.66-1.25) mg/dL POC Glucose (mg/dL) (75-99) mg/dL Assessment and Plan Plan: #1 worsening dyspnea, secondary to acute diastolic congestive heart failure exacerbation, echocardiogram showed preserved ejection fraction of 50-55%. Elevated right ventricular and diastolic pressure with diastolic dysfunction. Patient currently on IV Lasix drip and Zaroxolyn. Cardiology following. Patient did have weight loss #2 severe pulmonary hypertension and cor pulmonale with diffuse anasarca: #3 coagulopathy, Coumadin was discontinued. Patient was switched to Xarelto #4 bilateral lower extremity cellulitis was large ulcers, infectious disease consultation was requested, antibiotic switched to oral. Doppler ultrasound negative for DVT . Currently on Ceftin. Encouraged patient to keep legs elevated. Followed by infectious disease. Arterial Doppler was normal #5 underlying history of [id number]-[id number] diabetes mellitus. Episodes of hypoglycemia. A blood sugar of 90 this morning and 70 yesterday. Glipizide will be discontinued. Continue with sliding still coverage for now #6 underlying history of gout continue allopurinol #7 bilateral lower extremity purpura likely related to Coumadin #8 syncopal episode prior to admission
[2016-08-09] MEDS: FUROSEMIDE 250 MG in SODIUM CHLORIDE 0.9% 225 ML IVP SCH (13:40)
--- NOTE | 2016-08-09 16:17 | P.PN ---
Subjective Principal diagnosis: Dyspnea This is a 66-year-old gentleman with known history of bicuspid aortic valve, status post aortic valve replacement, history of cardiomyopathy in the past , atrial fibrillation, who presented to the hospital with ulcerations and edema in the lower extremities as well as associated dyspnea. A repeat echocardiogram with Doppler study was performed this admission which revealed a normal left ventricular systolic function. Blood pressure today 100/80 with a heart rate of 60. Hemoglobin 11.1, platelet count 319, potassium 4.7, , BUN 66 , creatinine 1.3. Patient was seen and examined this morning, overall doing much better. Edema is improving. Breathing is improving. Weight down 3 kg. we will discontinue the IV Lasix drip and start the patient on Lasix 40 mg IV twice a day. Check lytes BUN and creatinine in the morning. Objective - Vital Signs Vital signs: Vital Signs Temp 96.4 F L 08/09/16 12:00 Pulse 61 08/09/16 12:00 Resp 18 08/09/16 12:00 BP 99/59 08/09/16 12:00 Pulse Ox 93 L 08/09/16 12:00 Intake & Output 08/08/16 08/09/16 08/09/16 18:59 06:59 18:59 Intake Total 1328.75 250 2730.5 Output Total 1250 2997 1550 Balance 78.75 -2747 1180.5 Weight 130.7 kg 127.5 kg Intake: Intake, IV Titration 156.75 102.5 Amount Furosemide 250 mg In 156.75 102.5 Sodium Chloride 0.9% 225 ml @ 5 MG/HR 5 mls/hr IVP .Q24H [facility] Rx#:[id number] Oral [id number] Output: Urine 1250 2975 1550 Post Void Residual 22 Other: Voiding Method Urinal # Voids 5 0 - Exam PHYSICAL EXAMINATION: HEENT: Head is atraumatic, normocephalic. Pupils equal, round. Neck is supple. There is no elevated jugular venous pressure. HEART EXAMINATION: Heart S1 and S2 irregularly irregular, systolic murmur is CHEST EXAMINATION: Lungs reveal improvement in air exchange bilaterally. ABDOMEN: Soft, obese, nontender. Bowel sounds are heard. No organomegaly noted. EXTREMITIES: 1+ peripheral pulses with trace to 1+ evidence of peripheral edema and no calf tenderness noted. Evidence of bilateral ulcerations NEUROLOGIC patient is awake, alert and oriented -3. . - Labs CBC & Chem 7: 08/09/16 05:29 08/09/16 05:29 Labs: Abnormal Lab Results - Last 24 Hours (Table) 08/08/16 08/09/16 08/09/16 Range/Units 20:58 05:29 05:29 RBC 3.76 L (4.30-5.90) m/uL Hgb 11.1 L (13.0-17.5) gm/dL Hct 36.2 L (39.0-53.0) % MCHC 30.8 L (31.0-37.0) g/dL RDW 16.5 H (11.5-15.5) % Lymphocytes # 0.7 L (1.0-4.8) k/uL PT 17.8 H (9.0-12.0) sec Chloride (98-107) mmol/L Carbon Dioxide (22-30) mmol/L BUN (9-20) mg/dL Creatinine (0.66-1.25) mg/dL POC Glucose (mg/dL) 122 H (75-99) mg/dL 08/09/16 Range/Units 05:29 RBC (4.30-5.90) m/uL Hgb (13.0-17.5) gm/dL Hct (39.0-53.0) % MCHC (31.0-37.0) g/dL RDW (11.5-15.5) % Lymphocytes # (1.0-4.8) k/uL PT (9.0-12.0) sec Chloride 93 L (98-107) mmol/L Carbon Dioxide 33 H (22-30) mmol/L BUN 66 H (9-20) mg/dL Creatinine 1.32 H (0.66-1.25) mg/dL POC Glucose (mg/dL) (75-99) mg/dL Assessment and Plan (1) HTN (hypertension) Status: Acute (2) Chronic a-fib Status: Acute (3) H/O aortic valve replacement Status: Acute (4) Lower extremity ulceration Status: Acute (5) Obesity Status: Acute (6) Diabetes Status: Acute (7) Hyperlipemia Status: Acute Plan: From cardiology's perspective, we'll discontinue IV Lasix drip and start the patient on Lasix 40 mg IV twice a day check lytes BUN and creatinine in the morning. DNP note has been reviewed, I agree with a documented findings and plan of care. Patient was seen and examined.
[2016-08-09 16:55] LABS: Glucose,Whole Blood 74 mg/dL (75-99)
[2016-08-09] MEDS: RIVAROXABAN 10 MG TAB PO SCH (17:01)
--- NOTE | 2016-08-09 20:57 | P.PN ---
Subjective Principal diagnosis: syncope with lower extremity edema 66-year-old male who is somewhat of a poor historian presents to the physician's office with a complaint of an episode of syncope and increasing weakness. The patient apparently has been ill over the last year with increasing difficulties with fatigue and worsening exercise tolerance. He developed increasing lower extremity edema and ulcerations. He was caring for them with local products at home including baby powder. This was not working and the ulcerations were continuing to increase in number and size. Not until he had the syncopal event at his home where he bruised his left arm that he finally seek care. It appears his 2 brothers helped him seek care. He lives in a home with his 90-year-old mother. The 2 other brothers do help with the overall care such that they do the shopping and help with the cooking. The patient apparently has been medically disabled since his mid 50s. With a Lasix drip there has been a significant improvement of his volume overload. He has a 3 kg decrease in the last day. He is less short of breath and feeling better overall. Lower extremity edema is also improved. The new rashes started in the lower extremities is improving and less uncomfortable today. Objective - Vital Signs Vital signs: Vital Signs Temp 97.8 F 08/09/16 16:00 Pulse 64 08/09/16 16:00 Resp 18 08/09/16 16:00 BP 117/66 08/09/16 16:00 Pulse Ox 97 08/09/16 16:00 Intake & Output 08/09/16 08/09/16 08/10/16 06:59 18:59 06:59 Intake Total 250 3322.5 Output Total 2997 1775 Balance -2747 1547.5 Weight 127.5 kg Intake: Intake, IV Titration 102.5 Amount Furosemide 250 mg In 102.5 Sodium Chloride 0.9% 225 ml @ 5 MG/HR 5 mls/hr IVP .Q24H [facility] Rx#:[id number] Oral 250 3220 Output: Urine 2975 1775 Post Void Residual 22 Other: Voiding Method Urinal # Voids 5 0 - Exam Obese 66-year-old male seems to be comfortable sitting upright on the bedside. HEENT: Anicteric conjunctiva are pink and moist nasal mucosa grossly intact without significant lesions, there is no thrush. Poor dentition Neck: The neck is supple without significant lymphadenopathy or thyromegaly. Lungs: There is symmetrical air entry, few basilar crackles scattered wheezes without zeus bronchial sounds or egophony being noted Heart: Irregular with an audible S1 and S2. Soft S4 2/6 systolic murmur left sternal border that radiates to the carotid PMI is nondisplaced Abdomen: Obese, Positive bowel sounds soft and nontender without palpable masses or organomegaly. There was no guarding or rebound. Extremities: The upper extremities show evidence of the bruising to the left arm proximal to the elbow, there is evidence of muscular wasting. The lower extremities have evidence of just trace edema at this time. Skin patient is evidence of the multiple full-thickness ulcerations on the bilateral lower extremities with eschar at the base. He does have a few lesions on the abdominal wall on his pannus. The bruises left arm is without any ulceration. Although does have evidence of some rash-like changes of the bilateral upper extremities and he is not clear how long that has been present. The lower extremity ulcerations have been present for at least a year, improving with the Silvadene wrap. However now has evidence of the purpuric rash in the lower extremities from the knee distally. It was improving but on the posterior aspect of the left knee is some increased irritation. Responding to the current steroid therapy that has been started. Neuro: Awake alert oriented to person place and time. Follows simple commands. Appears to have a limited IQ - Labs CBC & Chem 7: 08/09/16 05:29 08/09/16 05:29 Labs: Abnormal Lab Results - Last 24 Hours (Table) 08/08/16 08/09/16 08/09/16 Range/Units 20:58 05:29 05:29 RBC 3.76 L (4.30-5.90) m/uL Hgb 11.1 L (13.0-17.5) gm/dL Hct 36.2 L (39.0-53.0) % MCHC 30.8 L (31.0-37.0) g/dL RDW 16.5 H (11.5-15.5) % Lymphocytes # 0.7 L (1.0-4.8) k/uL PT 17.8 H (9.0-12.0) sec Chloride (98-107) mmol/L Carbon Dioxide (22-30) mmol/L BUN (9-20) mg/dL Creatinine (0.66-1.25) mg/dL POC Glucose (mg/dL) 122 H (75-99) mg/dL 08/09/16 08/09/16 Range/Units 05:29 16:52 RBC (4.30-5.90) m/uL Hgb (13.0-17.5) gm/dL Hct (39.0-53.0) % MCHC (31.0-37.0) g/dL RDW (11.5-15.5) % Lymphocytes # (1.0-4.8) k/uL PT (9.0-12.0) sec Chloride 93 L (98-107) mmol/L Carbon Dioxide 33 H (22-30) mmol/L BUN 66 H (9-20) mg/dL Creatinine 1.32 H (0.66-1.25) mg/dL POC Glucose (mg/dL) 74 L (75-99) mg/dL Laboratory Results WBC 7.8 k/uL (3.8-10.6) 08/09/16 05:29 RBC 3.76 m/uL (4.30-5.90) L 08/09/16 05:29 Hgb 11.1 gm/dL (13.0-17.5) L 08/09/16 05:29 Hct 36.2 % (39.0-53.0) L 08/09/16 05:29 MCV 96.2 fL (80.0-100.0) 08/09/16 05:29 MCH 29.6 pg (25.0-35.0) 08/09/16 05:29 MCHC 30.8 g/dL (31.0-37.0) L 08/09/16 05:29 RDW 16.5 % (11.5-15.5) H 08/09/16 05:29 Plt Count 319 k/uL (150-450) 08/09/16 05:29 Neutrophils % 73 % 08/09/16 05:29 Lymphocytes % 9 % 08/09/16 05:29 Monocytes % 10 % 08/09/16 05:29 Eosinophils % 3 % 08/09/16 05:29 Basophils % 0 % 08/09/16 05:29 Neutrophils # 5.7 k/uL (1.3-7.7) 08/09/16 05:29 Lymphocytes # 0.7 k/uL (1.0-4.8) L 08/09/16 05:29 Monocytes # 0.7 k/uL (0-1.0) 08/09/16 05:29 Eosinophils # 0.3 k/uL (0-0.7) 08/09/16 05:29 Basophils # 0.0 k/uL (0-0.2) 08/09/16 05:29 Hypochromasia Slight 08/09/16 05:29 Anisocytosis Slight 08/09/16 05:29 Macrocytosis Slight 08/08/16 05:54 ESR 50 mm/hr (0-15) H 07/31/16 05:31 PT 17.8 sec (9.0-12.0) H 08/09/16 05:29 INR 1.8 (<1.1) 08/09/16 05:29 Sodium 139 mmol/L (137-145) 08/09/16 05:29 Potassium 4.7 mmol/L (3.5-5.1) 08/09/16 05:29 Chloride 93 mmol/L (98-107) L 08/09/16 05:29 Carbon Dioxide 33 mmol/L (22-30) H 08/09/16 05:29 Anion Gap 13 mmol/L 08/09/16 05:29 BUN 66 mg/dL (9-20) H 08/09/16 05:29 Creatinine 1.32 mg/dL (0.66-1.25) H 08/09/16 05:29 Est GFR (MDRD) Af Amer >60 (>60 ml/min/1.73 sqM) 08/09/16 05:29 Est GFR (MDRD) Non-Af 54 (>60 ml/min/1.73 sqM) 08/09/16 05:29 Glucose 84 mg/dL (74-99) 08/09/16 05:29 POC Glucose (mg/dL) 74 mg/dL (75-99) L 08/09/16 16:52 POC Glu [employer] Professor ID Rebekah Hanson 08/09/16 16:[address] Glu mg/dL 117 mg/dL 07/30/16 13:50 Hemoglobin A1c 5.7 % (4.2-6.1) 07/30/16 13:50 Uric Acid 3.9 mg/dL (3.5-8.5) 08/05/16 05:39 Calcium 10.2 mg/dL (8.4-10.2) 08/09/16 05:29 Magnesium 2.2 mg/dL (1.6-2.3) 08/09/16 05:29 Total Bilirubin 1.7 mg/dL (0.2-1.3) H 08/06/16 05:48 AST 27 U/L (17-59) 08/06/16 05:48 ALT 28 U/L (21-72) 08/06/16 05:48 Alkaline Phosphatase 132 U/L (38-126) H 08/06/16 05:48 C-Reactive Protein 12.9 mg/L (<10.0) H 07/31/16 05:31 NT-Pro-B Natriuret Pep 5800 pg/mL 07/30/16 12:44 Total Protein 7.5 g/dL (6.3-8.2) 08/06/16 05:48 Albumin 3.9 g/dL (3.5-5.0) 08/06/16 05:48 Prealbumin 12 mg/dL (18-36) L 07/31/16 05:31 TSH 4.720 mIU/L (0.465-4.680) H 07/30/16 12:44 Hepatitis A IgM Ab NEGATIVE 07/31/16 05:31 Hep Bs Antigen Negative 07/31/16 05:31 Hep B Core IgM Ab NEGATIVE 07/31/16 05:31 Hep C IgG Ab Negative (Negative) 07/31/16 05:31 Miscellaneous Test PT/INR 08/06/16 05:48 Misc Test Result 08/06/16 05:48 Microbiology 07/30/16 17:47 Leg - Right Gram Stain - Final 07/30/16 17:47 Leg - Right Wound Culture - Final Staphylococcus aureus Strep pyogenes (grp a) Assessment and Plan (1) Lower extremity ulceration Narrative/Plan: 66-year-old male who has a history of significant underlying medical issues including aortic valve replacement and a recent bout of syncope. He relates to about a one-year history of ulcerations to his bilateral lower extremities have been worsening over time. Is doing some in-home care such as local creams and baby powder which has not helped the ulcers improved. Because of the syncopal event in his worsening functional status he was brought to Hospital with concerns to worsening of congestive heart failure. Echocardiogram has been ordered as has carotid Dopplers. These are pending at this time. The patient is evidence of chronic lower extremity ulcerations and arterial Dopplers are in process and awaited but the venous studies show notice any deep venous thrombosis In the meantime cultures obtained and local wound care with Silvadene and a light wrap will be applied. The patient was concerned that he could be at risk for losing his legs. We discussed at the moment that workup is needed but he does not have evidence of gangrenous changes necessitating amputation at this time. His diabetes appears to be well controlled Evaluation of his cardiovascular status is in process to evaluate impact of his cardiovascular status on his lower extremities. Given his obesity and abnormal liver functions hepatitis panel was checked and is negative for viral hepatitis. Culture did show evidence of MSSA as well as strep and cefazolin 2 g IV piggyback every 8 hours in use. Continue local wound care with Silvadene and wraps and elevation. Continue with treatment for his volume overload. Since the ulceration is improving now on cefuroxime 500 mg every 12 hours. The current skin eruption was thought to be due to his Coumadin therapy. To the area that is more irritated is being treated with some topical triamcinolone. It is limited to the lower extremities. The extensive volume overload is improving with the Lasix drip. Status: Acute (2) H/O aortic valve replacement Status: Acute (3) Warfarin-induced coagulopathy Status: Acute (4) Obesity Status: Acute
[2016-08-09 22:05] LABS: Glucose,Whole Blood 123 mg/dL (75-99)
[2016-08-10] MEDS: HYDROcodone/APAP 5-325MG 1 EACH TAB PO PRN ×3 (03:34→21:40)
[2016-08-10] MEDS: LEVOTHYROXINE 25 MCG TAB PO SCH (06:22)
[2016-08-10] MEDS: diphenhydrAMINE 25 MG CAP PO PRN ×3 (06:22→21:41)
[2016-08-10 06:56] LABS: Anisocytosis Slight; Basophils % (A) 1 %; CH 30.1; CHCM 31.4; Eosinophils # (A) 0.3 k/uL (0-0.7); Eosinophils % (A) 4 %; HDW 2.78; Hypochromasia Slight; Luc # (Auto) 0.28; Luc % (Auto) 4; Lymphocytes # (A) 0.6 k/uL (1.0-4.8); Lymphocytes % (A) 8 %; MCH 29.6 pg (25.0-35.0); MCHC 30.6 g/dL (31.0-37.0); MCV 96.5 fL (80.0-100.0); Mean Platelet Volume 6.9; Monocytes # (A) 0.6 k/uL (0-1.0); Monocytes % (A) 8 %; Neutrophils # (A) 5.7 k/uL (1.3-7.7); Neutrophils % (A) 76 %; RBC 3.74 m/uL (4.30-5.90); RDW 16.2 % (11.5-15.5); WBC 7.4 k/uL (3.8-10.6); WBC (Perox) 7.92
[2016-08-10] MEDS: INSULIN LISPRO (humaLOG) 300 UNIT/3 ML VIAL SQ SCH ×4 (06:58→21:36)
[2016-08-10 07:04] LABS: Glucose,Whole Blood 79 mg/dL (75-99)
[2016-08-10 07:12] LABS: Magnesium 2.2 mg/dL (1.6-2.3); Potassium 4.8 mmol/L (3.5-5.1)
[2016-08-10 07:30] LABS: INR 1.9 (<1.1); Prothrombin Time 18.7 sec (9.0-12.0)
[2016-08-10] MEDS: METOPROLOL TARTRATE 50 MG TAB PO SCH ×2 (08:17→21:22)
[2016-08-10] MEDS: CEFUROXIME 250 MG TAB PO SCH ×2 (08:18→21:22)
[2016-08-10] MEDS: SPIRONOLACTONE 25 MG TAB PO SCH (08:18)
[2016-08-10] MEDS: ATORVASTATIN 20 MG TAB PO SCH (08:18)
[2016-08-10] MEDS: LISINOPRIL 20 MG TAB PO SCH (08:22)
[2016-08-10] MEDS: SILVER sulfADIAZINE Cream 400 GM 1 APPLIC APPLIC TOPICAL SCH ×2 (08:27→21:24)
[2016-08-10] MEDS: TRIAMCINOLONE 0.1% CREAM 80 GM TUBE TOPICAL SCH ×3 (08:27→21:24)
[2016-08-10 11:41] LABS: Glucose,Whole Blood 92 mg/dL (75-99)
--- NOTE | 2016-08-10 12:47 | P.PN ---
Subjective Acute congestive heart failure exacerbation Patient is a 66-year-old male with known history of aortic valve replacement and history of cardiomyopathy who was admitted to [facility] with multiple medical problems including syncopal episode, worsening shortness of breath with evidence of acute exacerbation of congestive heart failure, bilateral lower extremity cellulitis with large ulcerations on bilateral pretibial areas. He was admitted to telemetry floor he was started on IV Lasix he was seen by cardiology and by infectious disease. Patient does note some mild improvement in the lower extremity edema. He has been on IV Lasix drip. Denies any chest pain or shortness breath. Denies any nausea or vomiting. He has been having bowel movements. Denies any difficulty urinating. 08/09/2016 patient has had weight loss. Weight has gone from 130.7 down to 127.5 kg. Currently remains on IV Lasix drip and Zaroxolyn. Followed by cardiology. Patient denies any chest pain or shortness breath. Denies any nausea vomiting. He reports having bowel movements. Denies a difficulty urinating. Did have hypoglycemia yesterday and today. Glipizide will be discontinued. To sliding scale. 08/10/2016 patient has had further weight loss he is at 124 kg. Currently on Lasix drip. Creatinine is climbing up at 1.44. Patient has some decrease in his lower extremity swelling. Denies any chest pain or short of breath. Denies any nausea or vomiting. Denies any bowel movement changes or urinary symptoms Objective - Vital Signs Vital signs: Vital Signs Temp 97.4 F L 08/10/16 08:00 Pulse 81 08/10/16 08:00 Resp 16 08/10/16 08:00 BP 114/74 08/10/16 08:00 Pulse Ox 94 L 08/10/16 08:00 Intake & Output 08/09/16 08/10/16 08/10/16 18:59 06:59 18:59 Intake Total 3322.5 Output Total 1775 1000 Balance 1547.5 -1000 Weight 124 kg Intake: Intake, IV Titration 102.5 Amount Furosemide 250 mg In 102.5 Sodium Chloride 0.9% 225 ml @ 5 MG/HR 5 mls/hr IVP .Q24H [facility] Rx#:[id number] Oral 3220 Output: Urine 1775 1000 Other: Voiding Method Urinal Urinal # Voids 0 1 - Exam Head normocephalic Neck supple Lungs crackles at bases Heart regular rate and rhythm S1-S2, no rub or gallop Abdomen is soft nontender nondistended positive bowel sounds no hepatosplenomegaly Extremities legs are Van wrapped. 2+ edema. Some mild improvement in swelling. Still having evidence of purpura. And large ulcers lower extremities. Neuro alert and orientated to 3 - Labs CBC & Chem 7: 08/10/16 06:34 08/10/16 06:34 Labs: Abnormal Lab Results - Last 24 Hours (Table) 08/09/16 08/09/16 08/10/16 Range/Units 16:52 21:52 06:34 RBC 3.74 L (4.30-5.90) m/uL Hgb 11.0 L (13.0-17.5) gm/dL Hct 36.0 L (39.0-53.0) % MCHC 30.6 L (31.0-37.0) g/dL RDW 16.2 H (11.5-15.5) % Lymphocytes # 0.6 L (1.0-4.8) k/uL PT (9.0-12.0) sec Chloride (98-107) mmol/L Carbon Dioxide (22-30) mmol/L BUN (9-20) mg/dL Creatinine (0.66-1.25) mg/dL POC Glucose (mg/dL) 74 L 123 H (75-99) mg/dL 08/10/16 08/10/16 Range/Units 06:34 06:34 RBC (4.30-5.90) m/uL Hgb (13.0-17.5) gm/dL Hct (39.0-53.0) % MCHC (31.0-37.0) g/dL RDW (11.5-15.5) % Lymphocytes # (1.0-4.8) k/uL PT 18.7 H (9.0-12.0) sec Chloride 91 L (98-107) mmol/L Carbon Dioxide 33 H (22-30) mmol/L BUN 73 H (9-20) mg/dL Creatinine 1.44 H (0.66-1.25) mg/dL POC Glucose (mg/dL) (75-99) mg/dL Assessment and Plan Plan: #1 worsening dyspnea, secondary to acute diastolic congestive heart failure exacerbation, echocardiogram showed preserved ejection fraction of 50-55%. Elevated right ventricular and diastolic pressure with diastolic dysfunction. Patient currently on IV Lasix drip and Zaroxolyn. Cardiology following. Patient did have weight loss. We'll await further conditions per cardiology in regards to the Lasix drip #2 severe pulmonary hypertension and cor pulmonale with diffuse anasarca: #3 coagulopathy, Coumadin was discontinued. Patient was switched to Xarelto for his atrial fibrillation #4 bilateral lower extremity cellulitis was large ulcers, infectious disease consultation was requested, antibiotic switched to oral. Doppler ultrasound negative for DVT . Currently on Ceftin. Encouraged patient to keep legs elevated. Followed by infectious disease. Arterial Doppler was normal #5 underlying history of [id number] diabetes mellitus. Episodes of hypoglycemia have shown improvement with the discontinuing the glipizide. Continue sliding coverage as needed #6 underlying history of gout continue allopurinol #7 bilateral lower extremity purpura likely related to Coumadin #8 syncopal episode prior to admission
[2016-08-10] MEDS: FUROSEMIDE 40 MG TAB PO SCH (15:48)
[2016-08-10 16:49] LABS: Glucose,Whole Blood 109 mg/dL (75-99)
[2016-08-10] MEDS: RIVAROXABAN 10 MG TAB PO SCH (17:24)
--- NOTE | 2016-08-10 18:07 | P.PN ---
Subjective Principal diagnosis: syncope with lower extremity edema 66-year-old male who is somewhat of a poor historian presents to the physician's office with a complaint of an episode of syncope and increasing weakness. The patient apparently has been ill over the last year with increasing difficulties with fatigue and worsening exercise tolerance. He developed increasing lower extremity edema and ulcerations. He was caring for them with local products at home including baby powder. This was not working and the ulcerations were continuing to increase in number and size. Not until he had the syncopal event at his home where he bruised his left arm that he finally seek care. It appears his 2 brothers helped him seek care. He lives in a home with his 90-year-old mother. The 2 other brothers do help with the overall care such that they do the shopping and help with the cooking. The patient apparently has been medically disabled since his mid 50s. With a Lasix drip there has been a significant improvement of his volume overload. He has a 8lb decrease in the last day. He is less short of breath and feeling better overall. Lower extremity edema is also improved. The new rashes started in the lower extremities is improving and less uncomfortable today. Objective - Vital Signs Vital signs: Vital Signs Temp 96.4 F L 08/10/16 15:18 Pulse 68 08/10/16 15:18 Resp 18 08/10/16 15:18 BP 115/59 08/10/16 15:18 Pulse Ox 94 L 08/10/16 15:18 Intake & Output 08/09/16 08/10/16 08/10/16 18:59 06:59 18:59 Intake Total 3322.5 240 Output Total 1775 1000 575 Balance 1547.5 -1000 -335 Weight 124 kg Intake: Intake, IV Titration 102.5 Amount Furosemide 250 mg In 102.5 Sodium Chloride 0.9% 225 ml @ 5 MG/HR 5 mls/hr IVP .Q24H [facility] Rx#:[id number] Oral 3220 240 Output: Urine 1775 1000 575 Other: Voiding Method Urinal Urinal # Voids 0 1 - Exam Obese 66-year-old male seems to be comfortable sitting upright on the bedside. HEENT: Anicteric conjunctiva are pink and moist nasal mucosa grossly intact without significant lesions, there is no thrush. Poor dentition Neck: The neck is supple without significant lymphadenopathy or thyromegaly. Lungs: There is symmetrical air entry, few basilar crackles scattered wheezes without zeus bronchial sounds or egophony being noted Heart: Irregular with an audible S1 and S2. Soft S4 2/6 systolic murmur left sternal border that radiates to the carotid PMI is nondisplaced Abdomen: Obese, Positive bowel sounds soft and nontender without palpable masses or organomegaly. There was no guarding or rebound. Extremities: The upper extremities show evidence of the bruising to the left arm proximal to the elbow, there is evidence of muscular wasting. The lower extremities have evidence of just trace edema at this time. Skin patient is evidence of the multiple full-thickness ulcerations on the bilateral lower extremities with eschar at the base. He does have a few lesions on the abdominal wall on his pannus. The bruises left arm is without any ulceration. Although does have evidence of some rash-like changes of the bilateral upper extremities and he is not clear how long that has been present. The lower extremity ulcerations have been present for at least a year, improving with the Silvadene wrap. The eschars are showing some softening. Attempts to start remove the eschars resulted in too much pain. We'll need more time with wraps. However now has evidence of the purpuric rash in the lower extremities from the knee distally. It was improving but on the posterior aspect of the left knee is some increased irritation. Responding to the current steroid therapy that has been started. Neuro: Awake alert oriented to person place and time. Follows simple commands. Appears to have a limited IQ - Labs CBC & Chem 7: 08/10/16 06:34 08/10/16 06:34 Labs: Abnormal Lab Results - Last 24 Hours (Table) 08/09/16 08/10/16 08/10/16 Range/Units 21:52 06:34 06:34 RBC 3.74 L (4.30-5.90) m/uL Hgb 11.0 L (13.0-17.5) gm/dL Hct 36.0 L (39.0-53.0) % MCHC 30.6 L (31.0-37.0) g/dL RDW 16.2 H (11.5-15.5) % Lymphocytes # 0.6 L (1.0-4.8) k/uL PT 18.7 H (9.0-12.0) sec Chloride (98-107) mmol/L Carbon Dioxide (22-30) mmol/L BUN (9-20) mg/dL Creatinine (0.66-1.25) mg/dL POC Glucose (mg/dL) 123 H (75-99) mg/dL 08/10/16 08/10/16 Range/Units 06:34 16:48 RBC (4.30-5.90) m/uL Hgb (13.0-17.5) gm/dL Hct (39.0-53.0) % MCHC (31.0-37.0) g/dL RDW (11.5-15.5) % Lymphocytes # (1.0-4.8) k/uL PT (9.0-12.0) sec Chloride 91 L (98-107) mmol/L Carbon Dioxide 33 H (22-30) mmol/L BUN 73 H (9-20) mg/dL Creatinine 1.44 H (0.66-1.25) mg/dL POC Glucose (mg/dL) 109 H (75-99) mg/dL Laboratory Results WBC 7.4 k/uL (3.8-10.6) 08/10/16 06:34 RBC 3.74 m/uL (4.30-5.90) L 08/10/16 06:34 Hgb 11.0 gm/dL (13.0-17.5) L 08/10/16 06:34 Hct 36.0 % (39.0-53.0) L 08/10/16 06:34 MCV 96.5 fL (80.0-100.0) 08/10/16 06:34 MCH 29.6 pg (25.0-35.0) 08/10/16 06:34 MCHC 30.6 g/dL (31.0-37.0) L 08/10/16 06:34 RDW 16.2 % (11.5-15.5) H 08/10/16 06:34 Plt Count 320 k/uL (150-450) 08/10/16 06:34 Neutrophils % 76 % 08/10/16 06:34 Lymphocytes % 8 % 08/10/16 06:34 Monocytes % 8 % 08/10/16 06:34 Eosinophils % 4 % 08/10/16 06:34 Basophils % 1 % 08/10/16 06:34 Neutrophils # 5.7 k/uL (1.3-7.7) 08/10/16 06:34 Lymphocytes # 0.6 k/uL (1.0-4.8) L 08/10/16 06:34 Monocytes # 0.6 k/uL (0-1.0) 08/10/16 06:34 Eosinophils # 0.3 k/uL (0-0.7) 08/10/16 06:34 Basophils # 0.0 k/uL (0-0.2) 08/10/16 06:34 Hypochromasia Slight 08/10/16 06:34 Anisocytosis Slight 08/10/16 06:34 Macrocytosis Slight 08/08/16 05:54 ESR 50 mm/hr (0-15) H 07/31/16 05:31 PT 18.7 sec (9.0-12.0) H 08/10/16 06:34 INR 1.9 (<1.1) 08/10/16 06:34 Sodium 139 mmol/L (137-145) 08/10/16 06:34 Potassium 4.8 mmol/L (3.5-5.1) 08/10/16 06:34 Chloride 91 mmol/L (98-107) L 08/10/16 06:34 Carbon Dioxide 33 mmol/L (22-30) H 08/10/16 06:34 Anion Gap 15 mmol/L 08/10/16 06:34 BUN 73 mg/dL (9-20) H 08/10/16 06:34 Creatinine 1.44 mg/dL (0.66-1.25) H 08/10/16 06:34 Est GFR (MDRD) Af Amer 59 (>60 ml/min/1.73 sqM) 08/10/16 06:34 Est GFR (MDRD) Non-Af 49 (>60 ml/min/1.73 sqM) 08/10/16 06:34 Glucose 79 mg/dL (74-99) 08/10/16 06:34 POC Glucose (mg/dL) 109 mg/dL (75-99) H 08/10/16 16:48 POC Glu [employer] Straightener ID Silvia Quiles 08/10/16 16:[address] Glu mg/dL 117 mg/dL 07/30/16 13:50 Hemoglobin A1c 5.7 % (4.2-6.1) 07/30/16 13:50 Uric Acid 3.9 mg/dL (3.5-8.5) 08/05/16 05:39 Calcium 10.0 mg/dL (8.4-10.2) 08/10/16 06:34 Magnesium 2.2 mg/dL (1.6-2.3) 08/10/16 06:34 Total Bilirubin 1.7 mg/dL (0.2-1.3) H 08/06/16 05:48 AST 27 U/L (17-59) 08/06/16 05:48 ALT 28 U/L (21-72) 08/06/16 05:48 Alkaline Phosphatase 132 U/L (38-126) H 08/06/16 05:48 C-Reactive Protein 12.9 mg/L (<10.0) H 07/31/16 05:31 NT-Pro-B Natriuret Pep 5800 pg/mL 07/30/16 12:44 Total Protein 7.5 g/dL (6.3-8.2) 08/06/16 05:48 Albumin 3.9 g/dL (3.5-5.0) 08/06/16 05:48 Prealbumin 12 mg/dL (18-36) L 07/31/16 05:31 TSH 4.720 mIU/L (0.465-4.680) H 07/30/16 12:44 Hepatitis A IgM Ab NEGATIVE 07/31/16 05:31 Hep Bs Antigen Negative 07/31/16 05:31 Hep B Core IgM Ab NEGATIVE 07/31/16 05:31 Hep C IgG Ab Negative (Negative) 07/31/16 05:31 Miscellaneous Test PT/INR 08/06/16 05:48 Misc Test Result 08/06/16 05:48 Microbiology 07/30/16 17:47 Leg - Right Gram Stain - Final 07/30/16 17:47 Leg - Right Wound Culture - Final Staphylococcus aureus Strep pyogenes (grp a) Assessment and Plan (1) Lower extremity ulceration Narrative/Plan: 66-year-old male who has a history of significant underlying medical issues including aortic valve replacement and a recent bout of syncope. He relates to about a one-year history of ulcerations to his bilateral lower extremities have been worsening over time. Is doing some in-home care such as local creams and baby powder which has not helped the ulcers improved. Because of the syncopal event in his worsening functional status he was brought to Hospital with concerns to worsening of congestive heart failure. Echocardiogram has been ordered as has carotid Dopplers. These are pending at this time. The patient is evidence of chronic lower extremity ulcerations and arterial Dopplers are in process and awaited but the venous studies show notice any deep venous thrombosis In the meantime cultures obtained and local wound care with Silvadene and a light wrap will be applied. The patient was concerned that he could be at risk for losing his legs. We discussed at the moment that workup is needed but he does not have evidence of gangrenous changes necessitating amputation at this time. His diabetes appears to be well controlled Evaluation of his cardiovascular status is in process to evaluate impact of his cardiovascular status on his lower extremities. Given his obesity and abnormal liver functions hepatitis panel was checked and is negative for viral hepatitis. Culture did show evidence of MSSA as well as strep Continue local wound care with Silvadene and wraps and elevation. Is applied personally today. Continue with treatment for his volume overload. Since the ulceration is improving now on cefuroxime 500 mg every 12 hours. The current skin eruption was thought to be due to his Coumadin therapy. To the area that is more irritated is being treated with some topical triamcinolone. It is limited to the lower extremities. The extensive volume overload is improving with the Lasix drip. Status: Acute (2) H/O aortic valve replacement Status: Acute (3) Warfarin-induced coagulopathy Status: Acute (4) Obesity Status: Acute
--- NOTE | 2016-08-10 18:47 | PN ---
This patient is being treated with congestive cardiac failure, has been feeling better. His weight is now down to 220 pounds. HEART: S1 and S2 normal. Lungs are clinically clear to auscultation and percussion. There is evidence of leg edema. Patient's electrolytes are normal. Creatinine is 1.44. We will discontinue the IV Lasix drip and start him on p.o. Lasix from tomorrow.
[2016-08-10] MEDS: ALLOPURINOL 300 MG TAB PO SCH (19:04)
[2016-08-10 20:38] LABS: Glucose,Whole Blood 137 mg/dL (75-99)
[2016-08-10] MEDS ORDERED: FUROSEMIDE 10 MG/ML 4 ML VIAL IV SCH (21:00)
[2016-08-11 05:57] LABS: Glucose,Whole Blood 89 mg/dL (75-99)
[2016-08-11 06:23] LABS: Anisocytosis Slight; Basophils % (A) 1 %; CH 30.4; CHCM 31.8; Eosinophils # (A) 0.3 k/uL (0-0.7); Eosinophils % (A) 4 %; HCT 36.5 % (39.0-53.0); HDW 2.86; HGB 11.4 gm/dL (13.0-17.5); Hypochromasia Slight; Luc # (Auto) 0.27; Luc % (Auto) 4; Lymphocytes # (A) 0.5 k/uL (1.0-4.8); Lymphocytes % (A) 7 %; MCH 30.1 pg (25.0-35.0); MCHC 31.2 g/dL (31.0-37.0); MCV 96.3 fL (80.0-100.0); Monocytes # (A) 0.6 k/uL (0-1.0); Monocytes % (A) 9 %; Neutrophils # (A) 5.4 k/uL (1.3-7.7); Neutrophils % (A) 76 %; RBC 3.79 m/uL (4.30-5.90); RDW 16.4 % (11.5-15.5); WBC 7.1 k/uL (3.8-10.6); WBC (Perox) 7.79
[2016-08-11 06:35] LABS: Anion Gap 12 mmol/L; Blood Urea Nitrogen 72 mg/dL (9-20); Carbon Dioxide 36 mmol/L (22-30); Chloride 91 mmol/L (98-107); Glucose 99 mg/dL (74-99); Magnesium 2.4 mg/dL (1.6-2.3); Non-African American GFR(MDRD) 51 (>60 ml/min/1.73 sqM); Potassium 4.8 mmol/L (3.5-5.1); Sodium 139 mmol/L (137-145)
[2016-08-11 06:39] LABS: INR 2.1 (<1.1); Prothrombin Time 19.8 sec (9.0-12.0)
[2016-08-11] MEDS: LEVOTHYROXINE 25 MCG TAB PO SCH (08:54)
[2016-08-11] MEDS: ATORVASTATIN 20 MG TAB PO SCH (08:55)
[2016-08-11] MEDS: INSULIN LISPRO (humaLOG) 300 UNIT/3 ML VIAL SQ SCH ×4 (08:55→21:07)
[2016-08-11] MEDS: FUROSEMIDE 40 MG TAB PO SCH ×2 (08:55→15:14)
[2016-08-11] MEDS: CEFUROXIME 250 MG TAB PO SCH ×2 (08:55→21:07)
[2016-08-11] MEDS: ALLOPURINOL 300 MG TAB PO SCH (08:55)
[2016-08-11] MEDS: METOPROLOL TARTRATE 50 MG TAB PO SCH ×2 (08:56→21:07)
[2016-08-11] MEDS: SPIRONOLACTONE 25 MG TAB PO SCH (08:56)
[2016-08-11] MEDS: LISINOPRIL 20 MG TAB PO SCH (08:56)
[2016-08-11] MEDS: HYDROcodone/APAP 5-325MG 1 EACH TAB PO PRN ×2 (10:22→18:39)
[2016-08-11] MEDS: diphenhydrAMINE 25 MG CAP PO PRN ×2 (10:22→18:38)
--- NOTE | 2016-08-11 10:22 | P.PN ---
Subjective Principal diagnosis: Acute congestive heart failure exacerbation Patient is a 66-year-old male with known history of aortic valve replacement and history of cardiomyopathy who was admitted to [facility] with multiple medical problems including syncopal episode, worsening shortness of breath with evidence of acute exacerbation of congestive heart failure, bilateral lower extremity cellulitis with large ulcerations on bilateral pretibial areas. He was admitted to telemetry floor he was started on IV Lasix he was seen by cardiology and by infectious disease. Today he is feeling somewhat better his shortness of breath has improved lower extremity swelling has improved he has dressing on bilateral lower extremities. He denies any chest pain no dizziness no nausea or vomiting no abdominal pain and no urinary symptoms. Weight continued to be elevated despite IV Lasix, patient was started on Lasix drip and oral Zaroxolyn, he is starting to lose weight, BUN and creatinine are going up gradually, will monitor closely. Objective - Vital Signs Vital signs: Vital Signs Temp 96.8 F L 08/11/16 08:00 Pulse 81 08/11/16 08:00 Resp 18 08/11/16 08:00 BP 108/61 08/11/16 08:00 Pulse Ox 93 L 08/11/16 08:00 Intake & Output 08/10/16 08/11/16 08/11/16 18:59 06:59 18:59 Intake Total 477 200 Output Total 575 1700 Balance -98 -1700 200 Weight 122.5 kg Intake: Oral 477 200 Output: Urine 575 1700 Other: Voiding Method Urinal Urinal - Exam In general patient is alert and oriented 3 in no apparent distress HEENT head normocephalic and atraumatic Neck is supple no JVD no goiter no lymphadenopathy Chest exam reveals a scattered crackles in both lung helton no wheezing Cardiac exam reveals irregular heart sounds no gallops no murmurs Abdomen is soft nontender no organomegaly Extremity exam reveals 3+ edema, with large ulcers on bilateral lower extremities no cyanosis or clubbing Skin exam reveals generalized purpura rash on upper and lower extremities - Labs CBC & Chem 7: 08/11/16 05:47 08/11/16 05:47 Labs: Abnormal Lab Results - Last 24 Hours (Table) 08/10/16 08/10/16 08/11/16 Range/Units 16:48 20:37 05:47 RBC 3.79 L (4.30-5.90) m/uL Hgb 11.4 L (13.0-17.5) gm/dL Hct 36.5 L (39.0-53.0) % RDW 16.4 H (11.5-15.5) % Lymphocytes # 0.5 L (1.0-4.8) k/uL PT (9.0-12.0) sec Chloride (98-107) mmol/L Carbon Dioxide (22-30) mmol/L BUN (9-20) mg/dL Creatinine (0.66-1.25) mg/dL POC Glucose (mg/dL) 109 H 137 H (75-99) mg/dL Magnesium (1.6-2.3) mg/dL 08/11/16 08/11/16 Range/Units 05:47 05:47 RBC (4.30-5.90) m/uL Hgb (13.0-17.5) gm/dL Hct (39.0-53.0) % RDW (11.5-15.5) % Lymphocytes # (1.0-4.8) k/uL PT 19.8 H (9.0-12.0) sec Chloride 91 L (98-107) mmol/L Carbon Dioxide 36 H (22-30) mmol/L BUN 72 H (9-20) mg/dL Creatinine 1.40 H (0.66-1.25) mg/dL POC Glucose (mg/dL) (75-99) mg/dL Magnesium 2.4 H (1.6-2.3) mg/dL Assessment and Plan Plan: #1 syncopal episode, patient described waiting for the bus on his porch when the bus came in he walked down the 3 steps off his porch and then he felt dizzy and fell to the ground the business office technician came down to help him he regained consciousness momentarily this happened few days prior to admission. At this time will check echocardiogram and carotid Doppler. #2 worsening dyspnea, likely acute diastolic congestive heart failure exacerbation, echocardiogram was ordered and cardiology consult requested patient was started on IV Lasix drip and Zaroxolyn, patient lost 11 pounds since admission , he was switched to oral Lasix at this time .will monitor kidney function closely #3 coagulopathy on admission resolved, patient was switched from Coumadin to Xarelto #4 bilateral lower extremity cellulitis was large ulcers, infectious disease consultation was requested, maintained on IV cefazolin #5 underlying history of [id number] diabetes mellitus millimeters, will check hemoglobin A1c will continue was his home medications at this time #6 underlying history of gout, resume allopurinol #7 bilateral lower extremity purpura likely related to Coumadin use, anticoagulation switched to Xarelto #8 for GI prophylaxis we will use Pepcid, for DVT prophylaxis will continue with Xarelto #9 physical debility patient will need to go to a [facility] post this admission, possible discharge on Saturday
[2016-08-11] MEDS: TRIAMCINOLONE 0.1% CREAM 80 GM TUBE TOPICAL SCH ×3 (10:24→21:07)
[2016-08-11] MEDS: SILVER sulfADIAZINE Cream 400 GM 1 APPLIC APPLIC TOPICAL SCH ×2 (10:24→21:07)
[2016-08-11 12:44] LABS: Glucose,Whole Blood 108 mg/dL (75-99)
[2016-08-11 17:16] LABS: Glucose,Whole Blood 107 mg/dL (75-99)
[2016-08-11] MEDS: RIVAROXABAN 10 MG TAB PO SCH (18:03)
--- NOTE | 2016-08-11 21:17 | P.PN ---
Subjective Principal diagnosis: syncope with lower extremity edema 66-year-old male who is somewhat of a poor historian presents to the physician's office with a complaint of an episode of syncope and increasing weakness. The patient apparently has been ill over the last year with increasing difficulties with fatigue and worsening exercise tolerance. He developed increasing lower extremity edema and ulcerations. He was caring for them with local products at home including baby powder. This was not working and the ulcerations were continuing to increase in number and size. Not until he had the syncopal event at his home where he bruised his left arm that he finally seek care. It appears his 2 brothers helped him seek care. He lives in a home with his 90-year-old mother. The 2 other brothers do help with the overall care such that they do the shopping and help with the cooking. The patient apparently has been medically disabled since his mid 50s. With a Lasix drip there has been a significant improvement of his volume overload. He has a 8lb decrease in the last day. He is less short of breath and feeling better overall. Lower extremity edema is also improved. The new rashes started in the lower extremities is improving and less uncomfortable today. Objective - Vital Signs Vital signs: Vital Signs Temp 97.9 F 08/11/16 15:00 Pulse 60 08/11/16 15:00 Resp 20 08/11/16 15:00 BP 99/61 08/11/16 15:00 Pulse Ox 94 L 08/11/16 15:00 Intake & Output 08/11/16 08/11/16 08/12/16 06:59 18:59 07:59 Intake Total 440 Output Total 1700 375 Balance -1700 65 Weight 122.5 kg Intake: Oral 440 Output: Urine 1700 375 Other: Voiding Method Urinal Urinal # Voids 1 - Exam Obese 66-year-old male seems to be comfortable sitting upright on the bedside. HEENT: Anicteric conjunctiva are pink and moist nasal mucosa grossly intact without significant lesions, there is no thrush. Poor dentition Neck: The neck is supple without significant lymphadenopathy or thyromegaly. Lungs: There is symmetrical air entry, few basilar crackles scattered wheezes without zeus bronchial sounds or egophony being noted Heart: Irregular with an audible S1 and S2. Soft S4 2/6 systolic murmur left sternal border that radiates to the carotid PMI is nondisplaced Abdomen: Obese, Positive bowel sounds soft and nontender without palpable masses or organomegaly. There was no guarding or rebound. Extremities: The upper extremities show evidence of the bruising to the left arm proximal to the elbow, there is evidence of muscular wasting. The lower extremities have evidence of just trace edema at this time. Skin patient is evidence of the multiple full-thickness ulcerations on the bilateral lower extremities with eschar at the base. He does have a few lesions on the abdominal wall on his pannus. The bruises left arm is without any ulceration. Although does have evidence of some rash-like changes of the bilateral upper extremities and he is not clear how long that has been present. The lower extremity ulcerations have been present for at least a year, improving with the Silvadene wrap. The eschars are showing some softening. Attempts to start remove the eschars resulted in too much pain. We'll need more time with wraps. However now has evidence of the purpuric rash in the lower extremities from the knee distally. It was improving but on the posterior aspect of the left knee is some increased irritation. Responding to the current steroid therapy that has been started. Neuro: Awake alert oriented to person place and time. Follows simple commands. Appears to have a limited IQ - Labs CBC & Chem 7: 08/11/16 05:47 08/11/16 05:47 Labs: Abnormal Lab Results - Last 24 Hours (Table) 08/11/16 08/11/16 08/11/16 Range/Units 05:47 05:47 05:47 RBC 3.79 L (4.30-5.90) m/uL Hgb 11.4 L (13.0-17.5) gm/dL Hct 36.5 L (39.0-53.0) % RDW 16.4 H (11.5-15.5) % Lymphocytes # 0.5 L (1.0-4.8) k/uL PT 19.8 H (9.0-12.0) sec Chloride 91 L (98-107) mmol/L Carbon Dioxide 36 H (22-30) mmol/L BUN 72 H (9-20) mg/dL Creatinine 1.40 H (0.66-1.25) mg/dL POC Glucose (mg/dL) (75-99) mg/dL Magnesium 2.4 H (1.6-2.3) mg/dL 08/11/16 08/11/16 Range/Units 12:31 17:09 RBC (4.30-5.90) m/uL Hgb (13.0-17.5) gm/dL Hct (39.0-53.0) % RDW (11.5-15.5) % Lymphocytes # (1.0-4.8) k/uL PT (9.0-12.0) sec Chloride (98-107) mmol/L Carbon Dioxide (22-30) mmol/L BUN (9-20) mg/dL Creatinine (0.66-1.25) mg/dL POC Glucose (mg/dL) 108 H 107 H (75-99) mg/dL Magnesium (1.6-2.3) mg/dL Laboratory Results WBC 7.1 k/uL (3.8-10.6) 08/11/16 05:47 RBC 3.79 m/uL (4.30-5.90) L 08/11/16 05:47 Hgb 11.4 gm/dL (13.0-17.5) L 08/11/16 05:47 Hct 36.5 % (39.0-53.0) L 08/11/16 05:47 MCV 96.3 fL (80.0-100.0) 08/11/16 05:47 MCH 30.1 pg (25.0-35.0) 08/11/16 05:47 MCHC 31.2 g/dL (31.0-37.0) 08/11/16 05:47 RDW 16.4 % (11.5-15.5) H 08/11/16 05:47 Plt Count 321 k/uL (150-450) 08/11/16 05:47 Neutrophils % 76 % 08/11/16 05:47 Lymphocytes % 7 % 08/11/16 05:47 Monocytes % 9 % 08/11/16 05:47 Eosinophils % 4 % 08/11/16 05:47 Basophils % 1 % 08/11/16 05:47 Neutrophils # 5.4 k/uL (1.3-7.7) 08/11/16 05:47 Lymphocytes # 0.5 k/uL (1.0-4.8) L 08/11/16 05:47 Monocytes # 0.6 k/uL (0-1.0) 08/11/16 05:47 Eosinophils # 0.3 k/uL (0-0.7) 08/11/16 05:47 Basophils # 0.0 k/uL (0-0.2) 08/11/16 05:47 Hypochromasia Slight 08/11/16 05:47 Anisocytosis Slight 08/11/16 05:47 Macrocytosis Slight 08/08/16 05:54 ESR 50 mm/hr (0-15) H 07/31/16 05:31 PT 19.8 sec (9.0-12.0) H 08/11/16 05:47 INR 2.1 (<1.1) 08/11/16 05:47 Sodium 139 mmol/L (137-145) 08/11/16 05:47 Potassium 4.8 mmol/L (3.5-5.1) 08/11/16 05:47 Chloride 91 mmol/L (98-107) L 08/11/16 05:47 Carbon Dioxide 36 mmol/L (22-30) H 08/11/16 05:47 Anion Gap 12 mmol/L 08/11/16 05:47 BUN 72 mg/dL (9-20) H 08/11/16 05:47 Creatinine 1.40 mg/dL (0.66-1.25) H 08/11/16 05:47 Est GFR (MDRD) Af Amer >60 (>60 ml/min/1.73 sqM) 08/11/16 05:47 Est GFR (MDRD) Non-Af 51 (>60 ml/min/1.73 sqM) 08/11/16 05:47 Glucose 99 mg/dL (74-99) 08/11/16 05:47 POC Glucose (mg/dL) 107 mg/dL (75-99) H 08/11/16 17:09 POC Glu Vehicle Inspector ID Darby Izaguirre 08/11/16 17:[address] Glu mg/dL 117 mg/dL 07/30/16 13:50 Hemoglobin A1c 5.7 % (4.2-6.1) 07/30/16 13:50 Uric Acid 3.9 mg/dL (3.5-8.5) 08/05/16 05:39 Calcium 10.0 mg/dL (8.4-10.2) 08/11/16 05:47 Magnesium 2.4 mg/dL (1.6-2.3) H 08/11/16 05:47 Total Bilirubin 1.7 mg/dL (0.2-1.3) H 08/06/16 05:48 AST 27 U/L (17-59) 08/06/16 05:48 ALT 28 U/L (21-72) 08/06/16 05:48 Alkaline Phosphatase 132 U/L (38-126) H 08/06/16 05:48 C-Reactive Protein 12.9 mg/L (<10.0) H 07/31/16 05:31 NT-Pro-B Natriuret Pep 5800 pg/mL 07/30/16 12:44 Total Protein 7.5 g/dL (6.3-8.2) 08/06/16 05:48 Albumin 3.9 g/dL (3.5-5.0) 08/06/16 05:48 Prealbumin 12 mg/dL (18-36) L 07/31/16 05:31 TSH 4.720 mIU/L (0.465-4.680) H 07/30/16 12:44 Hepatitis A IgM Ab NEGATIVE 07/31/16 05:31 Hep Bs Antigen Negative 07/31/16 05:31 Hep B Core IgM Ab NEGATIVE 07/31/16 05:31 Hep C IgG Ab Negative (Negative) 07/31/16 05:31 Miscellaneous Test PT/INR 08/06/16 05:48 Misc Test Result 08/06/16 05:48 Microbiology 07/30/16 17:47 Leg - Right Gram Stain - Final 07/30/16 17:47 Leg - Right Wound Culture - Final Staphylococcus aureus Strep pyogenes (grp a) Assessment and Plan (1) Lower extremity ulceration Narrative/Plan: 66-year-old male who has a history of significant underlying medical issues including aortic valve replacement and a recent bout of syncope. He relates to about a one-year history of ulcerations to his bilateral lower extremities have been worsening over time. Is doing some in-home care such as local creams and baby powder which has not helped the ulcers improved. Because of the syncopal event in his worsening functional status he was brought to Hospital with concerns to worsening of congestive heart failure. Echocardiogram has been ordered as has carotid Dopplers. These are pending at this time. The patient is evidence of chronic lower extremity ulcerations and arterial Dopplers are in process and awaited but the venous studies show notice any deep venous thrombosis In the meantime cultures obtained and local wound care with Silvadene and a light wrap will be applied. The patient was concerned that he could be at risk for losing his legs. We discussed at the moment that workup is needed but he does not have evidence of gangrenous changes necessitating amputation at this time. His diabetes appears to be well controlled Evaluation of his cardiovascular status is in process to evaluate impact of his cardiovascular status on his lower extremities. Given his obesity and abnormal liver functions hepatitis panel was checked and is negative for viral hepatitis. Culture did show evidence of MSSA as well as strep Continue local wound care with Silvadene and wraps and elevation. Is applied personally today. Continue with treatment for his volume overload. Since the ulceration is improving now on cefuroxime 500 mg every 12 hours. The current skin eruption was thought to be due to his Coumadin therapy. To the area that is more irritated is being treated with some topical triamcinolone. It is limited to the lower extremities. The extensive volume overload is improving with the Lasix drip.23# weight loss so far. Status: Acute (2) H/O aortic valve replacement Status: Acute (3) Warfarin-induced coagulopathy Status: Acute (4) Obesity Status: Acute
[2016-08-11 21:22] LABS: Glucose,Whole Blood 159 mg/dL (75-99)
[2016-08-12] MEDS: LEVOTHYROXINE 25 MCG TAB PO SCH (06:29)
[2016-08-12] MEDS: METOPROLOL TARTRATE 50 MG TAB PO SCH ×2 (07:55→21:24)
[2016-08-12] MEDS: CEFUROXIME 250 MG TAB PO SCH ×2 (07:55→21:24)
[2016-08-12] MEDS: LISINOPRIL 20 MG TAB PO SCH (07:55)
[2016-08-12] MEDS: SPIRONOLACTONE 25 MG TAB PO SCH (07:55)
[2016-08-12] MEDS: INSULIN LISPRO (humaLOG) 300 UNIT/3 ML VIAL SQ SCH ×4 (07:56→21:24)
[2016-08-12] MEDS: ALLOPURINOL 300 MG TAB PO SCH (07:56)
[2016-08-12] MEDS: ATORVASTATIN 20 MG TAB PO SCH (07:56)
[2016-08-12] MEDS: FUROSEMIDE 40 MG TAB PO SCH ×2 (07:56→17:09)
[2016-08-12] MEDS: TRIAMCINOLONE 0.1% CREAM 80 GM TUBE TOPICAL SCH ×3 (07:57→21:28)
[2016-08-12] MEDS: SILVER sulfADIAZINE Cream 400 GM 1 APPLIC APPLIC TOPICAL SCH ×2 (07:57→21:28)
[2016-08-12 08:15] LABS: Glucose,Whole Blood 109 mg/dL (75-99)
[2016-08-12 08:27] LABS: INR 1.9 (<1.1); Prothrombin Time 18.2 sec (9.0-12.0)
[2016-08-12 08:33] LABS: Anisocytosis Slight; Basophils % (A) 1 %; CH 30.1; CHCM 31.7; Eosinophils # (A) 0.2 k/uL (0-0.7); Eosinophils % (A) 3 %; HCT 34.1 % (39.0-53.0); HDW 2.81; HGB 10.6 gm/dL (13.0-17.5); Hypochromasia Slight; Luc # (Auto) 0.27; Luc % (Auto) 4; Lymphocytes # (A) 0.5 k/uL (1.0-4.8); Lymphocytes % (A) 6 %; MCH 29.8 pg (25.0-35.0); MCHC 31.2 g/dL (31.0-37.0); MCV 95.5 fL (80.0-100.0); Monocytes # (A) 0.6 k/uL (0-1.0); Monocytes % (A) 8 %; Neutrophils # (A) 5.4 k/uL (1.3-7.7); Neutrophils % (A) 78 %; RBC 3.57 m/uL (4.30-5.90); WBC (Perox) 6.87
[2016-08-12 08:38] LABS: Anion Gap 13 mmol/L; Blood Urea Nitrogen 70 mg/dL (9-20); Calcium 10.3 mg/dL (8.4-10.2); Carbon Dioxide 34 mmol/L (22-30); Chloride 95 mmol/L (98-107); Glucose 109 mg/dL (74-99); Magnesium 2.5 mg/dL (1.6-2.3); Non-African American GFR(MDRD) 50 (>60 ml/min/1.73 sqM); Potassium 4.9 mmol/L (3.5-5.1); Sodium 142 mmol/L (137-145)
[2016-08-12] MEDS: HYDROcodone/APAP 5-325MG 1 EACH TAB PO PRN ×2 (11:03→17:13)
[2016-08-12] MEDS: diphenhydrAMINE 25 MG CAP PO PRN ×2 (11:03→17:14)
[2016-08-12 12:14] LABS: Glucose,Whole Blood 120 mg/dL (75-99)
--- NOTE | 2016-08-12 12:54 | P.PN ---
Subjective Principal diagnosis: Acute congestive heart failure exacerbation Patient is a 66-year-old male with known history of aortic valve replacement and history of cardiomyopathy who was admitted to [facility] with multiple medical problems including syncopal episode, worsening shortness of breath with evidence of acute exacerbation of congestive heart failure, bilateral lower extremity cellulitis with large ulcerations on bilateral pretibial areas. He was admitted to telemetry floor he was started on IV Lasix he was seen by cardiology and by infectious disease. Today he is feeling somewhat better his shortness of breath has improved lower extremity swelling has improved he has dressing on bilateral lower extremities. He denies any chest pain no dizziness no nausea or vomiting no abdominal pain and no urinary symptoms. Weight continued to be elevated despite IV Lasix, patient was started on Lasix drip and oral Zaroxolyn, he is starting to lose weight, BUN and creatinine are going up gradually, will monitor closely. Objective - Vital Signs Vital signs: Vital Signs Temp 97.7 F 08/12/16 07:00 Pulse 67 08/12/16 07:00 Resp 19 08/12/16 08:00 BP 120/74 08/12/16 07:00 Pulse Ox 97 08/12/16 07:00 Intake & Output 08/11/16 08/12/16 08/12/16 17:59 06:59 18:59 Intake Total Output Total 300 Balance -300 Weight Intake: Oral Output: Urine 300 Other: Voiding Method Urinal # Voids - Exam In general patient is alert and oriented 3 in no apparent distress HEENT head normocephalic and atraumatic Neck is supple no JVD no goiter no lymphadenopathy Chest exam reveals a scattered crackles in both lung hel[place] no wheezing Cardiac exam reveals irregular heart sounds no gallops no murmurs Abdomen is soft nontender no organomegaly Extremity exam reveals 3+ edema, with large ulcers on bilateral lower extremities no cyanosis or clubbing Skin exam reveals generalized purpura rash on upper and lower extremities - Labs CBC & Chem 7: 08/12/16 07:49 08/12/16 07:49 Labs: Abnormal Lab Results - Last 24 Hours (Table) 08/11/16 08/11/16 08/11/16 Range/Units 12:31 17:09 21:03 RBC (4.30-5.90) m/uL Hgb (13.0-17.5) gm/dL Hct (39.0-53.0) % RDW (11.5-15.5) % Lymphocytes # (1.0-4.8) k/uL PT (9.0-12.0) sec Chloride (98-107) mmol/L Carbon Dioxide (22-30) mmol/L BUN (9-20) mg/dL Creatinine (0.66-1.25) mg/dL Glucose (74-99) mg/dL POC Glucose (mg/dL) 108 H 107 H 159 H (75-99) mg/dL Calcium (8.4-10.2) mg/dL Magnesium (1.6-2.3) mg/dL 08/12/16 08/12/16 08/12/16 Range/Units 07:47 07:49 07:49 RBC 3.57 L (4.30-5.90) m/uL Hgb 10.6 L (13.0-17.5) gm/dL Hct 34.1 L (39.0-53.0) % RDW 16.0 H (11.5-15.5) % Lymphocytes # 0.5 L (1.0-4.8) k/uL PT 18.2 H (9.0-12.0) sec Chloride (98-107) mmol/L Carbon Dioxide (22-30) mmol/L BUN (9-20) mg/dL Creatinine (0.66-1.25) mg/dL Glucose (74-99) mg/dL POC Glucose (mg/dL) 109 H (75-99) mg/dL Calcium (8.4-10.2) mg/dL Magnesium (1.6-2.3) mg/dL 08/12/16 08/12/16 Range/Units 07:49 12:03 RBC (4.30-5.90) m/uL Hgb (13.0-17.5) gm/dL Hct (39.0-53.0) % RDW (11.5-15.5) % Lymphocytes # (1.0-4.8) k/uL PT (9.0-12.0) sec Chloride 95 L (98-107) mmol/L Carbon Dioxide 34 H (22-30) mmol/L BUN 70 H (9-20) mg/dL Creatinine 1.41 H (0.66-1.25) mg/dL Glucose 109 H (74-99) mg/dL POC Glucose (mg/dL) 120 H (75-99) mg/dL Calcium 10.3 H (8.4-10.2) mg/dL Magnesium 2.5 H (1.6-2.3) mg/dL Assessment and Plan Plan: #1 syncopal episode, patient described waiting for the bus on his porch when the bus came in he walked down the 3 steps off his porch and then he felt dizzy and fell to the ground the ict business development manager came down to help him he regained consciousness momentarily this happened few days prior to admission. At this time will check echocardiogram and carotid Doppler. #2 worsening dyspnea, likely acute diastolic congestive heart failure exacerbation, echocardiogram was ordered and cardiology consult requested patient was started on IV Lasix drip and Zaroxolyn, patient lost 11 pounds since admission , he was switched to oral Lasix at this time .will monitor kidney function closely #3 coagulopathy on admission resolved, patient was switched from Coumadin to Xarelto #4 bilateral lower extremity cellulitis with large ulcers, infectious disease consultation was requested, maintained on IV cefazolin #5 underlying history of [id number] diabetes mellitus millimeters, will check hemoglobin A1c will continue was his home medications at this time #6 underlying history of gout, resume allopurinol #7 bilateral lower extremity purpura likely related to Coumadin use, anticoagulation switched to Xarelto #8 for GI prophylaxis we will use Pepcid, for DVT prophylaxis will continue with Xarelto #9 physical debility patient will need to go to a jail post this admission, possible discharge on Saturday
[2016-08-12] MEDS: RIVAROXABAN 10 MG TAB PO SCH (17:10)
[2016-08-12 17:45] LABS: Glucose,Whole Blood 100 mg/dL (75-99)
--- NOTE | 2016-08-12 20:48 | P.PN ---
Subjective Principal diagnosis: syncope with lower extremity edema 66-year-old male who is somewhat of a poor historian presents to the physician's office with a complaint of an episode of syncope and increasing weakness. The patient apparently has been ill over the last year with increasing difficulties with fatigue and worsening exercise tolerance. He developed increasing lower extremity edema and ulcerations. He was caring for them with local products at home including baby powder. This was not working and the ulcerations were continuing to increase in number and size. Not until he had the syncopal event at his home where he bruised his left arm that he finally seek care. It appears his 2 brothers helped him seek care. He lives in a home with his 90-year-old mother. The 2 other brothers do help with the overall care such that they do the shopping and help with the cooking. The patient apparently has been medically disabled since his mid 50s. With a Lasix drip there has been a significant improvement of his volume overload. He has a 8lb decrease in the last day. He is less short of breath and feeling better overall. Lower extremity edema is also improved. The new rashes started in the lower extremities is improving and improving. Objective - Vital Signs Vital signs: Vital Signs Temp 97.7 F 08/12/16 15:00 Pulse 65 08/12/16 15:00 Resp 19 08/12/16 15:35 BP 124/74 08/12/16 15:00 Pulse Ox 96 08/12/16 15:00 Intake & Output 08/12/16 08/12/16 08/13/16 06:59 18:59 06:59 Intake Total Output Total 600 Balance -600 Weight Intake: Oral Output: Urine 600 Other: Voiding Method Urinal # Voids 2 - Exam Obese 66-year-old male seems to be comfortable sitting upright on the bedside. HEENT: Anicteric conjunctiva are pink and moist nasal mucosa grossly intact without significant lesions, there is no thrush. Poor dentition Neck: The neck is supple without significant lymphadenopathy or thyromegaly. Lungs: There is symmetrical air entry, few basilar crackles scattered wheezes without zeus bronchial sounds or egophony being noted Heart: Irregular with an audible S1 and S2. Soft S4 2/6 systolic murmur left sternal border that radiates to the carotid PMI is nondisplaced Abdomen: Obese, Positive bowel sounds soft and nontender without palpable masses or organomegaly. There was no guarding or rebound. Extremities: The upper extremities show evidence of the bruising to the left arm proximal to the elbow, there is evidence of muscular wasting. The lower extremities have evidence of just trace edema at this time. Skin patient is evidence of the multiple full-thickness ulcerations on the bilateral lower extremities with eschar at the base. He does have a few lesions on the abdominal wall on his pannus. The bruises left arm is without any ulceration. Although does have evidence of some rash-like changes of the bilateral upper extremities and he is not clear how long that has been present. The lower extremity ulcerations have been present for at least a year, improving with the Silvadene wrap. The eschars are showing some softening. Attempts to start remove the eschars resulted in too much pain. We'll need more time with wraps. However now has evidence of the purpuric rash in the lower extremities from the knee distally. It was improving but on the posterior aspect of the left knee is some increased irritation. Responding to the current steroid therapy that has been started. Neuro: Awake alert oriented to person place and time. - Labs CBC & Chem 7: 08/12/16 07:49 08/12/16 07:49 Labs: Abnormal Lab Results - Last 24 Hours (Table) 08/11/16 08/12/16 08/12/16 Range/Units 21:03 07:47 07:49 RBC 3.57 L (4.30-5.90) m/uL Hgb 10.6 L (13.0-17.5) gm/dL Hct 34.1 L (39.0-53.0) % RDW 16.0 H (11.5-15.5) % Lymphocytes # 0.5 L (1.0-4.8) k/uL PT (9.0-12.0) sec Chloride (98-107) mmol/L Carbon Dioxide (22-30) mmol/L BUN (9-20) mg/dL Creatinine (0.66-1.25) mg/dL Glucose (74-99) mg/dL POC Glucose (mg/dL) 159 H 109 H (75-99) mg/dL Calcium (8.4-10.2) mg/dL Magnesium (1.6-2.3) mg/dL 08/12/16 08/12/16 08/12/16 Range/Units 07:49 07:49 12:03 RBC (4.30-5.90) m/uL Hgb (13.0-17.5) gm/dL Hct (39.0-53.0) % RDW (11.5-15.5) % Lymphocytes # (1.0-4.8) k/uL PT 18.2 H (9.0-12.0) sec Chloride 95 L (98-107) mmol/L Carbon Dioxide 34 H (22-30) mmol/L BUN 70 H (9-20) mg/dL Creatinine 1.41 H (0.66-1.25) mg/dL Glucose 109 H (74-99) mg/dL POC Glucose (mg/dL) 120 H (75-99) mg/dL Calcium 10.3 H (8.4-10.2) mg/dL Magnesium 2.5 H (1.6-2.3) mg/dL 08/12/16 Range/Units 17:38 RBC (4.30-5.90) m/uL Hgb (13.0-17.5) gm/dL Hct (39.0-53.0) % RDW (11.5-15.5) % Lymphocytes # (1.0-4.8) k/uL PT (9.0-12.0) sec Chloride (98-107) mmol/L Carbon Dioxide (22-30) mmol/L BUN (9-20) mg/dL Creatinine (0.66-1.25) mg/dL Glucose (74-99) mg/dL POC Glucose (mg/dL) 100 H (75-99) mg/dL Calcium (8.4-10.2) mg/dL Magnesium (1.6-2.3) mg/dL Laboratory Results WBC 7.0 k/uL (3.8-10.6) 08/12/16 07:49 RBC 3.57 m/uL (4.30-5.90) L 08/12/16 07:49 Hgb 10.6 gm/dL (13.0-17.5) L 08/12/16 07:49 Hct 34.1 % (39.0-53.0) L 08/12/16 07:49 MCV 95.5 fL (80.0-100.0) 08/12/16 07:49 MCH 29.8 pg (25.0-35.0) 08/12/16 07:49 MCHC 31.2 g/dL (31.0-37.0) 08/12/16 07:49 RDW 16.0 % (11.5-15.5) H 08/12/16 07:49 Plt Count 317 k/uL (150-450) 08/12/16 07:49 Neutrophils % 78 % 08/12/16 07:49 Lymphocytes % 6 % 08/12/16 07:49 Monocytes % 8 % 08/12/16 07:49 Eosinophils % 3 % 08/12/16 07:49 Basophils % 1 % 08/12/16 07:49 Neutrophils # 5.4 k/uL (1.3-7.7) 08/12/16 07:49 Lymphocytes # 0.5 k/uL (1.0-4.8) L 08/12/16 07:49 Monocytes # 0.6 k/uL (0-1.0) 08/12/16 07:49 Eosinophils # 0.2 k/uL (0-0.7) 08/12/16 07:49 Basophils # 0.0 k/uL (0-0.2) 08/12/16 07:49 Hypochromasia Slight 08/12/16 07:49 Anisocytosis Slight 08/12/16 07:49 Macrocytosis Slight 08/08/16 05:54 ESR 50 mm/hr (0-15) H 07/31/16 05:31 PT 18.2 sec (9.0-12.0) H 08/12/16 07:49 INR 1.9 (<1.1) 08/12/16 07:49 Sodium 142 mmol/L (137-145) 08/12/16 07:49 Potassium 4.9 mmol/L (3.5-5.1) 08/12/16 07:49 Chloride 95 mmol/L (98-107) L 08/12/16 07:49 Carbon Dioxide 34 mmol/L (22-30) H 08/12/16 07:49 Anion Gap 13 mmol/L 08/12/16 07:49 BUN 70 mg/dL (9-20) H 08/12/16 07:49 Creatinine 1.41 mg/dL (0.66-1.25) H 08/12/16 07:49 Est GFR (MDRD) Af Amer >60 (>60 ml/min/1.73 sqM) 08/12/16 07:49 Est GFR (MDRD) Non-Af 50 (>60 ml/min/1.73 sqM) 08/12/16 07:49 Glucose 109 mg/dL (74-99) H 08/12/16 07:49 POC Glucose (mg/dL) 100 mg/dL (75-99) H 08/12/16 17:38 POC Glu Reservation Sales Agent ID Aga Edward 08/12/16 17:[address] Glu mg/dL 117 mg/dL 07/30/16 13:50 Hemoglobin A1c 5.7 % (4.2-6.1) 07/30/16 13:50 Uric Acid 3.9 mg/dL (3.5-8.5) 08/05/16 05:39 Calcium 10.3 mg/dL (8.4-10.2) H 08/12/16 07:49 Magnesium 2.5 mg/dL (1.6-2.3) H 08/12/16 07:49 Total Bilirubin 1.7 mg/dL (0.2-1.3) H 08/06/16 05:48 AST 27 U/L (17-59) 08/06/16 05:48 ALT 28 U/L (21-72) 08/06/16 05:48 Alkaline Phosphatase 132 U/L (38-126) H 08/06/16 05:48 C-Reactive Protein 12.9 mg/L (<10.0) H 07/31/16 05:31 NT-Pro-B Natriuret Pep 5800 pg/mL 07/30/16 12:44 Total Protein 7.5 g/dL (6.3-8.2) 08/06/16 05:48 Albumin 3.9 g/dL (3.5-5.0) 08/06/16 05:48 Prealbumin 12 mg/dL (18-36) L 07/31/16 05:31 TSH 4.720 mIU/L (0.465-4.680) H 07/30/16 12:44 Hepatitis A IgM Ab NEGATIVE 07/31/16 05:31 Hep Bs Antigen Negative 07/31/16 05:31 Hep B Core IgM Ab NEGATIVE 07/31/16 05:31 Hep C IgG Ab Negative (Negative) 07/31/16 05:31 Miscellaneous Test PT/INR 08/06/16 05:48 Misc Test Result 08/06/16 05:48 Microbiology 07/30/16 17:47 Leg - Right Gram Stain - Final 07/30/16 17:47 Leg - Right Wound Culture - Final Staphylococcus aureus Strep pyogenes (grp a) Assessment and Plan (1) Lower extremity ulceration Narrative/Plan: 66-year-old male who has a history of significant underlying medical issues including aortic valve replacement and a recent bout of syncope. He relates to about a one-year history of ulcerations to his bilateral lower extremities have been worsening over time. Is doing some in-home care such as local creams and baby powder which has not helped the ulcers improved. Because of the syncopal event in his worsening functional status he was brought to Hospital with concerns to worsening of congestive heart failure. Echocardiogram has been ordered as has carotid Dopplers. These are pending at this time. The patient is evidence of chronic lower extremity ulcerations and arterial Dopplers are in process and awaited but the venous studies show notice any deep venous thrombosis In the meantime cultures obtained and local wound care with Silvadene and a light wrap will be applied. The patient was concerned that he could be at risk for losing his legs. We discussed at the moment that workup is needed but he does not have evidence of gangrenous changes necessitating amputation at this time. His diabetes appears to be well controlled Evaluation of his cardiovascular status is in process to evaluate impact of his cardiovascular status on his lower extremities. Given his obesity and abnormal liver functions hepatitis panel was checked and is negative for viral hepatitis. Culture did show evidence of MSSA as well as strep Continue local wound care with Silvadene and wraps and elevation. Is applied personally today. Continue with treatment for his volume overload. Since the ulceration is improving now on cefuroxime 500 mg every 12 hours. The current skin eruption was thought to be due to has responded well to lasix drip. Now on oral lasix and improving, likely to ECF tomorrow, will need local wound care, followup at [facility] and 7 days of cefuroxime Status: Acute (2) H/O aortic valve replacement Status: Acute (3) Warfarin-induced coagulopathy Status: Acute (4) Obesity Status: Acute
[2016-08-12 21:26] LABS: Glucose,Whole Blood 132 mg/dL (75-99)
[2016-08-13] MEDS: LEVOTHYROXINE 25 MCG TAB PO SCH (06:29)
[2016-08-13] MEDS: HYDROcodone/APAP 5-325MG 1 EACH TAB PO PRN (06:32)
[2016-08-13] MEDS: diphenhydrAMINE 25 MG CAP PO PRN (06:33)
[2016-08-13 07:06] LABS: Glucose,Whole Blood 107 mg/dL (75-99)
[2016-08-13] MEDS: CEFUROXIME 250 MG TAB PO SCH (07:48)
[2016-08-13] MEDS: ALLOPURINOL 300 MG TAB PO SCH (07:49)
[2016-08-13] MEDS: FUROSEMIDE 40 MG TAB PO SCH (07:49)
[2016-08-13] MEDS: METOPROLOL TARTRATE 50 MG TAB PO SCH (07:49)
[2016-08-13] MEDS: LISINOPRIL 20 MG TAB PO SCH (07:49)
[2016-08-13] MEDS: ATORVASTATIN 20 MG TAB PO SCH (07:49)
[2016-08-13] MEDS: SPIRONOLACTONE 25 MG TAB PO SCH (07:49)
[2016-08-13] MEDS: SILVER sulfADIAZINE Cream 400 GM 1 APPLIC APPLIC TOPICAL SCH (07:50)
[2016-08-13] MEDS: TRIAMCINOLONE 0.1% CREAM 80 GM TUBE TOPICAL SCH (07:50)
[2016-08-13] MEDS: INSULIN LISPRO (humaLOG) 300 UNIT/3 ML VIAL SQ SCH ×2 (07:51→12:44)
[2016-08-13 08:28] VITALS: BP 116/74; PULSE 70; RESP 18; TEMP 96.9
[2016-08-13 09:16] LABS: Basophils % (A) 0 %; CHCM 31.2; Eosinophils # (A) 0.2 k/uL (0-0.7); Eosinophils % (A) 3 %; HDW 2.76; HGB 10.5 gm/dL (13.0-17.5); Hypochromasia Slight; Luc # (Auto) 0.24; Luc % (Auto) 3; Lymphocytes # (A) 0.5 k/uL (1.0-4.8); Lymphocytes % (A) 7 %; MCH 29.1 pg (25.0-35.0); MCHC 30.1 g/dL (31.0-37.0); MCV 96.8 fL (80.0-100.0); Mean Platelet Volume 7.1; Monocytes # (A) 0.6 k/uL (0-1.0); Monocytes % (A) 9 %; Neutrophils # (A) 5.6 k/uL (1.3-7.7); Neutrophils % (A) 79 %; RBC 3.62 m/uL (4.30-5.90); RDW 15.9 % (11.5-15.5); WBC 7.1 k/uL (3.8-10.6); WBC (Perox) 7.08
[2016-08-13 09:27] LABS: ALT 39 U/L (21-72); AST 35 U/L (17-59); Alkaline Phosphatase 159 U/L (38-126); Anion Gap 11 mmol/L; Blood Urea Nitrogen 70 mg/dL (9-20); Calcium 10.3 mg/dL (8.4-10.2); Carbon Dioxide 33 mmol/L (22-30); Chloride 97 mmol/L (98-107); Glucose 111 mg/dL (74-99); Non-African American GFR(MDRD) 60 (>60 ml/min/1.73 sqM); Sodium 141 mmol/L (137-145); Total Bilirubin 1.8 mg/dL (0.2-1.3); Total Protein 8.4 g/dL (6.3-8.2)
[2016-08-13 12:43] LABS: Glucose,Whole Blood 117 mg/dL (75-99)
--- NOTE | 2016-08-13 13:04 | P.DS ---
Providers Date of admission: 07/30/16 11:39 Expected date of discharge: 08/13/16 Attending physician: Pilar Rueda Consults: 07/30/16 12:24 Consult Physician Routine Consulting Provider: Scott Juan Consult Reason/Comments: syncope, CHF Do you want consulting provider notified?: Yes 07/30/16 12:25 Consult Physician Routine Consulting Provider: Ish Houser Consult Reason/Comments: bilateral lower extremities cellulitis with ulcers Do you want consulting provider notified?: Yes Primary care physician: [facility] Course: Discharge diagnosis #1 worsening dyspnea, secondary to acute diastolic congestive heart failure exacerbation, echocardiogram showed preserved ejection fraction of 50-55%. Elevated right ventricular and diastolic pressure with diastolic dysfunction. #2 severe pulmonary hypertension and cor pulmonale with diffuse anasarca: #3 coagulopathy, Coumadin was discontinued. Patient was switched to Xarelto for his atrial fibrillation #4 bilateral lower extremity cellulitis was large ulcers, infectious disease consultation was requested, antibiotic switched to oral. Doppler ultrasound negative for DVT . Currently on Ceftin. Infectious disease recommending Ceftin for 7 more days. Continue with local wound care. Encouraged patient to keep legs elevated. Followed by infectious disease. Arterial Doppler was normal #5 underlying history of [id number] diabetes mellitus. Episodes of hypoglycemia. At time of discharge we'll resume metformin. Glipizide was discontinued #6 underlying history of gout continue allopurinol #7 bilateral lower extremity purpura likely related to Coumadin #8 syncopal episode prior to admission #9 acute kidney injury due to diuresis and. Kidney functions have improved and normalized. Hospital course Patient is a 66-year-old male with known history of aortic valve replacement and history of cardiomyopathy who was admitted to [facility] with multiple medical problems including syncopal episode, worsening shortness of breath with evidence of acute exacerbation of congestive heart failure, bilateral lower extremity cellulitis with large ulcerations on bilateral pretibial areas. He was admitted to telemetry floor he was started on IV Lasix he was seen by cardiology and by infectious disease. Patient had prolonged hospitalization due to the fact that he was not showing improvement in his lower extremity edema even with IV Lasix. He was still gaining weight. Eventually he was placed on IV Lasix drip and Zaroxolyn was added. Eventually Aldactone added as well. Patient began to notice weight loss. And decrease in the swelling was lower extremities. Patient was switched over to oral Lasix. And he is maintained on the Aldactone. Cardiology had cleared him for discharge. He also had multiple ulcers in the lower extremities with purpura. The purpura felt likely related to the Coumadin. Coumadin was discontinued as well as his aspirin. And his legs are showing improvement. During this admission Coumadin was discontinued and patient was started on Xarelto. Also note for the lower extremity cellulitis and ulcers infectious diseases recommending Ceftin for 7 more days and to continue with the local wound care with the Silvadene and the Triamcinolone cream. We'll have patient follow-up with Dr. Houser at the wound care center in one week. Patient will be discharged to [facility] in [facility]. Note that he did have some hypoglycemia during this admission his glipizide was discontinued. At this time the metformin will be resumed. Continue holding the glipizide. Also will restart patient's aspirin at time of discharge. Patient is medically stable for discharge. He has been cleared by consulting physicians. Please refer to chart for any further details. Patient Condition at Discharge: Stable Plan - Discharge Summary New Discharge Prescriptions: HYDROcodone/APAP 5-325MG [[place] 5-325] 1 each PO Q6HR PRN #40 tab PRN Reason: Pain Discharge Medication List Allopurinol [Zyloprim] 300 mg PO DAILY 07/30/16 [History] Aspirin [Adult Low Dose Aspirin EC] 81 mg PO DAILY 07/30/16 [History] Ergocalciferol [Vitamin D2 (DRISDOL)] 50,000 unit PO TH 07/30/16 [History] Furosemide [Lasix] 40 mg PO BID 07/30/16 [History] Lisinopril [Zestril] 20 mg PO DAILY 07/30/16 [History] Simvastatin [Zocor] 40 mg PO HS 07/30/16 [History] metFORMIN HCL [Glucophage] 1,000 mg PO DAILY 07/30/16 [History] Vision Formula With Lutein 1 tab PO DAILY 07/31/16 [History] Cefuroxime [Ceftin] 500 mg PO BID #14 tab 08/13/16 [Rx] HYDROcodone/APAP 5-325MG [[place] 5-325] 1 each PO Q6HR PRN #40 tab 08/13/16 [Rx] Levothyroxine Sodium [Synthroid] 25 mcg PO 0600 tab 08/13/16 [Rx] Metoprolol Tartrate [Lopressor] 50 mg PO BID tab 08/13/16 [Rx] Rivaroxaban [Xarelto] 20 mg PO AC-SUPPER tab 08/13/16 [Rx] SILVER sulfADIAZINE Cream [Silvadene Cream] 1 applic TOPICAL BID 7 Days [Rx] Spironolactone [Aldactone] 25 mg PO DAILY tab 08/13/16 [Rx] Triamcinolone 0.1% Cream [Kenalog] 1 applic TOPICAL TID 7 Days 08/13/16 [Rx] Follow up Appointment(s)/Referral(s): [facility], [NON-STAFF] - Activity/Diet/Wound Care/Special Instructions: Diet: cardiac, diabetic Activity: as tolerated Ok to d/c to ECF Discharge Disposition: TRANSFER TO SNF/ECF
--- NOTE | 2016-08-13 20:16 | P.PN ---
Subjective Principal diagnosis: syncope with lower extremity edema 66-year-old male who is somewhat of a poor historian presents to the physician's office with a complaint of an episode of syncope and increasing weakness. The patient apparently has been ill over the last year with increasing difficulties with fatigue and worsening exercise tolerance. He developed increasing lower extremity edema and ulcerations. He was caring for them with local products at home including baby powder. This was not working and the ulcerations were continuing to increase in number and size. Not until he had the syncopal event at his home where he bruised his left arm that he finally seek care. It appears his 2 brothers helped him seek care. He lives in a home with his 90-year-old mother. The 2 other brothers do help with the overall care such that they do the shopping and help with the cooking. The patient apparently has been medically disabled since his mid 50s. With a Lasix drip there has been a significant improvement of his volume overload. He has a 8lb decrease in the last day. He is less short of breath and feeling better overall. Lower extremity edema is also improved. The new rashes started in the lower extremities is improving and improving. Objective - Vital Signs Vital signs: Vital Signs Temp 96.9 F L 08/13/16 07:00 Pulse 70 08/13/16 07:00 Resp 18 08/13/16 07:00 BP 116/74 08/13/16 07:00 Pulse Ox 93 L 08/13/16 07:00 Intake & Output 08/13/16 08/13/16 08/14/16 06:59 18:59 06:59 Intake Total 720 Balance 720 Weight 120.2 kg Intake: Oral 720 Other: # Voids 3 2 - Exam Obese 66-year-old male seems to be comfortable sitting upright on the bedside. HEENT: Anicteric conjunctiva are pink and moist nasal mucosa grossly intact without significant lesions, there is no thrush. Poor dentition Neck: The neck is supple without significant lymphadenopathy or thyromegaly. Lungs: There is symmetrical air entry, few basilar crackles scattered wheezes without zeus bronchial sounds or egophony being noted Heart: Irregular with an audible S1 and S2. Soft S4 2/6 systolic murmur left sternal border that radiates to the carotid PMI is nondisplaced Abdomen: Obese, Positive bowel sounds soft and nontender without palpable masses or organomegaly. There was no guarding or rebound. Extremities: The upper extremities show evidence of the bruising to the left arm proximal to the elbow, there is evidence of muscular wasting. The lower extremities have evidence of just trace edema at this time. Skin patient is evidence of the multiple full-thickness ulcerations on the bilateral lower extremities with eschar at the base. He does have a few lesions on the abdominal wall on his pannus. The bruises left arm is without any ulceration. Although does have evidence of some rash-like changes of the bilateral upper extremities and he is not clear how long that has been present. The lower extremity ulcerations have been present for at least a year, improving with the Silvadene wrap. The eschars are showing some softening. Attempts to start remove the eschars resulted in too much pain. We'll need more time with wraps. However now has evidence of the purpuric rash in the lower extremities from the knee distally. It was improving but on the posterior aspect of the left knee is some increased irritation. Responding to the current steroid therapy that has been started. Neuro: Awake alert oriented to person place and time. - Labs CBC & Chem 7: 08/13/16 08:43 08/13/16 08:40 Labs: Abnormal Lab Results - Last 24 Hours (Table) 08/12/16 08/13/16 08/13/16 Range/Units 21:18 07:04 08:40 RBC (4.30-5.90) m/uL Hgb (13.0-17.5) gm/dL Hct (39.0-53.0) % MCHC (31.0-37.0) g/dL RDW (11.5-15.5) % Lymphocytes # (1.0-4.8) k/uL Chloride 97 L (98-107) mmol/L Carbon Dioxide 33 H (22-30) mmol/L BUN 70 H (9-20) mg/dL Glucose 111 H (74-99) mg/dL POC Glucose (mg/dL) 132 H 107 H (75-99) mg/dL Calcium 10.3 H (8.4-10.2) mg/dL Total Bilirubin 1.8 H (0.2-1.3) mg/dL Alkaline Phosphatase 159 H (38-126) U/L Total Protein 8.4 H (6.3-8.2) g/dL 08/13/16 08/13/16 Range/Units 08:43 12:27 RBC 3.62 L (4.30-5.90) m/uL Hgb 10.5 L (13.0-17.5) gm/dL Hct 35.0 L (39.0-53.0) % MCHC 30.1 L (31.0-37.0) g/dL RDW 15.9 H (11.5-15.5) % Lymphocytes # 0.5 L (1.0-4.8) k/uL Chloride (98-107) mmol/L Carbon Dioxide (22-30) mmol/L BUN (9-20) mg/dL Glucose (74-99) mg/dL POC Glucose (mg/dL) 117 H (75-99) mg/dL Calcium (8.4-10.2) mg/dL Total Bilirubin (0.2-1.3) mg/dL Alkaline Phosphatase (38-126) U/L Total Protein (6.3-8.2) g/dL Laboratory Results WBC 7.1 k/uL (3.8-10.6) 08/13/16 08:43 RBC 3.62 m/uL (4.30-5.90) L 08/13/16 08:43 Hgb 10.5 gm/dL (13.0-17.5) L 08/13/16 08:43 Hct 35.0 % (39.0-53.0) L 08/13/16 08:43 MCV 96.8 fL (80.0-100.0) 08/13/16 08:43 MCH 29.1 pg (25.0-35.0) 08/13/16 08:43 MCHC 30.1 g/dL (31.0-37.0) L 08/13/16 08:43 RDW 15.9 % (11.5-15.5) H 08/13/16 08:43 Plt Count 308 k/uL (150-450) 08/13/16 08:43 Neutrophils % 79 % 08/13/16 08:43 Lymphocytes % 7 % 08/13/16 08:43 Monocytes % 9 % 08/13/16 08:43 Eosinophils % 3 % 08/13/16 08:43 Basophils % 0 % 08/13/16 08:43 Neutrophils # 5.6 k/uL (1.3-7.7) 08/13/16 08:43 Lymphocytes # 0.5 k/uL (1.0-4.8) L 08/13/16 08:43 Monocytes # 0.6 k/uL (0-1.0) 08/13/16 08:43 Eosinophils # 0.2 k/uL (0-0.7) 08/13/16 08:43 Basophils # 0.0 k/uL (0-0.2) 08/13/16 08:43 Hypochromasia Slight 08/13/16 08:43 Anisocytosis Slight 08/12/16 07:49 Macrocytosis Slight 08/08/16 05:54 ESR 50 mm/hr (0-15) H 07/31/16 05:31 PT 18.2 sec (9.0-12.0) H 08/12/16 07:49 INR 1.9 (<1.1) 08/12/16 07:49 Sodium 141 mmol/L (137-145) 08/13/16 08:40 Potassium 5.0 mmol/L (3.5-5.1) 08/13/16 08:40 Chloride 97 mmol/L (98-107) L 08/13/16 08:40 Carbon Dioxide 33 mmol/L (22-30) H 08/13/16 08:40 Anion Gap 11 mmol/L 08/13/16 08:40 BUN 70 mg/dL (9-20) H 08/13/16 08:40 Creatinine 1.21 mg/dL (0.66-1.25) 08/13/16 08:40 Est GFR (MDRD) Af Amer >60 (>60 ml/min/1.73 sqM) 08/13/16 08:40 Est GFR (MDRD) Non-Af 60 (>60 ml/min/1.73 sqM) 08/13/16 08:40 Glucose 111 mg/dL (74-99) H 08/13/16 08:40 POC Glucose (mg/dL) 117 mg/dL (75-99) H 08/13/16 12:27 POC Glu [employer] [place] 08/13/16 12:[address] Glu mg/dL 117 mg/dL 07/30/16 13:50 Hemoglobin A1c 5.7 % (4.2-6.1) 07/30/16 13:50 Uric Acid 3.9 mg/dL (3.5-8.5) 08/05/16 05:39 Calcium 10.3 mg/dL (8.4-10.2) H 08/13/16 08:40 Magnesium 2.5 mg/dL (1.6-2.3) H 08/12/16 07:49 Total Bilirubin 1.8 mg/dL (0.2-1.3) H 08/13/16 08:40 AST 35 U/L (17-59) 08/13/16 08:40 ALT 39 U/L (21-72) 08/13/16 08:40 Alkaline Phosphatase 159 U/L (38-126) H 08/13/16 08:40 C-Reactive Protein 12.9 mg/L (<10.0) H 07/31/16 05:31 NT-Pro-B Natriuret Pep 5800 pg/mL 07/30/16 12:44 Total Protein 8.4 g/dL (6.3-8.2) H 08/13/16 08:40 Albumin 4.2 g/dL (3.5-5.0) 08/13/16 08:40 Prealbumin 12 mg/dL (18-36) L 07/31/16 05:31 TSH 4.720 mIU/L (0.465-4.680) H 07/30/16 12:44 Hepatitis A IgM Ab NEGATIVE 07/31/16 05:31 Hep Bs Antigen Negative 07/31/16 05:31 Hep B Core IgM Ab NEGATIVE 07/31/16 05:31 Hep C IgG Ab Negative (Negative) 07/31/16 05:31 Miscellaneous Test PT/INR 08/06/16 05:48 Misc Test Result 08/06/16 05:48 Microbiology 07/30/16 17:47 Leg - Right Gram Stain - Final 07/30/16 17:47 Leg - Right Wound Culture - Final Staphylococcus aureus Strep pyogenes (grp a) Assessment and Plan (1) Lower extremity ulceration Narrative/Plan: 66-year-old male who has a history of significant underlying medical issues including aortic valve replacement and a recent bout of syncope. He relates to about a one-year history of ulcerations to his bilateral lower extremities have been worsening over time. Is doing some in-home care such as local creams and baby powder which has not helped the ulcers improved. Because of the syncopal event in his worsening functional status he was brought to Hospital with concerns to worsening of congestive heart failure. Echocardiogram has been ordered as has carotid Dopplers. These are pending at this time. The patient is evidence of chronic lower extremity ulcerations and arterial Dopplers are in process and awaited but the venous studies show notice any deep venous thrombosis In the meantime cultures obtained and local wound care with Silvadene and a light wrap will be applied. The patient was concerned that he could be at risk for losing his legs. We discussed at the moment that workup is needed but he does not have evidence of gangrenous changes necessitating amputation at this time. His diabetes appears to be well controlled Evaluation of his cardiovascular status is in process to evaluate impact of his cardiovascular status on his lower extremities. Given his obesity and abnormal liver functions hepatitis panel was checked and is negative for viral hepatitis. Culture did show evidence of MSSA as well as strep Continue local wound care with Silvadene and wraps and elevation. Is applied personally today. Continue with treatment for his volume overload. Since the ulceration is improving now on cefuroxime 500 mg every 12 hours. The current skin eruption was thought to be due to has responded well to lasix drip. Now on oral lasix and improving, likely to ECF tomorrow, will need local wound care, followup at [facility] and 7 days of cefuroxime Status: Acute (2) H/O aortic valve replacement Status: Acute (3) Warfarin-induced coagulopathy Status: Acute (4) Obesity Status: Acute
== END 2016-08-13 15:18 | DRG 602 ==
LOC: 6SEL 11:39 → 4MS4W 08-11 12:02
PROVIDERS: ADMIT Internal Medicine; ATTEND Internal Medicine
DX: L03.115 Cellulitis of right lower limb (principal); I50.33 Acute on chronic diastolic (congestive) heart failure; I47.2 Ventricular tachycardia; N17.9 Acute kidney failure, unspecified; I42.9 Cardiomyopathy, unspecified; E11.649 Type 2 diabetes mellitus with hypoglycemia without coma; D69.0 Allergic purpura; L97.919 Non-pressure chronic ulcer of unspecified part of right lower leg with unspecified severity; L97.929 Non-pressure chronic ulcer of unspecified part of left lower leg with unspecified severity; I27.2 Other secondary pulmonary hypertension; I11.0 Hypertensive heart disease with heart failure; L03.116 Cellulitis of left lower limb; T45.515A Adverse effect of anticoagulants, initial encounter; E03.9 Hypothyroidism, unspecified; E66.01 Morbid (severe) obesity due to excess calories; E78.5 Hyperlipidemia, unspecified; I27.81 Cor pulmonale (chronic); I35.1 Nonrheumatic aortic (valve) insufficiency; I48.2 Chronic atrial fibrillation; M10.9 Gout, unspecified; R79.1 Abnormal coagulation profile; T50.2X5A Adverse effect of carbonic-anhydrase inhibitors, benzothiadiazides and other diuretics, initial encounter; Z79.4 Long term (current) use of insulin; Z79.82 Long term (current) use of aspirin; Z82.49 Family history of ischemic heart disease and other diseases of the circulatory system; Z87.891 Personal history of nicotine dependence; Z95.2 Presence of prosthetic heart valve
CPT/HCPCS: 71020; 80048; 80053; 80074; 83036; 83735; 83880; 84132; 84134; 84443; 84550; 85025; 85610; 85652; 86140; 87070; 87077; 87186; 87205; 93306; 93880; 93923; 93970

== ENCOUNTER 2016-10-08 11:00 | Inpatient (IN) | payer MEDICARE ==
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
[2016-10-08 13:22] LABS: Calcium 9.8 mg/dL (8.4-10.2); Potassium 5.7 mmol/L (3.5-5.1); Total Bilirubin 0.7 mg/dL (0.2-1.3); Total Protein 8.1 g/dL (6.3-8.2)
[2016-10-08 13:23] LABS: Glucose,Whole Blood 116 mg/dL (75-99)
[2016-10-08] MEDS ORDERED: HYDROcodone/APAP 10-325MG 1 EACH TAB PO PRN (13:24)
[2016-10-08] MEDS ORDERED: GLIMEPIRIDE 1 MG TAB PO PRN (13:24)
[2016-10-08 13:30] LABS: Anisocytosis Slight; Basophils % (A) 0 %; CH 29.9; CHCM 30.1; Eosinophils # (A) 0.2 k/uL (0-0.7); Eosinophils % (A) 2 %; Hypochromasia Marked; Luc # (Auto) 0.27; Luc % (Auto) 3; Lymphocytes # (A) 0.9 k/uL (1.0-4.8); Lymphocytes % (A) 10 %; MCH 29.5 pg (25.0-35.0); MCHC 29.4 g/dL (31.0-37.0); MCV 100.3 fL (80.0-100.0); Macrocytosis Moderate; Monocytes # (A) 0.6 k/uL (0-1.0); Monocytes % (A) 6 %; Neutrophils # (A) 7.7 k/uL (1.3-7.7); Neutrophils % (A) 80 %; Poikilocytosis Slight; RBC 1.99 m/uL (4.30-5.90); RDW 19.3 % (11.5-15.5); WBC 9.7 k/uL (3.8-10.6); WBC (Perox) 9.76
[2016-10-08] MEDS ORDERED: FUROSEMIDE 10 MG/ML 2 ML VIAL IV ONE (13:31)
[2016-10-08 13:38] LABS: HGB 5.9 gm/dL (13.0-17.5)
[2016-10-08] MEDS ORDERED: SODIUM POLYSTYRENE SULFONATE 15 GM/60 ML BOTTLE PO STA (13:38)
[2016-10-08] MEDS: PANTOPRAZOLE 40 MG/10 ML VIAL IVP SCH (14:11)
[2016-10-08] MEDS: SODIUM CHLORIDE 0.9% 1,000 ML IV SCH (14:11)
[2016-10-08 14:45] LABS: Hemoglobin A1C 4.8 % (4.2-6.1)
--- NOTE | 2016-10-08 14:55 | XR ---
2 view abdomen HISTORY: Constipation, hypotension 2 views of the abdomen on 3 images No comparisons There is no bowel obstruction or pneumoperitoneum evident. Vascular calcifications are present within the pelvis. Degenerative disc changes in the visualized spine. There are some distended loops of sma ll bowel present. Patient is post median sternotomy. No evident pneumoperitoneum. Exam somewhat limit ed by patient body habitus. Lung bases are clear. Suspect heart is enlarged. IMPRESSION: Consider underlying enteritis or ileus, follow-up as indicated should bowel obstruction b e suspected clinically. Degenerative disc disease, postop change.
[2016-10-08] MEDS ORDERED: FUROSEMIDE 40 MG TAB PO SCH (16:00)
[2016-10-08 17:10] LABS: Glucose,Whole Blood 120 mg/dL (75-99)
[2016-10-08] MEDS: INSULIN LISPRO (humaLOG) 300 UNIT/3 ML VIAL SQ SCH ×2 (17:18→21:17)
[2016-10-08] MEDS: METOPROLOL TARTRATE 25 MG TAB PO SCH (20:04)
[2016-10-08] MEDS: ATORVASTATIN 20 MG TAB PO SCH (20:04)
[2016-10-08 20:50] LABS: Glucose,Whole Blood 133 mg/dL (75-99)
[2016-10-09] MEDS: LEVOTHYROXINE 25 MCG TAB PO SCH (05:38)
[2016-10-09 06:54] LABS: Glucose,Whole Blood 111 mg/dL (75-99)
[2016-10-09] MEDS: INSULIN LISPRO (humaLOG) 300 UNIT/3 ML VIAL SQ SCH ×4 (08:13→22:32)
[2016-10-09] MEDS ORDERED: SPIRONOLACTONE 25 MG TAB PO SCH (09:00)
[2016-10-09] MEDS: SODIUM CHLORIDE 0.9% 1,000 ML IV SCH (09:01)
[2016-10-09] MEDS: VIT A,C & E-LUTEIN-MINERALS 1 EACH TAB PO SCH (09:01)
[2016-10-09] MEDS: METOPROLOL TARTRATE 25 MG TAB PO SCH ×2 (09:01→22:33)
[2016-10-09] MEDS: ALLOPURINOL 300 MG TAB PO SCH (09:01)
[2016-10-09] MEDS: PANTOPRAZOLE 40 MG/10 ML VIAL IVP SCH (09:01)
[2016-10-09 10:04] LABS: Calcium 9.1 mg/dL (8.4-10.2); Potassium 4.8 mmol/L (3.5-5.1); Total Bilirubin 1.5 mg/dL (0.2-1.3); Total Protein 7.1 g/dL (6.3-8.2)
[2016-10-09 10:21] LABS: Anisocytosis Slight; Basophils % (A) 0 %; CH 30.3; CHCM 31.6; Eosinophils # (A) 0.3 k/uL (0-0.7); Eosinophils % (A) 4 %; HCT 23.1 % (39.0-53.0); HDW 4.14; HGB 7.2 gm/dL (13.0-17.5); Hypochromasia Moderate; Luc % (Auto) 3; Lymphocytes # (A) 0.6 k/uL (1.0-4.8); Lymphocytes % (A) 9 %; MCH 30.4 pg (25.0-35.0); MCHC 31.3 g/dL (31.0-37.0); Macrocytosis Slight; Mean Platelet Volume 7.5; Monocytes # (A) 0.4 k/uL (0-1.0); Monocytes % (A) 6 %; Neutrophils # (A) 5.2 k/uL (1.3-7.7); Neutrophils % (A) 78 %; Poikilocytosis Moderate; RBC 2.38 m/uL (4.30-5.90); RDW 18.6 % (11.5-15.5); WBC 6.7 k/uL (3.8-10.6); WBC (Perox) 7.19
[2016-10-09 12:10] LABS: Glucose,Whole Blood 141 mg/dL (75-99)
[2016-10-09 12:20] LABS: % Iron Saturation 5.2 % (20-50)
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
[2016-10-09] MEDS ORDERED: PEG 3350-NA SULF,BICARB,CL/KCL 4,000 ML BOTTLE PO ONE (16:00)
[2016-10-09 17:14] LABS: Glucose,Whole Blood 117 mg/dL (75-99)
--- NOTE | 2016-10-09 19:47 | P.PN ---
Subjective Principal diagnosis: Severe symptomatic anemia This is a 66-year-old male with a known past medical history of diastolic congestive heart failure, aortic valve replacement, atrial fibrillation on Xarelto for anticoagulation, diabetes mellitus, chronic bilateral leg ulcers in which he is followed by Dr. Houser at [facility], hypertension, hypothyroidism, moderate to severe tricuspid regurgitation, and severe pulmonary hypertension. Patient presented to his office with severe fatigue he had evidence of fear anemia Hemoglobin in office was 6.0. Patient reports noticing black stools about a month ago. Reports that last bowel movement was about 5 days ago. States that he has been very dizzy and felt like he was going to pass out. He also notes that his lisinopril was decreased to 10 mg daily and then because of his dizziness he stopped taking it. Patient is also been more fatigued. Review of systems He denies any chest pain or shortness of breath. Denies any nausea or vomiting. Denies any difficulty urinating. Denies having any previous EGD or colonoscopy. Denies any fever or chills or sweats. Denies any abdominal pain. Denies any bright red blood in stools. Objective - Vital Signs Vital signs: Vital Signs Temp 97.6 F 10/09/16 15:00 Pulse 76 10/09/16 15:00 Resp 19 10/09/16 15:00 BP 117/60 10/09/16 15:00 Pulse Ox 98 10/09/16 15:00 Intake & Output 10/09/16 10/09/16 10/10/16 06:59 18:59 06:59 Intake Total 0 Output Total 1500 Balance -1500 Intake: Blood Product 0 Rc Pheresis As-3 Unit 0 [id number] Output: Urine 1500 Other: Voiding Method Urinal # Voids 3 # Bowel Movements 2 - Exam In general patient is alert and oriented in no apparent distress HEENT head normocephalic and atraumatic Neck is supple no JVD no goiter no lymphadenopathy Chest exam reveals distant respiratory sounds with few scattered rhonchi Cardiac exam reveals regular heart sounds no murmurs Abdomen is soft nontender no organomegaly Extremity exam reveals no edema no cyanosis or clubbing - Labs CBC & Chem 7: 10/09/16 09:08 10/09/16 09:08 Labs: Abnormal Lab Results - Last 24 Hours (Table) 10/08/16 10/08/16 10/09/16 Range/Units 13:46 20:50 06:52 RBC (4.30-5.90) m/uL Hgb (13.0-17.5) gm/dL Hct (39.0-53.0) % RDW (11.5-15.5) % Lymphocytes # (1.0-4.8) k/uL BUN (9-20) mg/dL Creatinine (0.66-1.25) mg/dL Glucose (74-99) mg/dL POC Glucose (mg/dL) 133 H 111 H (75-99) mg/dL Iron (49-181) ug/dL % Saturation (20-50) % Total Bilirubin (0.2-1.3) mg/dL AST (17-59) U/L Crossmatch See Detail 10/09/16 10/09/16 10/09/16 Range/Units 09:08 09:08 09:08 RBC 2.38 L (4.30-5.90) m/uL Hgb 7.2 L (13.0-17.5) gm/dL Hct 23.1 L (39.0-53.0) % RDW 18.6 H (11.5-15.5) % Lymphocytes # 0.6 L (1.0-4.8) k/uL BUN 73 H (9-20) mg/dL Creatinine 1.46 H (0.66-1.25) mg/dL Glucose 134 H (74-99) mg/dL POC Glucose (mg/dL) (75-99) mg/dL Iron 23 L (49-181) ug/dL % Saturation 5.2 L (20-50) % Total Bilirubin 1.5 H (0.2-1.3) mg/dL AST 15 L (17-59) U/L Crossmatch 10/09/16 10/09/16 Range/Units 12:03 17:08 RBC (4.30-5.90) m/uL Hgb (13.0-17.5) gm/dL Hct (39.0-53.0) % RDW (11.5-15.5) % Lymphocytes # (1.0-4.8) k/uL BUN (9-20) mg/dL Creatinine (0.66-1.25) mg/dL Glucose (74-99) mg/dL POC Glucose (mg/dL) 141 H 117 H (75-99) mg/dL Iron (49-181) ug/dL % Saturation (20-50) % Total Bilirubin (0.2-1.3) mg/dL AST (17-59) U/L Crossmatch Assessment and Plan Plan: 1. Symptomatic anemia secondary to acute blood loss anemia from possible GI bleed. Patient is reporting dizziness with black stools. Check stool for occult blood. Check CBC. Hemoglobin in office was 6.0. We'll type and cross and transfuse 2 units of blood. Hold Xarelto. Consult GI service for possible endoscopy. Start IV Protonix 40 mg daily plans are for EGD and colonoscopy tomorrow 2. Constipation: no abdominal pain. Check abdominal x-ray 3. History of chronic diastolic CHF. No evidence of exacerbation. Continue home Lasix 4. Hypotension: Blood pressure 98/56. We'll continue with IV fluids. Place parameters around blood pressure medications 5. Diabetes mellitus type 2: Check hemoglobin A1c. Add sliding scale coverage. Resume the Amaryl. Hold Glucophage while in hospital 6. Chronic bilateral lower extremity ulcers. Followed by Dr. Houser in the wound care center. Patient saw Dr. Houser yesterday and had dressing changed. He is been following in the wound care center weekly. 7. History of aortic valve replacement 8. History of moderate to severe tricuspid regurgitation 9. Severe pulmonary hypertension GI prophylaxis IV Protonix
[2016-10-09 21:29] LABS: Glucose,Whole Blood 120 mg/dL (75-99)
[2016-10-09] MEDS: ATORVASTATIN 20 MG TAB PO SCH (22:33)
--- NOTE | 2016-10-09 22:58 | P.CON ---
Consult Note - . Consult date: 10/09/16 Assessment/Plan:: This is a 66-year-old male well known to ID service as he was seen on his recent admission in August 02 [facility] and is followed in the wound healing Center for bilateral lower extremity ulcerations. He was last seen there on October 08 and had a surgical debridement done. Patient gives history that one week ago he was having low blood pressure of 80/40 and he is having trouble standing and felt like he was going to pass out. He states that Dr. suárez are changed his lisinopril from 20 mg down to 10 mg but he still didn' t seem to and this helped and he stopped taking the medication couple of days ago. He states he was still feeling dizzy and was having trouble walking. He came into the [facility] as a direct admission and he was found to have a hemoglobin of 5.9 and he is status post 2 units of packed RBCs with hemoglobin of 7.2. He has been on Xarelto for atrial fibrillation which is currently on hold. Patient has been seen by Dr. Saldaña with plan for EGD and colonoscopy tomorrow. Patient is tolerating a clear liquid diet. He denies any nausea, vomiting or diarrhea. He also presented with acute kidney injury and hyperkalemia status post Kayexalate with BUN and 95 and creatinine of 1.7 which is improved to 73 and 1.46. Patient is complaining of severe pain to the bilateral lower extremities due to the ulcers. The left pretibial one is the most painful. please see the consult note as dictated by nurse practitioner Mrs. Daphne Cornejo.As noted patient has significant anemia and is symptomatic. Concerns to gastrointestinal loss given the somewhat normal hemoglobin of a few weeks ago. No other evidence of bleeding is noted. Local wound care to the lower extremities will be utilized with Aquacel and rolled gauze. Elevate at rest. We'll follow the wound center after discharge. No evidence of any new infection at this time. I agree with the evaluation assessment and plan as dicated by UBALDO Cornejo.
[2016-10-10] MEDS: SODIUM CHLORIDE 0.9% 1,000 ML IV SCH (06:15)
[2016-10-10 07:17] LABS: Glucose,Whole Blood 109 mg/dL (75-99)
[2016-10-10] MEDS ORDERED: IV FLUID CONTINUATION 1,000 ML IV ONE (07:40)
[2016-10-10] MEDS ORDERED: PROPOFOL 10 MG/ML 20 ML VIAL IV ONE (07:40)
[2016-10-10] MEDS ORDERED: LIDOCAINE 1% INJ 10MG/ML (20 ML MDV) ONE (07:40)
[2016-10-10] MEDS ORDERED: SODIUM CHLORIDE 0.9% 1,000 ML IV ONE (07:55)
--- NOTE | 2016-10-10 08:11 | P.PCN ---
Date of Procedure: 10/10/16 Procedure(s) Performed: Brief history: Patient is a pleasant 66-year-old white male, scheduled for an elective upper endoscopy as well as colonoscopy as a part of evaluation of severe symptomatic anemia requiring 2 units of blood transfusion. Has been complaining of intermittent dark stools but no obvious GI bleed. He is hence scheduled for an upper endoscopy as well as colonoscopy to evaluate further Procedure performed: Esophagogastroduodenoscopy with biopsy Colonoscopy with biopsy Preoperative diagnosis: Severe symptomatic anemia Intermittent dark stools and Hemoccult positive stool Anesthesia: [facility] Procedure: After informed consent was obtained from the patient was brought into the endoscopy unit and IV sedation was administered by anesthesia under continuous monitoring. Initially upper endoscopy was done. The Olympus GF 160 video endoscope was inserted inserted into the mouth and esophagus intubated without any difficulty and was gradually advanced into the stomach and duodenum and carefully examined. The bulb and second part of the duodenum appeared normal. Biopsies were done from the duodenum to rule out celiac disease. The scope was then withdrawn into the stomach adequately insufflated with air and upon careful examination the antrum had mild gastritis and biopsies were done from this area. The body, cardia and fundus appeared normal. The scope was then withdrawn into the esophagus. The GE junction was located at 40 cm to the incisors. It appeared regular with no erythema erosions or ulcerations. Rest of the esophagus appeared normal. Patient tolerated the procedure well. At this time the patient continued to remain sedation. Initial digital rectal examination was normal. Olympus CF 160 video colonoscope was then inserted into the rectum and gradually advanced to the cecum without any difficulty. Careful examination was performed as the scope was gradually being withdrawn. The prep was excellent. The cecum, ascending colon, transverse colon, descending colon, sigmoid colon and rectum appeared normal. As a 5 mm polyp noted in the cecum that was removed by biopsy. Also there was another 5 mm polyp noted in the ascending colon and in the sigmoid colon that were removed by biopsy. Retroflexion was performed in the rectum and mild internal hemorrhoids were noted. Patient tolerated the procedure well. Impression: 1. Upper endoscopy revealed mild gastritis but no evidence of esophagitis or peptic ulcer disease 2. Colonoscopy revealed 5 mm polyp in the cecum, ascending colon and sigmoid colon all of which were removed by biopsy. Small internal hemorrhoids seen. Recommendations: Findings of this examination were discussed with the patient. He was advised to follow with the biopsy results. If the biopsy shows a tubular adenoma he can have a repeat colonoscopy in 5 years. The meantime he can start on iron supplements and resume anticoagulation.
[2016-10-10] MEDS: ALLOPURINOL 300 MG TAB PO SCH (09:17)
[2016-10-10] MEDS: VIT A,C & E-LUTEIN-MINERALS 1 EACH TAB PO SCH (09:17)
[2016-10-10] MEDS: METOPROLOL TARTRATE 25 MG TAB PO SCH ×2 (09:17→21:43)
[2016-10-10] MEDS: INSULIN LISPRO (humaLOG) 300 UNIT/3 ML VIAL SQ SCH ×6 (09:18→21:43)
[2016-10-10] MEDS: PANTOPRAZOLE 40 MG/10 ML VIAL IVP SCH (09:18)
[2016-10-10] MEDS: LEVOTHYROXINE 25 MCG TAB PO SCH (09:18)
[2016-10-10 09:35] LABS: INR 1.2 (<1.1); Prothrombin Time 12.1 sec (9.0-12.0)
[2016-10-10 09:57] LABS: Anisocytosis Slight; Basophils % (A) 0 %; CH 29.6; CHCM 30.6; Eosinophils # (A) 0.1 k/uL (0-0.7); Eosinophils % (A) 2 %; HCT 24.6 % (39.0-53.0); HDW 3.89; HGB 7.3 gm/dL (13.0-17.5); Hypochromasia Marked; Luc # (Auto) 0.14; Luc % (Auto) 2; Lymphocytes # (A) 0.5 k/uL (1.0-4.8); Lymphocytes % (A) 7 %; MCH 29.1 pg (25.0-35.0); MCHC 29.8 g/dL (31.0-37.0); MCV 97.7 fL (80.0-100.0); Macrocytosis Slight; Mean Platelet Volume 7.1; Monocytes # (A) 0.4 k/uL (0-1.0); Monocytes % (A) 6 %; Neutrophils # (A) 5.5 k/uL (1.3-7.7); Neutrophils % (A) 83 %; Poikilocytosis Slight; RBC 2.52 m/uL (4.30-5.90); WBC 6.7 k/uL (3.8-10.6); WBC (Perox) 6.97
[2016-10-10 10:09] LABS: ALT 22 U/L (21-72); AST 17 U/L (17-59); Alkaline Phosphatase 69 U/L (38-126); Anion Gap 14 mmol/L; Blood Urea Nitrogen 43 mg/dL (9-20); Calcium 9.1 mg/dL (8.4-10.2); Carbon Dioxide 22 mmol/L (22-30); Chloride 106 mmol/L (98-107); Glucose 116 mg/dL (74-99); Non-African American GFR(MDRD) >60 (>60 ml/min/1.73 sqM); Potassium 4.5 mmol/L (3.5-5.1); Sodium 142 mmol/L (137-145); Total Bilirubin 1.3 mg/dL (0.2-1.3); Total Protein 7.6 g/dL (6.3-8.2)
[2016-10-10 12:00] LABS: Glucose,Whole Blood 175 mg/dL (75-99)
[2016-10-10 17:06] LABS: Glucose,Whole Blood 177 mg/dL (75-99)
--- NOTE | 2016-10-10 18:01 | P.PN ---
Subjective Principal diagnosis: Severe symptomatic anemia This is a 66-year-old male with a known past medical history of diastolic congestive heart failure, aortic valve replacement, atrial fibrillation on Xarelto for anticoagulation, diabetes mellitus, chronic bilateral leg ulcers in which he is followed by Dr. Houser at [facility], hypertension, hypothyroidism, moderate to severe tricuspid regurgitation, and severe pulmonary hypertension. Patient presented to his office with severe fatigue he had evidence of fear anemia Hemoglobin in office was 6.0. Patient reports noticing black stools about a month ago. Reports that last bowel movement was about 5 days ago. States that he has been very dizzy and felt like he was going to pass out. He also notes that his lisinopril was decreased to 10 mg daily and then because of his dizziness he stopped taking it. Patient is also been more fatigued. Review of systems He denies any chest pain or shortness of breath. Denies any nausea or vomiting. Denies any difficulty urinating. Denies having any previous EGD or colonoscopy. Denies any fever or chills or sweats. Denies any abdominal pain. Denies any bright red blood in stools. Objective - Vital Signs Vital signs: Vital Signs Temp 96.4 F L 10/10/16 15:00 Pulse 60 10/10/16 15:00 Resp 19 10/10/16 15:00 BP 111/59 10/10/16 15:00 Pulse Ox 97 10/10/16 15:00 Intake & Output 10/09/16 10/10/16 10/10/16 18:59 06:59 18:59 Intake Total 500 Output Total 950 Balance -950 500 Weight 105.5 kg Intake: IV 500 Output: Urine 950 Other: Voiding Method Urinal Urinal Urinal # Voids 3 3 # Bowel Movements 2 3 - Exam In general patient is alert and oriented in no apparent distress HEENT head normocephalic and atraumatic Neck is supple no JVD no goiter no lymphadenopathy Chest exam reveals distant respiratory sounds with few scattered rhonchi Cardiac exam reveals regular heart sounds no murmurs Abdomen is soft nontender no organomegaly Extremity exam reveals no edema no cyanosis or clubbing - Labs CBC & Chem 7: 10/10/16 09:11 10/10/16 09:11 Labs: Abnormal Lab Results - Last 24 Hours (Table) 10/09/16 10/10/16 10/10/16 Range/Units 21:28 07:09 09:11 RBC 2.52 L (4.30-5.90) m/uL Hgb 7.3 L (13.0-17.5) gm/dL Hct 24.6 L (39.0-53.0) % MCHC 29.8 L (31.0-37.0) g/dL RDW 18.0 H (11.5-15.5) % Lymphocytes # 0.5 L (1.0-4.8) k/uL PT (9.0-12.0) sec BUN (9-20) mg/dL Glucose (74-99) mg/dL POC Glucose (mg/dL) 120 H 109 H (75-99) mg/dL 10/10/16 10/10/16 10/10/16 Range/Units 09:11 09:11 11:56 RBC (4.30-5.90) m/uL Hgb (13.0-17.5) gm/dL Hct (39.0-53.0) % MCHC (31.0-37.0) g/dL RDW (11.5-15.5) % Lymphocytes # (1.0-4.8) k/uL PT 12.1 H (9.0-12.0) sec BUN 43 H (9-20) mg/dL Glucose 116 H (74-99) mg/dL POC Glucose (mg/dL) 175 H (75-99) mg/dL 10/10/16 Range/Units 17:04 RBC (4.30-5.90) m/uL Hgb (13.0-17.5) gm/dL Hct (39.0-53.0) % MCHC (31.0-37.0) g/dL RDW (11.5-15.5) % Lymphocytes # (1.0-4.8) k/uL PT (9.0-12.0) sec BUN (9-20) mg/dL Glucose (74-99) mg/dL POC Glucose (mg/dL) 177 H (75-99) mg/dL Assessment and Plan Plan: 1. Symptomatic anemia secondary to acute blood loss anemia from possible GI bleed. Patient is reporting dizziness with black stools. Check stool for occult blood. Check CBC. Hemoglobin in office was 6.0. We'll type and cross and transfuse 2 units of blood. Hold Xarelto. Consult GI service for possible endoscopy. Start IV Protonix 40 mg daily plans are for EGD and colonoscopy tomorrow 2. Constipation: no abdominal pain. Check abdominal x-ray 3. History of chronic diastolic CHF. No evidence of exacerbation. Continue home Lasix 4. Hypotension: Blood pressure 98/56. We'll continue with IV fluids. Place parameters around blood pressure medications 5. Diabetes mellitus type 2: Check hemoglobin A1c. Add sliding scale coverage. Resume the Amaryl. Hold Glucophage while in hospital 6. Chronic bilateral lower extremity ulcers. Followed by Dr. Houser in the wound care center. Patient saw Dr. Houser yesterday and had dressing changed. He is been following in the wound care center weekly. 7. History of aortic valve replacement 8. History of moderate to severe tricuspid regurgitation 9. Severe pulmonary hypertension GI prophylaxis IV Protonix GI procedure note and recommendations reviewed Resume Xarelto, start Iron supplements
[2016-10-10] MEDS: RIVAROXABAN 10 MG TAB PO SCH (18:31)
[2016-10-10] MEDS ORDERED: SODIUM FERRIC GLUCONAT-SUCROSE 125 MG in SODIUM CHLORIDE 0.9% 100 ML IVPB ONE (19:00)
[2016-10-10 21:13] LABS: Glucose,Whole Blood 134 mg/dL (75-99)
[2016-10-10] MEDS: ATORVASTATIN 20 MG TAB PO SCH (21:43)
--- NOTE | 2016-10-10 22:49 | P.PN ---
Subjective Principal diagnosis: Symptomatic anemia This is a 66-year-old male well known to ID service as he was seen on his recent admission in August 02 [facility] and is followed in the wound healing Center for bilateral lower extremity ulcerations. He was last seen there on October 08 and had a surgical debridement done. Patient gives history that one week ago he was having low blood pressure of 80/40 and he is having trouble standing and felt like he was going to pass out. He states that Dr. suárez are changed his lisinopril from 20 mg down to 10 mg but he still didn' t seem to and this helped and he stopped taking the medication couple of days ago. He states he was still feeling dizzy and was having trouble walking. He came into the [facility] as a direct admission and he was found to have a hemoglobin of 5.9 and he is status post 2 units of packed RBCs with hemoglobin of 7.2. He has been on Xarelto for atrial fibrillation which is currently on hold. Patient has been seen by Dr. Saldaña with plan for EGD and colonoscopy tomorrow. Patient is tolerating a clear liquid diet. He denies any nausea, vomiting or diarrhea. He also presented with acute kidney injury and hyperkalemia status post Kayexalate with BUN and 95 and creatinine of 1.7 which is improved to 73 and 1.46. Patient is complaining of severe pain to the bilateral lower extremities due to the ulcers. The left pretibial one is the most painful. Much better today after his transfusions. Is receiving some iron therapy. Underwent endoscopy. Some gastritis and polyps were seen. Objective - Vital Signs Vital signs: Vital Signs Temp 96.4 F L 10/10/16 15:00 Pulse 60 10/10/16 15:00 Resp 19 10/10/16 15:00 BP 111/59 10/10/16 15:00 Pulse Ox 97 10/10/16 15:00 Intake & Output 10/10/16 10/10/16 10/11/16 06:59 18:59 06:59 Intake Total 500 Output Total 950 Balance -950 500 Weight 105.5 kg Intake: IV 500 Output: Urine 950 Other: Voiding Method Urinal Urinal # Voids 3 # Bowel Movements 3 - Exam Gen: This is a 66-year-old male. He is sitting up at the edge of the bed and appears to be in no acute distress. The extensive pallor has resolved with his transfusion HEENT: Head is atraumatic, normocephalic. Pupils equal, round. Sclerae is anicteric. NECK: Supple. No JVD. No lymphadenopathy. No thyromegaly. LUNGS: Clear to auscultation. No wheezes or rhonchi. No intercostal retractions. HEART: Regular rate and rhythm. No murmur. ABDOMEN: Soft. Bowel sounds are present. No masses. No tenderness. EXTREMITIES: Multiple ulcers to the bilateral lower extremities. Minimal drainage. No significant edema. No surrounding erythema. NEUROLOGICAL: Patient is awake, alert and oriented x3. Please see the nursing notes for evaluation of the multiple ulcers with photography. - Labs CBC & Chem 7: 10/10/16 09:11 10/10/16 09:11 Labs: Abnormal Lab Results - Last 24 Hours (Table) 10/10/16 10/10/16 10/10/16 Range/Units 07:09 09:11 09:11 RBC 2.52 L (4.30-5.90) m/uL Hgb 7.3 L (13.0-17.5) gm/dL Hct 24.6 L (39.0-53.0) % MCHC 29.8 L (31.0-37.0) g/dL RDW 18.0 H (11.5-15.5) % Lymphocytes # 0.5 L (1.0-4.8) k/uL PT (9.0-12.0) sec BUN 43 H (9-20) mg/dL Glucose 116 H (74-99) mg/dL POC Glucose (mg/dL) 109 H (75-99) mg/dL 10/10/16 10/10/16 10/10/16 Range/Units 09:11 11:56 17:04 RBC (4.30-5.90) m/uL Hgb (13.0-17.5) gm/dL Hct (39.0-53.0) % MCHC (31.0-37.0) g/dL RDW (11.5-15.5) % Lymphocytes # (1.0-4.8) k/uL PT 12.1 H (9.0-12.0) sec BUN (9-20) mg/dL Glucose (74-99) mg/dL POC Glucose (mg/dL) 175 H 177 H (75-99) mg/dL 10/10/16 Range/Units 21:09 RBC (4.30-5.90) m/uL Hgb (13.0-17.5) gm/dL Hct (39.0-53.0) % MCHC (31.0-37.0) g/dL RDW (11.5-15.5) % Lymphocytes # (1.0-4.8) k/uL PT (9.0-12.0) sec BUN (9-20) mg/dL Glucose (74-99) mg/dL POC Glucose (mg/dL) 134 H (75-99) mg/dL Laboratory Results WBC 6.7 k/uL (3.8-10.6) 10/10/16 09:11 RBC 2.52 m/uL (4.30-5.90) L 10/10/16 09:11 Hgb 7.3 gm/dL (13.0-17.5) L 10/10/16 09:11 Hct 24.6 % (39.0-53.0) L 10/10/16 09:11 MCV 97.7 fL (80.0-100.0) 10/10/16 09:11 MCH 29.1 pg (25.0-35.0) 10/10/16 09:11 MCHC 29.8 g/dL (31.0-37.0) L 10/10/16 09:11 RDW 18.0 % (11.5-15.5) H 10/10/16 09:11 Plt Count 345 k/uL (150-450) 10/10/16 09:11 Neutrophils % 83 % 10/10/16 09:11 Lymphocytes % 7 % 10/10/16 09:11 Monocytes % 6 % 10/10/16 09:11 Eosinophils % 2 % 10/10/16 09:11 Basophils % 0 % 10/10/16 09:11 Neutrophils # 5.5 k/uL (1.3-7.7) 10/10/16 09:11 Lymphocytes # 0.5 k/uL (1.0-4.8) L 10/10/16 09:11 Monocytes # 0.4 k/uL (0-1.0) 10/10/16 09:11 Eosinophils # 0.1 k/uL (0-0.7) 10/10/16 09:11 Basophils # 0.0 k/uL (0-0.2) 10/10/16 09:11 Hypochromasia Marked 10/10/16 09:11 Poikilocytosis Slight 10/10/16 09:11 Anisocytosis Slight 10/10/16 09:11 Macrocytosis Slight 10/10/16 09:11 PT 12.1 sec (9.0-12.0) H 10/10/16 09:11 INR 1.2 (<1.1) 10/10/16 09:11 Sodium 142 mmol/L (137-145) 10/10/16 09:11 Potassium 4.5 mmol/L (3.5-5.1) 10/10/16 09:11 Chloride 106 mmol/L (98-107) 10/10/16 09:11 Carbon Dioxide 22 mmol/L (22-30) 10/10/16 09:11 Anion Gap 14 mmol/L 10/10/16 09:11 BUN 43 mg/dL (9-20) H 10/10/16 09:11 Creatinine 1.10 mg/dL (0.66-1.25) 10/10/16 09:11 Est GFR (MDRD) Af Amer >60 (>60 ml/min/1.73 sqM) 10/10/16 09:11 Est GFR (MDRD) Non-Af >60 (>60 ml/min/1.73 sqM) 10/10/16 09:11 Glucose 116 mg/dL (74-99) H 10/10/16 09:11 POC Glucose (mg/dL) 134 mg/dL (75-99) H 10/10/16 21:09 POC Glu [employer] Operator ID Marita Cedillo 10/10/16 21:[address] Glu mg/dL 91 mg/dL 10/08/16 12:56 Hemoglobin A1c 4.8 % (4.2-6.1) 10/08/16 12:56 Calcium 9.1 mg/dL (8.4-10.2) 10/10/16 09:11 Iron 23 ug/dL (49-181) L 05/09/17 09:08 TIBC 442 ug/dL (261-462) 10/09/16 09:08 % Saturation 5.2 % (20-50) L 10/09/16 09:08 Ferritin 48 ng/mL (18-464) 10/09/16 09:08 Total Bilirubin 1.3 mg/dL (0.2-1.3) 10/10/16 09:11 AST 17 U/L (17-59) 10/10/16 09:11 ALT 22 U/L (21-72) 10/10/16 09:11 Alkaline Phosphatase 69 U/L (38-126) 10/10/16 09:11 Total Protein 7.6 g/dL (6.3-8.2) 10/10/16 09:11 Albumin 4.2 g/dL (3.5-5.0) 10/10/16 09:11 Stool Occult Blood Positive (Negative) 10/08/16 17:52 Blood Type O Negative 10/08/16 13:46 Blood Type Recheck No 10/08/16 13:46 Antibody Screen NEGATIVE 10/08/16 13:46 Crossmatch See Detail 10/08/16 13:46 Spec Expiration Date 10/11/2016 - 7556 10/08/16 13:46 Assessment and Plan (1) Anemia due to blood loss, acute Narrative/Plan: Pleasant 66-year-old male presents to Hospital with significant weakness after was seen at the wound Center. As far evidence of an acute blood loss anemia and has undergone EGD and colonoscopy. No active bleeding was seen. Some gastritis and polyps were seen and then removed. He is symptomatically considerably improved after his transfusion. Receiving some fluids and iron therapy today. Continue local wound care as prescribed to the ulcers of the lower extremities. Continue with some compression therapy once he is discharged. Follow back up with the wound center so wraps can be reapplied. Ulcerations are not infected and does not need further antibiotic therapy at this time. Status: Acute (2) Venous ulcers of both lower extremities Status: Acute
[2016-10-11] MEDS: SODIUM CHLORIDE 0.9% 1,000 ML IV SCH ×2 (02:16→21:37)
[2016-10-11] MEDS: LEVOTHYROXINE 25 MCG TAB PO SCH (06:33)
[2016-10-11 08:07] LABS: Glucose,Whole Blood 133 mg/dL (75-99)
[2016-10-11] MEDS: METOPROLOL TARTRATE 25 MG TAB PO SCH ×2 (08:25→21:32)
[2016-10-11] MEDS: ALLOPURINOL 300 MG TAB PO SCH (08:25)
[2016-10-11] MEDS: INSULIN LISPRO (humaLOG) 300 UNIT/3 ML VIAL SQ SCH ×4 (08:25→21:31)
[2016-10-11] MEDS: PANTOPRAZOLE 40 MG/10 ML VIAL IVP SCH (08:26)
[2016-10-11] MEDS ORDERED: ERGOCALCIFEROL 50,000 UNIT CAP PO SCH (09:00)
[2016-10-11 09:43] LABS: Anisocytosis Slight; Basophils % (A) 0 %; CH 29.5; CHCM 29.7; Eosinophils # (A) 0.1 k/uL (0-0.7); Eosinophils % (A) 2 %; HCT 24.3 % (39.0-53.0); HDW 3.66; HGB 7.1 gm/dL (13.0-17.5); Hypochromasia Marked; Luc # (Auto) 0.21; Luc % (Auto) 3; Lymphocytes # (A) 0.6 k/uL (1.0-4.8); Lymphocytes % (A) 9 %; MCH 29.3 pg (25.0-35.0); MCHC 29.3 g/dL (31.0-37.0); MCV 99.9 fL (80.0-100.0); Macrocytosis Slight; Mean Platelet Volume 7.2; Monocytes # (A) 0.6 k/uL (0-1.0); Monocytes % (A) 7 %; Neutrophils % (A) 79 %; Poikilocytosis Slight; RBC 2.43 m/uL (4.30-5.90); RDW 17.4 % (11.5-15.5); WBC 7.6 k/uL (3.8-10.6); WBC (Perox) 7.84
[2016-10-11 09:54] LABS: ALT 20 U/L (21-72); AST 16 U/L (17-59); Alkaline Phosphatase 68 U/L (38-126); Anion Gap 10 mmol/L; Blood Urea Nitrogen 31 mg/dL (9-20); Calcium 8.5 mg/dL (8.4-10.2); Carbon Dioxide 21 mmol/L (22-30); Chloride 105 mmol/L (98-107); Glucose 160 mg/dL (74-99); Non-African American GFR(MDRD) >60 (>60 ml/min/1.73 sqM); Potassium 4.4 mmol/L (3.5-5.1); Sodium 136 mmol/L (137-145); Total Bilirubin 0.9 mg/dL (0.2-1.3); Total Protein 7.2 g/dL (6.3-8.2)
--- NOTE | 2016-10-11 10:06 | P.PN ---
Subjective Principal diagnosis: Symptomatic anemia possible GI bleed Status post EGD colonoscopy yesterday for evaluation of anemia and positive Hemoccult stool. EGD colonoscopy unremarkable no identifiable source to account for his presentation no evidence of active bleeding. Feels better. Shortness of breath improved. Denies chest pain. Denies hematemesis hematochezia or melena. Hemoglobin 7.1. Objective - Vital Signs Vital signs: Vital Signs Temp 96.9 F L 10/11/16 07:00 Pulse 64 10/11/16 07:00 Resp 16 10/11/16 07:00 BP 118/78 10/11/16 07:00 Pulse Ox 100 10/11/16 07:00 Intake & Output 10/10/16 10/11/16 10/11/16 18:59 06:59 18:59 Intake Total 500 500 Balance 500 500 Weight 107 kg Intake: IV 500 Oral 500 Other: Voiding Method Urinal # Voids 3 2 - Exam General appearance: The patient is alert, oriented, in no acute distress. HET: Head is normocephalic and atraumatic. Pupils are equal and reactive. Oropharynx is clear without lesions. Neck: Supple without lymphadenopathy. Trachea midline. Heart: S1 S2. Regular rate and rhythm. Lungs: No crackles or wheezes are heard. Abdomen: Soft, nontender, nondistended with bowel sounds. No peritoneal signs. No palpable organomegaly or masses. Extremities: Normal skin color and turgor. No cyanosis, rash, ulceration, clubbing, or edema. Radial and pedal pulses are 2/4 bilaterally. Neurological: No focal deficits. Strength and sensation are grossly intact. - Labs CBC & Chem 7: 10/11/16 08:43 10/11/16 08:43 Labs: Abnormal Lab Results - Last 24 Hours (Table) 10/10/16 10/10/16 10/10/16 Range/Units 09:11 11:56 17:04 RBC (4.30-5.90) m/uL Hgb (13.0-17.5) gm/dL Hct (39.0-53.0) % MCHC (31.0-37.0) g/dL RDW (11.5-15.5) % Lymphocytes # (1.0-4.8) k/uL Sodium (137-145) mmol/L Carbon Dioxide (22-30) mmol/L BUN 43 H (9-20) mg/dL Glucose 116 H (74-99) mg/dL POC Glucose (mg/dL) 175 H 177 H (75-99) mg/dL AST (17-59) U/L ALT (21-72) U/L 10/10/16 10/11/16 10/11/16 Range/Units 21:09 07:52 08:43 RBC 2.43 L (4.30-5.90) m/uL Hgb 7.1 L (13.0-17.5) gm/dL Hct 24.3 L (39.0-53.0) % MCHC 29.3 L (31.0-37.0) g/dL RDW 17.4 H (11.5-15.5) % Lymphocytes # 0.6 L (1.0-4.8) k/uL Sodium (137-145) mmol/L Carbon Dioxide (22-30) mmol/L BUN (9-20) mg/dL Glucose (74-99) mg/dL POC Glucose (mg/dL) 134 H 133 H (75-99) mg/dL AST (17-59) U/L ALT (21-72) U/L 10/11/16 Range/Units 08:43 RBC (4.30-5.90) m/uL Hgb (13.0-17.5) gm/dL Hct (39.0-53.0) % MCHC (31.0-37.0) g/dL RDW (11.5-15.5) % Lymphocytes # (1.0-4.8) k/uL Sodium 136 L (137-145) mmol/L Carbon Dioxide 21 L (22-30) mmol/L BUN 31 H (9-20) mg/dL Glucose 160 H (74-99) mg/dL POC Glucose (mg/dL) (75-99) mg/dL AST 16 L (17-59) U/L ALT 20 L (21-72) U/L Assessment and Plan (1) Symptomatic anemia Narrative/Plan: Status post EGD colonoscopy with no identifiable source to account for his presentation. Small bowel pathology not entirely excluded. Status: Acute (2) History of atrial fibrillation Status: Chronic (3) H/O aortic valve replacement Status: Chronic (4) Anemia due to blood loss, acute Status: Acute Plan: 1. May resume anticoagulation. 2. If patient has recurrent anemia or signs/symptoms of GI bleeding would recommend small bowel capsule endoscopy. 3. We'll follow as needed. Discharge per medicine. Assessment and plan of care discussed with Dr. Bonilla
[2016-10-11 11:29] LABS: Glucose,Whole Blood 180 mg/dL (75-99)
[2016-10-11] MEDS: VIT A,C & E-LUTEIN-MINERALS 1 EACH TAB PO SCH (12:28)
[2016-10-11] MEDS ORDERED: FUROSEMIDE 10 MG/ML 2 ML VIAL IV ONE (13:19)
--- NOTE | 2016-10-11 13:56 | P.PN ---
Subjective Severe symptomatic anemia This is a 66-year-old male with a known past medical history of diastolic congestive heart failure, aortic valve replacement, atrial fibrillation on Xarelto for anticoagulation, diabetes mellitus, chronic bilateral leg ulcers in which he is followed by Dr. Houser at [facility], hypertension, hypothyroidism, moderate to severe tricuspid regurgitation, and severe pulmonary hypertension. Patient presented to his office with severe fatigue he had evidence of fear anemia Hemoglobin in office was 6.0. Patient reports noticing black stools about a month ago. Reports that last bowel movement was about 5 days ago. States that he has been very dizzy and felt like he was going to pass out. He also notes that his lisinopril was decreased to 10 mg daily and then because of his dizziness he stopped taking it. Patient is also been more fatigued. 10/11/2016 patient reports feeling better today. He was able to ambulate in the hallway. Still not feeling quite himself. However hemoglobin has dropped to 7.1. He did receive IV iron yesterday. GI service has cleared him for discharge. Patient will receive 1 unit of blood today for hemoglobin of 7.1 Objective - Vital Signs Vital signs: Vital Signs Temp 96.9 F L 10/11/16 07:00 Pulse 64 10/11/16 07:00 Resp 16 10/11/16 07:00 BP 118/78 10/11/16 07:00 Pulse Ox 100 10/11/16 07:00 Intake & Output 10/10/16 10/11/16 10/11/16 18:59 06:59 18:59 Intake Total 500 500 Output Total 800 Balance 500 500 -800 Weight 107 kg Intake: IV 500 Oral 500 Output: Urine 800 Other: Voiding Method Urinal # Voids 3 2 3 - Exam Head normocephalic Neck supple Lungs clear to auscultation bilaterally no wheezing or crackles Heart regular rate and rhythm S1-S2, no rub or gallop Abdomen is soft nontender nondistended positive bowel sounds no hepatosplenomegaly Extremities no edema Neuro alert and orientated to 3 - Labs CBC & Chem 7: 10/11/16 08:43 10/11/16 08:43 Labs: Abnormal Lab Results - Last 24 Hours (Table) 10/08/16 10/10/16 10/10/16 Range/Units 13:46 17:04 21:09 RBC (4.30-5.90) m/uL Hgb (13.0-17.5) gm/dL Hct (39.0-53.0) % MCHC (31.0-37.0) g/dL RDW (11.5-15.5) % Lymphocytes # (1.0-4.8) k/uL Sodium (137-145) mmol/L Carbon Dioxide (22-30) mmol/L BUN (9-20) mg/dL Glucose (74-99) mg/dL POC Glucose (mg/dL) 177 H 134 H (75-99) mg/dL AST (17-59) U/L ALT (21-72) U/L Crossmatch See Detail 10/11/16 10/11/16 10/11/16 Range/Units 07:52 08:43 08:43 RBC 2.43 L (4.30-5.90) m/uL Hgb 7.1 L (13.0-17.5) gm/dL Hct 24.3 L (39.0-53.0) % MCHC 29.3 L (31.0-37.0) g/dL RDW 17.4 H (11.5-15.5) % Lymphocytes # 0.6 L (1.0-4.8) k/uL Sodium 136 L (137-145) mmol/L Carbon Dioxide 21 L (22-30) mmol/L BUN 31 H (9-20) mg/dL Glucose 160 H (74-99) mg/dL POC Glucose (mg/dL) 133 H (75-99) mg/dL AST 16 L (17-59) U/L ALT 20 L (21-72) U/L Crossmatch 10/11/16 Range/Units 11:25 RBC (4.30-5.90) m/uL Hgb (13.0-17.5) gm/dL Hct (39.0-53.0) % MCHC (31.0-37.0) g/dL RDW (11.5-15.5) % Lymphocytes # (1.0-4.8) k/uL Sodium (137-145) mmol/L Carbon Dioxide (22-30) mmol/L BUN (9-20) mg/dL Glucose (74-99) mg/dL POC Glucose (mg/dL) 180 H (75-99) mg/dL AST (17-59) U/L ALT (21-72) U/L Crossmatch Assessment and Plan Plan: 1. Symptomatic anemia secondary to acute blood loss anemia from possible GI bleed. As well as iron deficiency anemia. Patient has received IV iron. Hemoglobin has gone down to 7.1. He will receive 1 more units of packed red blood cells. He status post EGD and colonoscopy showing mild gastritis and a 5 mm polypectomy with small internal hemorrhoids. If patient's symptoms persist GI services recommending a small bowel capsule endoscopy 2. Constipation: no abdominal pain. Resolved 3. History of chronic diastolic CHF. No evidence of exacerbation. 4. Hypotension: Blood pressure 98/56. We'll continue with IV fluids. Place parameters around blood pressure medications 5. Diabetes mellitus type 2: Check hemoglobin A1c. Add sliding scale coverage. Resume the Amaryl. Hold Glucophage while in hospital 6. Chronic bilateral lower extremity ulcers. Followed by Dr. Houser in the wound care center. Patient saw Dr. Houser yesterday and had dressing changed. He is been following in the wound care center weekly. 7. History of aortic valve replacement 8. History of moderate to severe tricuspid regurgitation 9. Severe pulmonary hypertension 10. Acute kidney injury on admission with hyperkalemia. Lasix and Aldactone are on hold. Kidney factors had shown improvement. 11. Chronic atrial fibrillation GI service stated is okay to resume Xarelto Anticipate discharge home tomorrow GI prophylaxis IV Protonix
[2016-10-11 17:03] LABS: Glucose,Whole Blood 137 mg/dL (75-99)
[2016-10-11] MEDS: RIVAROXABAN 10 MG TAB PO SCH (17:42)
[2016-10-11 21:25] LABS: Glucose,Whole Blood 119 mg/dL (75-99)
[2016-10-11] MEDS: ATORVASTATIN 20 MG TAB PO SCH (21:32)
--- NOTE | 2016-10-11 23:48 | P.PN ---
Subjective Principal diagnosis: Symptomatic anemia This is a 66-year-old male well known to ID service as he was seen on his recent admission in August 02 [facility] and is followed in the wound healing Center for bilateral lower extremity ulcerations. He was last seen there on October 08 and had a surgical debridement done. Patient gives history that one week ago he was having low blood pressure of 80/40 and he is having trouble standing and felt like he was going to pass out. He states that Dr. suárez are changed his lisinopril from 20 mg down to 10 mg but he still didn' t seem to and this helped and he stopped taking the medication couple of days ago. He states he was still feeling dizzy and was having trouble walking. He came into the [facility] as a direct admission and he was found to have a hemoglobin of 5.9 and he is status post 2 units of packed RBCs with hemoglobin of 7.2. He has been on Xarelto for atrial fibrillation which is currently on hold. Patient has been seen by Dr. Saldaña with plan for EGD and colonoscopy tomorrow. Patient is tolerating a clear liquid diet. He denies any nausea, vomiting or diarrhea. He also presented with acute kidney injury and hyperkalemia status post Kayexalate with BUN and 95 and creatinine of 1.7 which is improved to 73 and 1.46. Patient is complaining of severe pain to the bilateral lower extremities due to the ulcers. The left pretibial one is the most painful. Much better today after his transfusions. Is receiving some iron therapy. Underwent endoscopy. Some gastritis and polyps were seenFeeling better today. Sitting up in a chair. Eating relatively well. Energy levels improved. Did receive his third packed cells today. Objective - Vital Signs Vital signs: Vital Signs Temp 97.2 F L 10/11/16 19:02 Pulse 67 10/11/16 19:02 Resp 16 10/11/16 19:02 BP 106/67 10/11/16 19:02 Pulse Ox 98 10/11/16 19:02 Intake & Output 10/11/16 10/11/16 10/12/16 06:59 18:59 06:59 Intake Total 500 510 0 Output Total 1175 Balance 500 -665 0 Weight 107 kg Intake: Intake, IV Titration 200 Amount Sodium Chloride 0.9% 1, 200 000 ml @ 50 mls/hr IV . Q20H [facility] Rx#:[id number] Oral 500 Blood Product 310 0 Rc Pheresis As-3 Unit 0 0 [id number] Output: Urine 1175 Other: Voiding Method Urinal # Voids 2 1 - Exam Gen: This is a 66-year-old male. He is sitting up in the chair and appears to be in no acute distress. The extensive pallor has resolved with his transfusion HEENT: Head is atraumatic, normocephalic. Pupils equal, round. Sclerae is anicteric. NECK: Supple. No JVD. No lymphadenopathy. No thyromegaly. LUNGS: Clear to auscultation. No wheezes or rhonchi. No intercostal retractions. HEART: Regular rate and rhythm. No murmur. ABDOMEN: Soft. Bowel sounds are present. No masses. No tenderness. EXTREMITIES: Multiple ulcers to the bilateral lower extremities. Minimal drainage. No significant edema. No surrounding erythema. NEUROLOGICAL: Patient is awake, alert and oriented x3. Please see the nursing notes for evaluation of the multiple ulcers with photography. - Labs CBC & Chem 7: 10/11/16 08:43 10/11/16 08:43 Labs: Abnormal Lab Results - Last 24 Hours (Table) 10/08/16 10/11/16 10/11/16 Range/Units 13:46 07:52 08:43 RBC 2.43 L (4.30-5.90) m/uL Hgb 7.1 L (13.0-17.5) gm/dL Hct 24.3 L (39.0-53.0) % MCHC 29.3 L (31.0-37.0) g/dL RDW 17.4 H (11.5-15.5) % Lymphocytes # 0.6 L (1.0-4.8) k/uL Sodium (137-145) mmol/L Carbon Dioxide (22-30) mmol/L BUN (9-20) mg/dL Glucose (74-99) mg/dL POC Glucose (mg/dL) 133 H (75-99) mg/dL AST (17-59) U/L ALT (21-72) U/L Crossmatch See Detail 10/11/16 10/11/16 10/11/16 Range/Units 08:43 11:25 16:57 RBC (4.30-5.90) m/uL Hgb (13.0-17.5) gm/dL Hct (39.0-53.0) % MCHC (31.0-37.0) g/dL RDW (11.5-15.5) % Lymphocytes # (1.0-4.8) k/uL Sodium 136 L (137-145) mmol/L Carbon Dioxide 21 L (22-30) mmol/L BUN 31 H (9-20) mg/dL Glucose 160 H (74-99) mg/dL POC Glucose (mg/dL) 180 H 137 H (75-99) mg/dL AST 16 L (17-59) U/L ALT 20 L (21-72) U/L Crossmatch 10/11/16 Range/Units 21:22 RBC (4.30-5.90) m/uL Hgb (13.0-17.5) gm/dL Hct (39.0-53.0) % MCHC (31.0-37.0) g/dL RDW (11.5-15.5) % Lymphocytes # (1.0-4.8) k/uL Sodium (137-145) mmol/L Carbon Dioxide (22-30) mmol/L BUN (9-20) mg/dL Glucose (74-99) mg/dL POC Glucose (mg/dL) 119 H (75-99) mg/dL AST (17-59) U/L ALT (21-72) U/L Crossmatch Laboratory Results WBC 7.6 k/uL (3.8-10.6) 10/11/16 08:43 RBC 2.43 m/uL (4.30-5.90) L 10/11/16 08:43 Hgb 7.1 gm/dL (13.0-17.5) L 10/11/16 08:43 Hct 24.3 % (39.0-53.0) L 10/11/16 08:43 MCV 99.9 fL (80.0-100.0) 10/11/16 08:43 MCH 29.3 pg (25.0-35.0) 10/11/16 08:43 MCHC 29.3 g/dL (31.0-37.0) L 10/11/16 08:43 RDW 17.4 % (11.5-15.5) H 10/11/16 08:43 Plt Count 318 k/uL (150-450) 10/11/16 08:43 Neutrophils % 79 % 10/11/16 08:43 Lymphocytes % 9 % 10/11/16 08:43 Monocytes % 7 % 10/11/16 08:43 Eosinophils % 2 % 10/11/16 08:43 Basophils % 0 % 10/11/16 08:43 Neutrophils # 6.0 k/uL (1.3-7.7) 10/11/16 08:43 Lymphocytes # 0.6 k/uL (1.0-4.8) L 10/11/16 08:43 Monocytes # 0.6 k/uL (0-1.0) 10/11/16 08:43 Eosinophils # 0.1 k/uL (0-0.7) 10/11/16 08:43 Basophils # 0.0 k/uL (0-0.2) 10/11/16 08:43 Hypochromasia Marked 10/11/16 08:43 Poikilocytosis Slight 10/11/16 08:43 Anisocytosis Slight 10/11/16 08:43 Macrocytosis Slight 10/11/16 08:43 PT 12.1 sec (9.0-12.0) H 10/10/16 09:11 INR 1.2 (<1.1) 10/10/16 09:11 Sodium 136 mmol/L (137-145) L 10/11/16 08:43 Potassium 4.4 mmol/L (3.5-5.1) 10/11/16 08:43 Chloride 105 mmol/L (98-107) 10/11/16 08:43 Carbon Dioxide 21 mmol/L (22-30) L 10/11/16 08:43 Anion Gap 10 mmol/L 10/11/16 08:43 BUN 31 mg/dL (9-20) H 10/11/16 08:43 Creatinine 1.02 mg/dL (0.66-1.25) 10/11/16 08:43 Est GFR (MDRD) Af Amer >60 (>60 ml/min/1.73 sqM) 10/11/16 08:43 Est GFR (MDRD) Non-Af >60 (>60 ml/min/1.73 sqM) 10/11/16 08:43 Glucose 160 mg/dL (74-99) H 10/11/16 08:43 POC Glucose (mg/dL) 119 mg/dL (75-99) H 10/11/16 21:22 POC Glu [employer] ID Marita Cedillo 10/11/16 21:[address] Glu mg/dL 91 mg/dL 10/08/16 12:56 Hemoglobin A1c 4.8 % (4.2-6.1) 10/08/16 12:56 Calcium 8.5 mg/dL (8.4-10.2) 10/11/16 08:43 Iron 23 ug/dL (49-181) L 10/09/16 09:08 TIBC 442 ug/dL (261-462) 10/09/16 09:08 % Saturation 5.2 % (20-50) L 10/09/16 09:08 Ferritin 48 ng/mL (18-464) 10/09/16 09:08 Total Bilirubin 0.9 mg/dL (0.2-1.3) 10/11/16 08:43 AST 16 U/L (17-59) L 10/11/16 08:43 ALT 20 U/L (21-72) L 10/11/16 08:43 Alkaline Phosphatase 68 U/L (38-126) 10/11/16 08:43 Total Protein 7.2 g/dL (6.3-8.2) 10/11/16 08:43 Albumin 4.0 g/dL (3.5-5.0) 10/11/16 08:43 Stool Occult Blood Positive (Negative) 10/08/16 17:52 Blood Type O Negative 10/08/16 13:46 Blood Type Recheck No 10/08/16 13:46 Antibody Screen NEGATIVE 10/08/16 13:46 Crossmatch See Detail 10/08/16 13:46 Spec Expiration Date 10/11/2016 8395 10/08/16 13:46 Assessment and Plan (1) Anemia due to blood loss, acute Narrative/Plan: Pleasant 66-year-old male presents to Hospital with significant weakness after was seen at the [facility]. As far evidence of an acute blood loss anemia and has undergone EGD and colonoscopy. No active bleeding was seen. Some gastritis and polyps were seen and then removed. He is symptomatically considerably improved after his transfusion. Receiving some fluids and iron therapy today. Continue local wound care as prescribed to the ulcers of the lower extremities. Continue with some compression therapy once he is discharged. Follow back up with the wound center so wraps can be reapplied. Ulcerations are not infected and does not need further antibiotic therapy at this time. Status: Acute (2) Venous ulcers of both lower extremities Status: Acute
[2016-10-12] MEDS: LEVOTHYROXINE 25 MCG TAB PO SCH (06:29)
[2016-10-12 07:41] LABS: Glucose,Whole Blood 123 mg/dL (75-99)
[2016-10-12 07:54] VITALS: BP 115/64; PULSE 62; RESP 16; TEMP 97
[2016-10-12] MEDS: INSULIN LISPRO (humaLOG) 300 UNIT/3 ML VIAL SQ SCH ×2 (08:10→13:16)
[2016-10-12 08:38] LABS: Anisocytosis Slight; Basophils % (A) 0 %; CH 29.2; CHCM 30.6; Eosinophils # (A) 0.2 k/uL (0-0.7); Eosinophils % (A) 2 %; HCT 26.4 % (39.0-53.0); HDW 3.93; Hypochromasia Marked; Luc # (Auto) 0.28; Luc % (Auto) 3; Lymphocytes # (A) 0.6 k/uL (1.0-4.8); Lymphocytes % (A) 7 %; MCH 29.4 pg (25.0-35.0); MCHC 30.4 g/dL (31.0-37.0); MCV 96.5 fL (80.0-100.0); Macrocytosis Slight; Monocytes # (A) 0.8 k/uL (0-1.0); Monocytes % (A) 8 %; Neutrophils # (A) 7.3 k/uL (1.3-7.7); Neutrophils % (A) 80 %; Poikilocytosis Slight; RBC 2.74 m/uL (4.30-5.90); RDW 18.5 % (11.5-15.5); WBC 9.2 k/uL (3.8-10.6); WBC (Perox) 9.84
[2016-10-12 09:06] LABS: ALT 25 U/L (21-72); AST 18 U/L (17-59); Alkaline Phosphatase 70 U/L (38-126); Anion Gap 10 mmol/L; Blood Urea Nitrogen 27 mg/dL (9-20); Calcium 8.7 mg/dL (8.4-10.2); Carbon Dioxide 21 mmol/L (22-30); Chloride 106 mmol/L (98-107); Glucose 110 mg/dL (74-99); Non-African American GFR(MDRD) >60 (>60 ml/min/1.73 sqM); Potassium 4.5 mmol/L (3.5-5.1); Sodium 137 mmol/L (137-145); Total Bilirubin 1.3 mg/dL (0.2-1.3); Total Protein 7.1 g/dL (6.3-8.2)
[2016-10-12] MEDS: PANTOPRAZOLE 40 MG/10 ML VIAL IVP SCH (10:21)
[2016-10-12] MEDS: ALLOPURINOL 300 MG TAB PO SCH (10:22)
[2016-10-12] MEDS: METOPROLOL TARTRATE 25 MG TAB PO SCH (10:22)
[2016-10-12] MEDS: VIT A,C & E-LUTEIN-MINERALS 1 EACH TAB PO SCH (10:22)
[2016-10-12 12:06] LABS: Glucose,Whole Blood 140 mg/dL (75-99)
--- NOTE | 2016-10-12 13:33 | P.DS ---
Providers Date of admission: 10/08/16 11:33 Expected date of discharge: 10/12/16 Attending physician: Pilar Rueda Consults: 10/08/16 15:38 Consult Physician Routine Consulting Provider: Ish Houser Consult Reason/Comments: leg ulcers Do you want consulting provider notified?: Yes Dr. Bonilla Primary care physician: [facility] Course: Discharge diagnosis 1. Symptomatic anemia secondary to acute blood loss anemia from possible GI bleed. As well as iron deficiency anemia. Patient has received IV iron. Hemoglobin has gone down to 7.1. He will receive 1 more units of packed red blood cells. He status post EGD and colonoscopy showing mild gastritis and a 5 mm polypectomy with small internal hemorrhoids. If patient's symptoms persist GI services recommending a small bowel capsule endoscopy. Hemoglobin at discharge is 8.0. 2. Constipation: no abdominal pain. Resolved 3. History of chronic diastolic CHF. No evidence of exacerbation. 4. Hypotension: Blood pressure 98/56. We'll continue with IV fluids. Place parameters around blood pressure medications 5. Diabetes mellitus type 2: Check hemoglobin A1c. Add sliding scale coverage. Resume the Amaryl. Hold Glucophage while in hospital 6. Chronic bilateral lower extremity ulcers. Followed by Dr. Houser in the wound care center. Patient saw Dr. Houser yesterday and had dressing changed. He is been following in the wound care center weekly. 7. History of aortic valve replacement 8. History of moderate to severe tricuspid regurgitation 9. Severe pulmonary hypertension 10. Acute kidney injury on admission with hyperkalemia. Lasix and Aldactone are on hold. Kidney factors had shown improvement. 11. Chronic atrial fibrillation GI service stated is okay to resume Xarelto Hospital course This is a 66-year-old male with a known past medical history of diastolic congestive heart failure, aortic valve replacement, atrial fibrillation on Xarelto for anticoagulation, diabetes mellitus, chronic bilateral leg ulcers in which he is followed by Dr. Houser at wound care center, hypertension, hypothyroidism, moderate to severe tricuspid regurgitation, and severe pulmonary hypertension. Patient presented to his office with severe fatigue he had evidence of fear anemia Hemoglobin in office was 6.0. Patient reports noticing black stools about a month ago. Reports that last bowel movement was about 5 days ago. States that he has been very dizzy and felt like he was going to pass out. He also notes that his lisinopril was decreased to 10 mg daily and then because of his dizziness he stopped taking it. Patient is also been more fatigued. Patient required blood transfusions and IV iron. He had a EGD and colonoscopy completed showing mild gastritis and had polypectomy and small internal hemorrhoids. Patient to stay in the hospital yesterday receive 1 more unit of blood. Hemoglobin has gone up to 8. He'll continue iron supplements at home. He did have evidence of iron deficiency anemia as well. He'll follow up with GI service. If patient's symptoms continued to persist with the symptomatic anemia patient may require capsule endoscopy. GI service has stated that was okay to resume the Xarelto and aspirin. Continue the omeprazole for his gastritis. Patient follow up with Dr. Rueda on Saturday to check CBC. Also follow up with GI service in [address] Houser on for his chronic wound care to the legs. Patient is medically stable for discharge. Patient Condition at Discharge: Stable Plan - Discharge Summary New Discharge Prescriptions: Omeprazole 20 mg PO DAILY #30 cap Discharge Medication List Allopurinol [Zyloprim] 300 mg PO DAILY 07/30/16 [History] Ergocalciferol [Vitamin D2 (DRISDOL)] 50,000 unit PO TH 07/30/16 [History] Furosemide [Lasix] 40 mg PO BID 07/30/16 [History] Lisinopril [Zestril] 10 mg PO DAILY 07/30/16 [History] Simvastatin [Zocor] 40 mg PO HS 07/30/16 [History] metFORMIN HCL [Glucophage] 1,000 mg PO DAILY 07/30/16 [History] Vision Formula With Lutein 1 tab PO DAILY 07/31/16 [History] Levothyroxine Sodium [Synthroid] 25 mcg PO 0600 tab 08/13/16 [Rx] Rivaroxaban [Xarelto] 20 mg PO AC-SUPPER tab 08/13/16 [Rx] Spironolactone [Aldactone] 25 mg PO DAILY tab 08/13/16 [Rx] Aspirin 81 mg PO DAILY 10/08/16 [History] Glimepiride [Amaryl] 1 mg PO AC-BRKFST PRN 10/08/16 [History] HYDROcodone/APAP 10-325MG [[place] 10-325] 1 tab PO Q8H PRN 10/08/16 [History] Metoprolol Tartrate [Lopressor] 25 mg PO BID 10/08/16 [History] Omeprazole 20 mg PO DAILY #30 cap 10/12/16 [Rx] Follow up Appointment(s)/Referral(s): Steph Bonilla MD [STAFF PHYSICIAN] - [facility],. [NON-STAFF] - 10/15/16 8:00 am (Dr. Houser in wound center) Pilar Rueda MD [Primary Care Provider] - 10/15/16 Patient Instructions/Handouts: Heart Failure (DC), Anemia (DC) Activity/Diet/Wound Care/Special Instructions: [facility]: #[phone] Diabetic, cardiac diet. Fall precautions, up with cane. B/l legs wound care daily til seen by Dr. Houser on Saturday10/15/16 0800 1) apply opticell to ulcers, wrap w/anand and lucia wrap Discharge Disposition: HOME WITH HOME HEALTH SERVICES
== END 2016-10-12 16:03 | disposition home health service (06) | DRG 378 ==
LOC: 4MS4W 11:33
PROVIDERS: ADMIT Internal Medicine; ATTEND Internal Medicine
PROC: 30230N1 Transfusion of Nonautologous Red Blood Cells into Peripheral Vein, Open Approach (ICD-10-PCS; 2016-10-08)
PROC: 0DBK8ZX Excision of Ascending Colon, Via Natural or Artificial Opening Endoscopic, Diagnostic (ICD-10-PCS; 2016-10-10)
PROC: 0DBN8ZX Excision of Sigmoid Colon, Via Natural or Artificial Opening Endoscopic, Diagnostic (ICD-10-PCS; 2016-10-10)
PROC: 0DBH8ZX Excision of Cecum, Via Natural or Artificial Opening Endoscopic, Diagnostic (ICD-10-PCS; 2016-10-10)
PROC: 0DB68ZX Excision of Stomach, Via Natural or Artificial Opening Endoscopic, Diagnostic (ICD-10-PCS; principal; 2016-10-10 11:00)
DX: K92.2 Gastrointestinal hemorrhage, unspecified (principal); D62 Acute posthemorrhagic anemia; N17.9 Acute kidney failure, unspecified; I95.9 Hypotension, unspecified; I50.32 Chronic diastolic (congestive) heart failure; L97.921 Non-pressure chronic ulcer of unspecified part of left lower leg limited to breakdown of skin; L97.911 Non-pressure chronic ulcer of unspecified part of right lower leg limited to breakdown of skin; I27.2 Other secondary pulmonary hypertension; I11.0 Hypertensive heart disease with heart failure; I48.2 Chronic atrial fibrillation; I27.81 Cor pulmonale (chronic); I07.1 Rheumatic tricuspid insufficiency; E87.5 Hyperkalemia; D12.0 Benign neoplasm of cecum; D12.2 Benign neoplasm of ascending colon; D12.5 Benign neoplasm of sigmoid colon; D50.9 Iron deficiency anemia, unspecified; E03.9 Hypothyroidism, unspecified; E11.9 Type 2 diabetes mellitus without complications; E78.5 Hyperlipidemia, unspecified; K29.70 Gastritis, unspecified, without bleeding; K59.00 Constipation, unspecified; K64.8 Other hemorrhoids; M10.9 Gout, unspecified; T50.0X5A Adverse effect of mineralocorticoids and their antagonists, initial encounter; Z79.82 Long term (current) use of aspirin; Z79.899 Other long term (current) drug therapy; Z79.84 Long term (current) use of oral hypoglycemic drugs; Z87.891 Personal history of nicotine dependence; Z95.3 Presence of xenogenic heart valve; Z91.041 Radiographic dye allergy status; Z82.49 Family history of ischemic heart disease and other diseases of the circulatory system; Y92.009 Unspecified place in unspecified non-institutional (private) residence as the place of occurrence of the external cause
CPT/HCPCS: 11042; 29581; 43239; 45380; 74020; 80053; 82272; 82728; 83036; 83540; 83550; 85025; 85610; 86850; 86900; 86901; 86920; 88305; 88342

== ENCOUNTER → 2016-11-02 | Day surgery (SDC) | payer MEDICARE ==
[2016-11-01 11:11] VITALS: BMI 36.3
== END ==
LOC: ORWHC2ENDO 07:03
PROVIDERS: ATTEND Internal Medicine Gastroenterology
DX: K55.20 Angiodysplasia of colon without hemorrhage (principal); D50.9 Iron deficiency anemia, unspecified; K92.2 Gastrointestinal hemorrhage, unspecified; K29.70 Gastritis, unspecified, without bleeding; Z88.8 Allergy status to other drugs, medicaments and biological substances
CPT/HCPCS: 91110